=== PATIENT | male | born 1955 | race African-American/Black ===

== ENCOUNTER 2018-11-12 12:09 | Observation (INO) | payer SELFPAY ==
[2018-11-12 12:36] LABS: ABS Eosinophils 0.7 10^3/ul (0-0.6); ABS Lymphocytes 3.4 10^3/ul (1.0-4.8); ABS Neutrophils 5.5 10^3/ul (1.5-7.7); Eosinophil % 6.2 %; Hematocrit 39 % (42-52); Hemoglobin 13.1 g/dL (14.0-18.0); Lymphocyte % 31.9 %; Mean Corpuscular HGB Conc 34 g/dL (31-36); Mean Corpuscular Hemoglobin 31 pg (27-31); Mean Corpuscular Volume 93 fL (80-94); Mean Platelet Volume 7.1 fL (7.4-10.4); Platelet Count 268 10^3/uL (150-450); Red Blood Count 4.17 10^6 /uL (4.18-5.48); Red Cell Distribution Width 15 % (10-15); White Blood Count 10.5 10^3/uL (3.5-10.8)
[2018-11-12 12:41] LABS: INR 0.89 (0.82-1.09)
[2018-11-12] MEDS ORDERED: Nitroglycerin TAB 0.4 MG* 0.4 MG TAB SL ONE (12:42)
[2018-11-12] MEDS ORDERED: Aspirin 81 mg CHEW TAB* 81 MG TAB.CHEW PO ONE (12:42)
--- NOTE | 2018-11-12 12:48 | ED ---
HPI Chest Pain - HPI Summary HPI Summary: 63 year old M presenting to [facility] accompanied by daughter with a chief complaint of intermittent chest pain since 3 days ago. Symptoms aggravated by walking. Symptoms alleviated by nothing. Patient reports pain comes and goes every 2-3 hrs and lasts 15 minutes each time. Patient reports trouble breathing and swelling in both legs. Patient denies nausea, diaphoresis, and coughing. Hx of heart attacks (2) and 6- 7 months ago stent was placed at [facility]. 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 Hx asthma. Patient denies recent travel and hx blood clots, diabetes, high cholesterol, or high BP though he states that he was on medications and was taken off. Patient denies smoking, alcohol, drug use, or allergies to medicine. Patient denies nitroglycerin use currently. - History of Current Complaint Chief Complaint: EDChestPainROMI Time Seen by Provider: 11/12/18 12:36 Hx Obtained From: Patient Onset/Duration: Started Days Ago - 3, Still Present Timing: Intermittent - every 2-3 hrs, 15 minutes each Pain Intensity: 3 Pain Scale Used: 0-10 Numeric Aggravating Factor(s): Movement - walking Alleviating Factor(s): Nothing Associated Signs and Symptoms: Positive: Calf Pain/Swelling - swelling in both legs, Other: - reports difficulty breathing. Negative: Diaphoresis, Nausea, Cough - Allergy/Home Medications Allergies/Adverse Reactions: Allergies Allergy/AdvReac Type Severity Reaction Status Date / Time No Known Allergies Allergy Verified 06/18/14 09:46 Home Medications: Home Medications NK [No Home Medications Reported] 11/12/18 [History Confirmed 11/12/18] PMH/Surg Hx/FS Hx/Imm Hx Endocrine/Hematology History: Denies: Hx Diabetes Respiratory History: Reports: Hx Asthma - Surgical History Surgery Procedure, Year, and Place: stent, hernia operation Infectious Disease History: No Infectious Disease History: Denies: Traveled Outside the [place] in Last 30 Days - Family History Known Family History: Positive: Cardiac Disease, Other - cancer Negative: Diabetes - Social History Alcohol Use: None Hx Substance Use: No Substance Use Type: Reports: None Hx Tobacco Use: Yes Smoking Status (MU): Former Smoker Review of Systems Negative: Skin Diaphoresis Positive: Chest Pain Positive: Other - trouble breathing. Negative: Cough Negative: Nausea Positive: Other - swelling in both legs All Other Systems Reviewed And Are Negative: Yes Physical Exam - Summary Physical Exam Summary: Constitutional: Well-developed, Well-nourished, Alert. (-) Distressed Skin: Warm, Dry HENT: Normocephalic; Atraumatic Eyes: Conjunctiva normal Neck: Musculoskeletal ROM normal neck. (-) JVD, (-) Stridor, (-) Tracheal deviation Cardio: Rhythm regular, rate normal, Heart sounds normal; Intact distal pulses; The pedal pulses are 2+ and symmetric. Radial pulses are 2+ and symmetric. (-) Murmur Pulmonary/Chest wall: Effort normal. (-) Respiratory distress, (-) Wheezes, (-) Rales Abd: Soft, (-) tenderness, (-) Distension, (-) Guarding, (-) Rebound Musculoskeletal: (-) Edema Lymph: (-) Cervical adenopathy Neuro: Alert, Oriented x3 Psych: Mood and affect Normal Triage Information Reviewed: Yes Vital Signs On Initial Exam: Initial Vitals Temp Pulse Resp BP Pulse Ox 98.1 F 74 18 203/80 99 11/12/18 12:11 11/12/18 12:11 11/12/18 12:11 11/12/18 12:11 11/12/18 12:11 Vital Signs Reviewed: Yes Diagnostics - Vital Signs Vital Signs Temp Pulse Resp BP Pulse Ox 11/12/18 12:11 98.1 F 74 18 203/80 99 - Laboratory Lab Results: Lab Results 11/12/18 Range/Units 12:24 WBC 10.5 (3.5-10.8) 10^3/uL RBC 4.17 L (4.18-5.48) 10^6 /uL Hgb 13.1 L (14.0-18.0) g/dL Hct 39 L (42-52) % MCV 93 (80-94) fL MCH 31 (27-31) pg MCHC 34 (31-36) g/dL RDW 15 (10-15) % Plt Count 268 (150-450) 10^3/uL MPV 7.1 L (7.4-10.4) fL Neut % (Auto) 52.0 % Lymph % (Auto) 31.9 % Laporte % (Auto) 9.6 % Eos % (Auto) 6.2 % Baso % (Auto) 0.3 % Absolute Neuts (auto) 5.5 (1.5-7.7) 10^3/ul Absolute Lymphs (auto) 3.4 (1.0-4.8) 10^3/ul Absolute Monos (auto) 1.0 H (0-0.8) 10^3/ul Absolute Eos (auto) 0.7 H (0-0.6) 10^3/ul Absolute Basos (auto) 0.0 (0-0.2) 10^3/ul Absolute Nucleated RBC 0.0 10^3/ul Nucleated RBC % 0.0 Result Diagrams: 11/12/18 12:24 11/12/18 12:24 Lab Statement: Any lab studies that have been ordered have been reviewed, and results considered in the medical decision making process. - Radiology Chest X-Ray Radiology Interpretation Completed By: Radiologist Summary of Radiographic Findings: Per radiologist,. #. Stigmata of obstructive lung disease. No acute pulmonary or cardiac process evident. ED physician has reviewed this imaging report. - EKG 1210 Cardiac Rate: NL - 74 BPM Summary of EKG Findings: borderline ST elevation v1 through v3, otherwise normal sinus rhythm at 74 BPM Re-Evaluation - Re-Evaluation First Eval Re-Evaluation Time: 13:07 Comment: Pain went away after nitroglycerin, slightly short of breath now likely asthma in nature, will give him breathing treatment Second Eval Re-Evaluation Time: 13:18 Comment: Physician discusses patient care with patient. Chest Pain Course/Dx - Course Course Of Treatment: Patient is here with exertional left-sided chest pain that radiates to his left arm. Patient had chest pain upon arrival that was relieved with nitroglycerin. Patient was given aspirin here. Patient had a negative EKG and troponin for evidence of acute ischemia. Patient had negative chest x-ray. Given patient's history of full MIs in the past, in the setting of a story that is concerning for cardiac etiology, patient is admitted to the hospital for further management and evaluation. - Diagnoses Provider Diagnoses: Acute chest pain, Wheezing Discharge ED - Sign-Out/Discharge Documenting (check all that apply): Patient Departure - admit All imaging exams completed and their final reports reviewed: Yes Patient Received Moderate/Deep Sedation with Procedure: No - Discharge Plan Condition: Stable Disposition: ADMITTED TO [facility] - Billing Disposition and Condition Condition: STABLE Disposition: [facility] - Attestation Statements Document Initiated by Gaudencio: Yes Documenting Scribe: Lilly Paz Provider For Whom Gaudencio is Documenting (Include Credential): Dr. Luis Vogel Scribe Attestation: ILilly , scribed for Dr. Luis Vogel on 11/12/18 at 1952. Scribe Documentation Reviewed: Yes Provider Attestation: The documentation as recorded by the Lilly francois accurately reflects the service I personally performed and the decisions made by me, Dr. Luis Vogel Status of Scribfelice Document: Viewed
[2018-11-12 12:53] LABS: Albumin 3.8 g/dL (3.2-5.2); Albumin/Globulin Ratio 1.7 (1-3); BUN/Creatinine Ratio 20.9 (8-20); Calcium 8.8 mg/dL (8.6-10.3); EGFR African American 68.3 (>60); EGFR Non-African American 56.4 (>60); Globulin 2.3 g/dL (2-4); Potassium 4.4 mmol/L (3.5-5.0); Total Bilirubin 0.3 mg/dL (0.2-1.0); Total Protein 6.1 g/dL (6.4-8.9)
[2018-11-12 12:56] LABS: Troponin I 0.01 ng/mL (<0.04)
[2018-11-12] MEDS ORDERED: Albuterol (2.5 MG) 0.5 % CONC 2.5 MG/0.5 ML NEB.SOLN (ICU and ED only) INH ONE (13:06)
[2018-11-12] MEDS ORDERED: Albuterol 2.5 MG/3 ML NEB.SOL* (0.083%) INH ONE (13:19)
[2018-11-12] MEDS ORDERED: Acetaminophen TAB* 325 MG PO PRN (13:46)
[2018-11-12] MEDS ORDERED: Albuterol 2.5 MG/3 ML NEB.SOL* (0.083%) INH PRN (13:46)
[2018-11-12] MEDS ORDERED: Lisinopril TAB* 5 MG PO ONE (13:53)
[2018-11-12 14:06] LABS: HDL Cholesterol 119.9 mg/dL
[2018-11-12] MEDS: Metoprolol Tartrate TAB* 25 MG PO SCH ×2 (14:20→21:18)
--- NOTE | 2018-11-12 15:43 | HP ---
HISTORY AND PHYSICAL: DATE OF ADMISSION: 11/12/18 PRIMARY CARE PROVIDER: None. CHIEF COMPLAINT: Chest pain. HISTORY OF PRESENT ILLNESS: Mr. Alcantar is a 63-year-old male who has a history of coronary artery disease and hypertension, currently on no medications, who presents to the emergency room with complaints of chest pain. He states in early 2018 he was diagnosed with coronary artery disease and underwent stent placement in [place]. He states that he was taken off his Plavix and his blood pressure medication. He ultimately moved to [place] in September 2018 to live with his daughter. He states over the last 3 days he has developed chest pain when playing with his grand kids. He states after lying down the pain would subside. He had shortness of breath associated with the chest discomfort. It did not radiate. He had no diaphoresis or nausea. Ultimately, the patient's daughter was able to convince the patient to present to the emergency room for evaluation. The patient states that the pain that is present currently has been ongoing since last evening. PAST MEDICAL HISTORY: 1. Coronary artery disease, status post stent in early 2018. 2. Hypertension. 3. Asthma. PAST SURGICAL HISTORY: Bilateral inguinal hernia repairs. MEDICATIONS: None. ALLERGIES: None. FAMILY HISTORY: Mom at the age of 79 of coronary artery disease. Dad at the age of 92 of old age. SOCIAL HISTORY: The patient is a former smoker. He quit 4 months ago. Most recently, he was smoking 3 to 4 cigarettes per day, but at his peak he was smoking 1 pack per day. He has smoked for a total of 40 years. He is a former drinker, quitting greater than 30 years ago. He previously used marijuana and cocaine up until 8 months ago. He lives with his daughter. His daughter, Alysha, would be his healthcare proxy. REVIEW OF SYSTEMS: A complete 11-system review of systems was obtained. Pertinent positives and negatives are as per HPI and otherwise negative. PHYSICAL EXAMINATION GENERAL: The patient is a well-developed, middle-aged male seen sitting up in the bed, in no acute distress. VITAL SIGNS: Blood pressure 188/83, pulse 66, respirations 20, temp 98.1, O2 sat 97% on room air. HEENT: Pupils are equal and round. Extraocular muscles are intact. There is evidence of arcus senilis. Oropharynx is clear. Oral mucosa is moist. There is no submandibular, cervical, or supraclavicular adenopathy. PULMONARY: Lungs are clear to auscultation bilaterally. CARDIAC: Normal S1 and S2. Regular rate and rhythm. I do not appreciate any murmurs. There is no lower extremity edema. ABDOMEN: Bowel sounds are present. Abdomen is soft, nontender, nondistended. MUSCULOSKELETAL: There is no cyanosis or clubbing of the digits. There is full active range of motion of all 4 extremities. NEURO: Cranial nerves II through XII are grossly intact. Sensation is intact to light touch throughout. Strength is 5/5 and symmetrical both in the upper and lower extremities bilaterally. SKIN: Warm and dry. There are no rashes. PSYCH: The patient is alert. He is oriented x3. Affect appears appropriate. DIAGNOSTIC STUDIES/LAB DATA: WBC 10.5, hemoglobin 13.1, hematocrit 39, platelets 268. INR is 0.89. Sodium 138, potassium 4.4, chloride 104, CO2 of 29 , BUN 27, creatinine 1.29, glucose 89, calcium 8.8. Bilirubin 0.3, AST 17, ALT 27, alk phos 66. Troponin 0.01. Albumin 3.8. EKG reveals normal sinus rhythm without any acute ST-T wave abnormalities. Chest x-ray: Stigmata of obstructive lung disease. No acute pulmonary or cardiac process is evident. ASSESSMENT AND PLAN: Mr. Alcantar is a 63-year-old male with a history of coronary artery disease, hypertension, past tobacco abuse, and asthma who presents to the emergency room with complaints of chest pain. 1. Chest pain. At this point, I doubt the patient is having an acute coronary syndrome given the duration of his pain and negative troponins and EKGs. The patient, however, is at risk for having progressive coronary artery disease. He states he underwent stenting procedure in early 2019; however, he does not know if he had a drug-eluting stent or a bare metal stent placed at this time. He states that he is not taking any medications including aspirin or Plavix. The patient will be started on aspirin 81 mg p.o. daily. He will have serial troponins and EKGs to ensure that this is not an acute coronary syndrome. I do believe the patient should be observed through the weekend and obtain stress test on Wednesday and try to obtain records from [place]. The patient does admit to what sounds to be claudication symptoms and this should be worked up as an outpatient given his history of coronary artery disease. 2. Hypertension. The patient's blood pressure is uncontrolled. He states that he was taken off his medications as an outpatient previously. He states that he has been off them for about 4 months. At this point, he clearly is needing antihypertensive therapy. I will initiate metoprolol 12.5 mg p.o. twice daily and lisinopril 5 mg daily. The patient does have a mildly elevated creatinine of 1.29. His renal function will need to be monitored in the setting of the addition of lisinopril for blood pressure control. 3. Asthma. The patient became slightly wheezy in the emergency room per ER provider report. The patient received an albuterol nebulizer treatment with good response. He states his breathing feels much improved at this point. 4. DVT prophylaxis. According to the Adult Thrombosis Prophylaxis Risk Factor Assessment Guide, the patient has a total risk factor score of 2 making him moderate risk. Lovenox 40 mg subcutaneous daily will be utilized as DVT prophylaxis. 5. Code status is full. TIME SPENT: Fifty five minutes was spent admitting this patient. [id number]/CPS #: [id number] IRMA
--- NOTE | 2018-11-12 18:44 | PN ---
Hospitalist Progress Note Date of Service: 11/12/18 HOSPITALIST ADDENDUM Called by RN because patient was c/o chest pain and dyspnea. Patient describes having a heart attack earlier this year, had a stent placed at [facility], discharge on Aspirin, Plavix, Crestor, and Metoprolol. States he went back to f/u and told he did not need medications anymore, so he stopped everything. Also has diagnosis of COPD and ran out of Albuterol and Symbicort a couple weeks ago. CVS: normal S1 and S2, RRR Chest: BS+ bilaterally with bilateral wheezing. Repeat EKG shows NSR at with no new ischemic changes, unchanged from prior earlier today. A/P: COPD exacerbation / chest pain / non compliance. - Continue to trend troponins. - Chest pain is resolved now, but suspect increased cardiac demand in the setting of COPD exacerbation. - Resume bronchodilators, inhaled steroids, and give short burst of steroids. - Unable to obtain [place]'s records though [facility] at this time.
[2018-11-12] MEDS ORDERED: methylPREDNISolone SOD 40 MG* 1 ML VIAL IV ONE (19:30)
[2018-11-12] MEDS: Mometasone/Formoter 200/5 MDI INH SCH (19:55)
[2018-11-12] MEDS: Albuterol/Ipratropium NEB.SOL* Albuterol 2.5 MG/Ipratropium 0.5 MG 3 ML INH SCH ×3 (19:56→23:15)
[2018-11-12] MEDS: Enoxaparin(*) 40 MG/0.4 ML SYR SUBCUT SCH (21:18)
[2018-11-13] MEDS: Albuterol/Ipratropium NEB.SOL* Albuterol 2.5 MG/Ipratropium 0.5 MG 3 ML INH SCH ×2 (02:59→07:40)
[2018-11-13] MEDS: Mometasone/Formoter 200/5 MDI INH SCH ×2 (07:40→19:43)
[2018-11-13] MEDS ORDERED: Albuterol/Ipratropium NEB.SOL* Albuterol 2.5 MG/Ipratropium 0.5 MG 3 ML INH PRN (07:45)
[2018-11-13] MEDS: Aspirin 81 mg CHEW TAB* 81 MG TAB.CHEW PO SCH (07:58)
[2018-11-13] MEDS: Lisinopril TAB* 5 MG PO SCH (07:58)
[2018-11-13] MEDS: predniSONE TAB* 20 MG PO SCH (07:58)
[2018-11-13] MEDS: Metoprolol Tartrate TAB* 25 MG PO SCH ×2 (08:13→20:46)
--- NOTE | 2018-11-13 10:25 | PN ---
Subjective Date of Service: 11/13/18 Interval History: Pt is feeling ok this AM. Last evening he developed wheezing and SOB similar to in the ER. Relieved after neb and IV steroids. No c/o SOB at this time. No chest pain. Objective Active Medications: Acetaminophen (Tylenol Tab*) 650 mg PO Q4H PRN PRN Reason: PAIN - MILD Albuterol (Ventolin 2.5 Mg/3 Ml Neb.Sherrill*) 2.5 mg INH Q4H PRN PRN Reason: SOB/WHEEZING Albuterol/Ipratropium (Duoneb (Albuterol 2.5 Mg/Ipratropium 0.5 Mg)) 1 neb INH RT.[id number] AWAKE PRN PRN Reason: SOB/WHEEZING Aspirin (Aspirin 81 Mg Chew Tab*) 81 mg PO DAILY [facility] Last Admin: 11/13/18 07:58 Dose: 81 mg Enoxaparin Sodium (Lovenox(*)) 40 mg SUBCUT Q24H [facility] Last Admin: 11/12/18 21:18 Dose: 40 mg Lisinopril (Prinivil Tab*) 5 mg PO DAILY [facility] Last Admin: 11/13/18 07:58 Dose: 5 mg Metoprolol Tartrate (Lopressor Tab*) 12.5 mg PO Q12HR [facility] Last Admin: 11/13/18 08:13 Dose: 12.5 mg Mometasone Furoate/Formoterol Fumar (Dulera 200/5 Mdi*) 2 puff INH BID [facility] Last Admin: 11/13/18 07:40 Dose: 2 puff Prednisone (Deltasone Tab*) 40 mg PO DAILY [facility] Stop: 11/17/18 09:01 Last Admin: 11/13/18 07:58 Dose: 40 mg Vital Signs - 8 hr 11/13/18 11/13/18 11/13/18 03:32 07:43 07:45 Temperature 97.4 F Pulse Rate 54 61 59 Respiratory 18 18 18 Rate Blood Pressure 151/66 (mmHg) O2 Sat by Pulse 98 95 100 Oximetry Oxygen Devices in Use Now: None Appearance: Middle aged male sitting up in bed, eating breakfast, NAD Eyes: No Scleral Icterus Ears/Nose/Mouth/Throat: Mucous Membranes Moist Respiratory: Symmetrical Chest Expansion and Respiratory Effort, Clear to Auscultation Cardiovascular: NL Sounds; No Murmurs; No JVD, RRR, No Edema Abdominal: NL Sounds; No Tenderness; No Distention Extremities: No Clubbing, Cyanosis Skin: No Nodules or Sclerosis Neurological: Alert and Oriented x 3 Result Diagrams: 11/12/18 12:24 11/12/18 12:24 Additional Lab and Data: Lab Results 11/12/18 Range/Units 12:24 WBC 10.5 (3.5-10.8) 10^3/uL RBC 4.17 L (4.18-5.48) 10^6 /uL Hgb 13.1 L (14.0-18.0) g/dL Hct 39 L (42-52) % MCV 93 (80-94) fL MCH 31 (27-31) pg MCHC 34 (31-36) g/dL RDW 15 (10-15) % Plt Count 268 (150-450) 10^3/uL MPV 7.1 L (7.4-10.4) fL Neut % (Auto) 52.0 % Lymph % (Auto) 31.9 % Citrus % (Auto) 9.6 % Eos % (Auto) 6.2 % Baso % (Auto) 0.3 % Absolute Neuts (auto) 5.5 (1.5-7.7) 10^3/ul Absolute Lymphs (auto) 3.4 (1.0-4.8) 10^3/ul Absolute Monos (auto) 1.0 H (0-0.8) 10^3/ul Absolute Eos (auto) 0.7 H (0-0.6) 10^3/ul Absolute Basos (auto) 0.0 (0-0.2) 10^3/ul Absolute Nucleated RBC 0.0 10^3/ul Nucleated RBC % 0.0 Assess/Plan/Problems-Billing Mr Alcantar is a 63 yo M who has a h/o HTN and CAD on no medications who presented to the ER with c/o chest pain. - Patient Problems (1) Chest pain Current Visit: Yes Status: Acute Code(s): R07.9 - CHEST PAIN, UNSPECIFIED SNOMED Code(s): 11709789 Comment: Pt has been restarted on metoprolol, lisinopril and ASA. Plan for stress test tomorrow. He does not know if he has a bare metal stent or CHARBEL. (2) Asthma Current Visit: Yes Status: Acute Code(s): J45.909 - UNSPECIFIED ASTHMA, UNCOMPLICATED SNOMED Code(s): 516598889 Comment: ?mild asthma possible COPD exacerbation last evening. He was reportedly wheezy and tight. Started on solumedrol and standing nebs. Much improved this AM. He told me yesterday he ran out of his inhaler at home. (3) HTN (hypertension) Current Visit: Yes Status: Acute Code(s): I10 - ESSENTIAL (PRIMARY) HYPERTENSION SNOMED Code(s): 67235713 Comment: BP much better after starting on metoprolol and lisinopril. Continue to monitor and adjust as needed. (4) DVT prophylaxis Current Visit: Yes Status: Acute Code(s): Z29.9 - ENCOUNTER FOR PROPHYLACTIC MEASURES, UNSPECIFIED SNOMED Code(s): 358380132 Comment: lovenox (5) Full code status Current Visit: Yes Status: Acute Code(s): Z78.9 - OTHER SPECIFIED HEALTH STATUS SNOMED Code(s): 834781341
[2018-11-13] MEDS: Enoxaparin(*) 40 MG/0.4 ML SYR SUBCUT SCH (20:46)
[2018-11-14] MEDS: Mometasone/Formoter 200/5 MDI INH SCH (07:34)
[2018-11-14 08:39] VITALS: BP 122/72
[2018-11-14] MEDS: Lisinopril TAB* 5 MG PO SCH (08:46)
[2018-11-14] MEDS: predniSONE TAB* 20 MG PO SCH (08:46)
[2018-11-14] MEDS: Aspirin 81 mg CHEW TAB* 81 MG TAB.CHEW PO SCH (08:46)
[2018-11-14] MEDS: Metoprolol Tartrate TAB* 25 MG PO SCH (11:06)
--- NOTE | 2018-11-14 13:26 | DS ---
AMENDED REPORT NOW INCLUDES DESIGNATED COSIGNER - ESIGNED BEFORE ADJUSTMENTS DISCHARGE SUMMARY: DATE OF ADMISSION: 11/12/18 DATE OF DISCHARGE: 11/14/18 ATTENDING PHYSICIAN: Dr. García.* (DICTATED BY CLAYTON MARROQUIN NP) PRIMARY CARE PHYSICIAN: No PCP. PRIMARY DIAGNOSES: Chest pain and hypertension. SECONDARY DIAGNOSIS: Asthma. PROCEDURES: None. STUDIES: None. PERTINENT LAB DATA: None for this admission. HOSPITAL COURSE: This is a 63-year-old male with past medical history significant for CAD with stenting in early 2018, hypertension, asthma that presented to the emergency department on 11/12/18 with chest pain and shortness of breath. VA was ruled out with serial negative troponins and an EKG that showed left ventricular hypertrophy. During the hospital course, the patient was determined to not be on aspirin or Plavix and was started on 81 mg of aspirin. It was determined that the patient's blood pressure medications had been stopped 4 months prior. Denied stopping medications on his own, was started on lisinopril and metoprolol while here. Denies any further chest pain or shortness of breath. He was supposed to have underwent a stress test today, though the patient became agitated and stated he was hungry and had his daughter bring him food, which he ate despite being told that he was going to be transported shortly for procedure. He did not want to wait another day for the procedure and opted to leave AMA. Reviewed the risks of , cardiac risk and VA. I do not agree with his decision as his FERMIN score was 3, but I believe the patient to be of capacity to make this decision. REVIEW OF SYSTEMS: Performed an 11-point system review. There were no pertinent positives. Negatives included no chest pain, shortness of breath, no palpitations. IMPRESSION: This is a 63-year-old patient with past medical history significant for CAD with stenting in early 2018, hypertension, and asthma that presented to the ED on 11/12/18 with chest pain and shortness of breath. VA was ruled out with serial negative trops and an EKG showed left ventricular hypertrophy. The patient is to undergo stress test during this admission. PHYSICAL EXAMINATION: General: The patient is a well-developed, middle-aged male, seeing sitting up in the bed, in no acute distress. Vital Signs: T 98.3 tympanically, 57 pulse, 18 resp, 97% oxygen on room air, blood pressure 122/72. HEENT: Pupils are equal and round. Extraocular muscles intact. Evidence of arcus senilis. Oropharynx clear. Oral mucosa moist. Pulmonary: Lungs are clear to auscultation bilaterally. Cardiac: S1, S2. Heart rate regular. I do not appreciate any murmurs, rubs, or gallops. No lower extremity edema. Abdomen: Abdomen is soft, nontender. Positive bowel sounds x4. Nondistended. Musculoskeletal: No clubbing or cyanosis of the digits. Full range of motion in all extremities. Neuro: No focal deficits appreciated. Strength is 5/5 in bilateral upper and lower extremities. Skin is warm and dry. No rashes or open areas. Psych: The patient is alert and oriented x4, agitated. MEDICATIONS UPON DISCHARGE: 1. Aspirin 81 mg p.o. daily. 2. Lisinopril 5 mg p.o. daily. 3. Metoprolol tartrate 12.5 mg p.o. daily. 4. Albuterol inhaler 2 puffs q.4 hours p.r.n. New prescriptions sent to [facility] include ASA, metoprolol and lisinopril. CONDITION UPON DISCHARGE: Guarded. DISPOSITION: AMA. TIME SPENT: Forty minutes. CLAYTON MARROQUIN NP [id number]/CPS #: [id number] MTDD
== END 2018-11-14 11:30 | disposition left against medical advice (07) ==
LOC: ED 12:09 → MEDTELE 13:46
PROVIDERS: ADMIT Hospitalist; ATTEND Internal Medicine
DX: R07.9 Chest pain, unspecified (principal); I10 Essential (primary) hypertension; J45.909 Unspecified asthma, uncomplicated; I25.10 Atherosclerotic heart disease of native coronary artery without angina pectoris; Z79.899 Other long term (current) drug therapy; Z95.5 Presence of coronary angioplasty implant and graft; Z87.891 Personal history of nicotine dependence; R60.0 Localized edema; R94.31 Abnormal electrocardiogram [ECG] [EKG]
CPT/HCPCS: 36415; 71046; 80053; 80061; 83036; 84484; 85025; 85610; 93005; 94640; 96372; 96374; 99284; A9270-GY; G0378; J1650; J2920; J7512

== ENCOUNTER 2018-11-16 04:48 | Emergency (ER) | payer SELFPAY ==
--- NOTE | 2018-11-16 05:26 | ED ---
Shortness of Breath - HPI Summary HPI Summary: 63 year old AA male with a history of asthma, hypertension, high cholesterol and cardiac stents has SOB for the last hour. SOB woke him from his sleep. He is having chest pain that is localized and does not radiate. Cough with green sputum. No back, shoulder or arm pain. No abdominal pain. Patient was seen in the ED on 11/12 for a similar episode of chest pain and SOB and was admitted and subsequently discharged. Patient was put on medications for asthma, high blood pressure and high cholesterol and scheduled for a stress test which he did not receive. Patient has a history of asthma but has not taken an inhaler or medications for it. Patient states he did not get medications because he has no insurance. Nothing makes the chest pain or SOB better. Dyspnea at rest and increased chest pain while breathing. No fever. - History of Current Complaint Chief Complaint: EDShortnessOfBreath Time Seen by Provider: 11/16/18 05:01 Hx Obtained From: Patient Onset/Duration: Sudden Onset Timing: Constant Current Severity: Severe Dyspnea At: Rest Aggravating Factors: Movement, Deep Breaths Alleviating Factors: Nothing Associated Signs & Symptoms: Cough (Productive) - green sputum, Wheezing, Chest Pain w/Cough Related History: Similar Episode - was seen in ED and admitted for similar episode and chest pain on 11/12/18 - Risk Factors Cardiac: CAD, Smoking, Elevated lipids, Hypertension, Family History Pseudomonas: Negative Tuberculosis: Smoking - Allergy/Home Medications Allergies/Adverse Reactions: Allergies Allergy/AdvReac Type Severity Reaction Status Date / Time No Known Allergies Allergy Verified 06/18/14 09:46 PMH/Surg Hx/FS Hx/Imm Hx Endocrine/Hematology History: Denies: Hx Diabetes Cardiovascular History: Reports: Hx Coronary Artery Disease, Hx Hypercholesterolemia, Hx Hypertension Respiratory History: Reports: Hx Asthma, Hx Chronic Obstructive Pulmonary Disease (COPD) Sensory History: Denies: Hx Contacts or Glasses, Hx Hearing Aid Opthamlomology History: Denies: Hx Contacts or Glasses - Surgical History Surgery Procedure, Year, and Place: stent, hernia operation Infectious Disease History: No Infectious Disease History: Denies: Traveled Outside the [place] in Last 30 Days - Family History Known Family History: Positive: Cardiac Disease, Other - cancer Negative: Diabetes - Social History Alcohol Use: None Hx Substance Use: No Substance Use Type: Reports: None Hx Tobacco Use: Yes Smoking Status (MU): Former Smoker Review of Systems Constitutional: Negative Negative: Fever, Chills, Fatigue Eyes: Negative ENT: Negative Positive: Palpitations, Chest Pain Positive: Shortness Of Breath - SOB woke him up out of his sleep, Cough - green sputum Gastrointestinal: Negative Negative: Abdominal Pain Genitourinary: Negative Positive: no symptoms reported Musculoskeletal: Negative Skin: Negative Neurological: Negative Psychological: Normal All Other Systems Reviewed And Are Negative: Yes Physical Exam Triage Information Reviewed: Yes Vital Signs On Initial Exam: Initial Vitals Temp Pulse Resp BP Pulse Ox 98 F 72 24 204/121 98 11/16/18 04:49 11/16/18 04:49 11/16/18 04:49 11/16/18 04:49 11/16/18 04:49 Vital Signs Reviewed: Yes Appearance: Positive: Ill-Appearing Skin: Positive: Warm, Skin Color Reflects Adequate Perfusion, Dry Head/Face: Positive: Normal Head/Face Inspection Eyes: Positive: Normal, EOMI, MARCELLA, Conjunctiva Clear ENT: Positive: Normal ENT inspection, Hearing grossly normal Neck: Positive: Supple, Nontender, No Lymphadenopathy Respiratory/Lung Sounds: Positive: Decreased Breath Sounds - decreased breath sounds bilaterally, Wheezes - tight wheezing throughout; poor air exchange Cardiovascular: Positive: Normal, RRR, Pulses are Symmetrical in both Upper and Lower Extremities Abdomen Description: Positive: Nontender, Soft Bowel Sounds: Positive: Present Musculoskeletal: Positive: Normal Neurological: Positive: Alert, Oriented to Person Place, Time, CN Intact II-III Psychiatric: Positive: Normal Diagnostics - Vital Signs Vital Signs Temp Pulse Resp BP Pulse Ox 11/16/18 04:49 98 F 72 24 204/121 98 - Laboratory Result Diagrams: 11/16/18 05:40 11/16/18 05:40 Lab Statement: Any lab studies that have been ordered have been reviewed, and results considered in the medical decision making process. Course/Dx - Course Assessment/Plan: Labs and CXR ordered. WBC 8.8, troponin .01, BNP 19. CXR compared to previous admission shows no acute changes; no signs of PE, pneumothorax or pleural effusion. Patient given albuterol treatment with improvment of symptoms. Gave 500mg levoquin. Patient discharged with prednisone 40mg/ day x 5 days and 500mg levoquin daily for 10 days. Patient instructed to continue use of inhaler every 4 hours and for shortness of breath as needed. Follow up with [facility]. Return to ED with any worsening symptoms. - Diagnoses Differential Diagnosis/HQI/PQRI: Positive: Asthma, Bronchitis, CHF, COPD Exacerbation, Pulmonary Embolism Provider Diagnoses: HTN (hypertension), Asthma, Chest pain, COPD (chronic obstructive pulmonary disease) Discharge ED - Sign-Out/Discharge Documenting (check all that apply): Patient Departure Patient Received Moderate/Deep Sedation with Procedure: No - Discharge Plan Condition: Fair Disposition: HOME Prescriptions: Levofloxacin TAB* [Levaquin TAB*] 500 mg PO DAILY #10 tab predniSONE [Prednisone 20 MG TAB] 40 mg PO DAILY #10 tablet Patient Education Materials: COPD (Chronic Obstructive Pulmonary Disease) (ED) Referrals: No Primary Care Phys,NOPCP [Primary Care Provider] - Additional Instructions: You are being treated for a COPD exacerbation Take your inhaler every 4 hours and as needed for shortness of breath Take your prescribed antibiotic and prednisone as instructed until the medication is gone Avoid triggers that cause you to be short of breath Follow up with the Care [facility] as soon as possible Return to the ED with any worsening symptoms, chest pain, shortness of breath - Billing Disposition and Condition Condition: FAIR Disposition: Home - Attestation Statements Document Initiated by Gaudencio: Yes Documenting Scribe: lowell ochoa Provider For Whom Gaudencio is Documenting (Include Credential): dr yumiko Francois Attestation: Ilowell, scribed for dr calderon on 11/17/18 at 2018. Scribe Documentation Reviewed: Yes Provider Attestation: The documentation as recorded by the lowell francois accurately reflects the service I personally performed and the decisions made by dr yumiko sexton Status of Scribe Document: Ready
[2018-11-16 05:59] LABS: ABS Basophils 0.1 10^3/ul (0-0.2); ABS Eosinophils 0.5 10^3/ul (0-0.6); ABS Lymphocytes 3.3 10^3/ul (1.0-4.8); Eosinophil % 5.5 %; Hematocrit 42 % (42-52); Lymphocyte % 37.2 %; Mean Corpuscular HGB Conc 33 g/dL (31-36); Mean Corpuscular Hemoglobin 31 pg (27-31); Mean Corpuscular Volume 94 fL (80-94); Mean Platelet Volume 7.1 fL (7.4-10.4); Nucleated Red Blood Cells % 0.1; Platelet Count 284 10^3/uL (150-450); Red Blood Count 4.47 10^6 /uL (4.18-5.48); Red Cell Distribution Width 16 % (10-15); White Blood Count 8.8 10^3/uL (3.5-10.8)
[2018-11-16] MEDS: Albuterol 2.5 MG/3 ML NEB.SOL* (0.083%) INH ONE (05:59)
[2018-11-16 06:05] LABS: INR 0.88 (0.82-1.09)
[2018-11-16] MEDS: NS 0.9% 1000 ML** 1,000 ML IV ONE (06:09)
[2018-11-16] MEDS: methylPREDNISolone SOD 40 MG* 1 ML VIAL IV ONE (06:09)
[2018-11-16 06:22] LABS: Albumin 4.1 g/dL (3.2-5.2); Albumin/Globulin Ratio 1.8 (1-3); BUN/Creatinine Ratio 28.8 (8-20); EGFR African American 87.6 (>60); EGFR Non-African American 72.4 (>60); Globulin 2.3 g/dL (2-4); Potassium 4.6 mmol/L (3.5-5.0); Total Bilirubin 0.4 mg/dL (0.2-1.0); Total Protein 6.4 g/dL (6.4-8.9)
[2018-11-16 06:24] LABS: Troponin I 0.01 ng/mL (<0.04)
[2018-11-16] MEDS: Levofloxacin TAB* 500 MG PO ONE (06:52)
[2018-11-16 07:11] VITALS: BP 0/0
== END 2018-11-16 07:10 | disposition home or self-care (01) ==
LOC: ED 04:48
DX: J44.9 Chronic obstructive pulmonary disease, unspecified (principal); I10 Essential (primary) hypertension; I25.10 Atherosclerotic heart disease of native coronary artery without angina pectoris; E78.00 Pure hypercholesterolemia, unspecified; Z87.891 Personal history of nicotine dependence; Z79.82 Long term (current) use of aspirin; Z79.899 Other long term (current) drug therapy
CPT/HCPCS: 36415; 71046; 80053; 83605; 83880; 84484; 85025; 85610; 87040; 93005; 96361; 96374; 99282; J2920

== ENCOUNTER 2018-11-19 12:39 | Emergency (ER) | payer SELFPAY ==
--- NOTE | 2018-11-19 12:51 | ED ---
Complex/Multi-Sys Presentation - HPI Summary HPI Summary: 63 year old M brought in by EMS to [facility] complains of sudden onset shortness of breath followed by sharp and stabbing chest pain while sitting down 45 minutes ago today. Symptoms aggravated by nothing. Symptoms alleviated by aspirin 162 mg , 1 nitroglycerin, and nebulizer given by EMS. Patient states that his chest pain resolved completely after the medications given by EMS. The patient rates the pain 0/10 in severity. Patient states he has hx MT x2 with stents. Patient states he takes aspirin 81 mg daily. Patient states he has hx COPD. Patient states he is a former smoker. - History Of Current Complaint Hx Obtained From: Patient Onset/Duration: Sudden Onset, Lasting Minutes - 45, Still Present - shortness of breath, Resolved - chest pain Timing: Constant, Minutes - 45 Character: Sharp Aggravating Factor(s): Nothing Alleviating Factor(s): aspirin 162 mg, 1 nitroglycerin, and nebulizer - Allergies/Home Medications Allergies/Adverse Reactions: Allergies Allergy/AdvReac Type Severity Reaction Status Date / Time No Known Allergies Allergy Verified 11/19/18 13:43 Home Medications: Home Medications Albuterol inh POWDER (NF) [Proair Respiclick] 1 puff PO Q6H 11/19/18 [History Confirmed 11/19/18] PMH/Surg Hx/FS Hx/Imm Hx Endocrine/Hematology History: Denies: Hx Diabetes Cardiovascular History: Reports: Hx Coronary Artery Disease, Hx Hypercholesterolemia, Hx Hypertension, Hx Myocardial Infarction - x2 Respiratory History: Reports: Hx Asthma, Hx Chronic Obstructive Pulmonary Disease (COPD) Sensory History: Denies: Hx Contacts or Glasses, Hx Hearing Aid Opthamlomology History: Denies: Hx Contacts or Glasses - Surgical History Surgery Procedure, Year, and Place: stent, hernia operation - Family History Known Family History: Positive: Cardiac Disease, Other - cancer Negative: Diabetes - Social History Alcohol Use: None Hx Substance Use: No Substance Use Type: Reports: None Hx Tobacco Use: Yes Smoking Status (MU): Former Smoker Review of Systems Positive: Chest Pain - resolved after aspirin and NTG Positive: Shortness Of Breath All Other Systems Reviewed And Are Negative: Yes Physical Exam - Summary Physical Exam Summary: Appearance: The patient is well-nourished in no acute distress and in no acute pain. Skin: Patient is a little diaphoretic HEENT: The head is normocephalic and atraumatic. The pupils are equal and reactive. The conjunctivae are clear and without drainage. Nares are patent and without drainage. Mouth reveals moist mucous membranes, and the throat is without erythema and exudate. The external ears are intact. The ear canals are patent and without drainage. The tympanic membranes are intact. Neck: The neck is supple with full range of motion and non-tender. There are no carotid bruits. There is no neck vein distension. Respiratory: Chest is non-tender. Lungs are clear to auscultation and breath sounds are symmetrical and equal. Cardiovascular: Heart is regular rate and rhythm. There is no murmur or rub auscultated. There is no peripheral edema and pulses are symmetrical and equal. Abdomen: The abdomen is soft and non-tender. There are normal bowel sounds heard in all four quadrants and there is no organomegaly palpated. Musculoskeletal: There is no back tenderness noted. Extremities are non-tender with full range of motion. There is good capillary refill. There is no peripheral edema or calf tenderness elicited. Neurological: Patient is alert and oriented to person, place and time. The patient has symmetrical motor strength in all four extremities. Cranial nerves are grossly intact. Deep tendon reflexes are symmetrical and equal in all four extremities. Psychiatric: The patient has an appropriate affect and does not exhibit any anxiety or depression. Triage Information Reviewed: Yes Vital Signs Reviewed: Yes Diagnostics - Laboratory Result Diagrams: 11/19/18 12:52 11/19/18 12:52 Lab Statement: Any lab studies that have been ordered have been reviewed, and results considered in the medical decision making process. - Radiology CXR Radiology Interpretation Completed By: Radiologist Summary of Radiographic Findings: LOW LUNG VOLUMES, SMALL BIBASILAR INFILTRATES SUGGESTIVE OF ATELECTASIS. ED physician has reviewed this report. - EKG 1246 Cardiac Rate: NL - 71 BPM EKG Rhythm: Sinus Rhythm Summary of EKG Findings: Normal sinus rhythm 71 BPM Re-Evaluation - Re-Evaluation First Eval Re-Evaluation Time: 17:31 Comment: second troponin is 0.01. patient feels better. patient is agreeable to discharge Complex Multi-Symp Course/Dx Course Of Treatment: By the time Mr. Alcantar arrived by ambulance his chest pain was gone. He reportedly disappeared within seconds of him being given a nitroglycerin. He was also given aspirin in the ambulance. He was nontoxic in appearance with stable vitals. His EKG, chest x-ray and labs including a delayed troponin were all within normal limits. 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 - Diagnoses Provider Diagnoses: Chest pain Discharge ED - Sign-Out/Discharge Documenting (check all that apply): Patient Departure - Discharge Patient Received Moderate/Deep Sedation with Procedure: No - Discharge Plan Condition: Stable Disposition: HOME Patient Education Materials: Chest Pain (ED) Referrals: [facility] [Outside] - 2 Days Additional Instructions: Follow up with [facility] in the next 2-3 days. Return to the Emergency Department for new or worsening symptoms. - Billing Disposition and Condition Condition: STABLE Disposition: Home - Attestation Statements Document Initiated by Gaudencio: Yes Documenting Scribe: Scarlett Kelley Provider For Whom Darrenibe is Documenting (Include Credential): Peter Pete MD Scribe Attestation: IScarlett, scribed for Peter Pete MD on 11/19/18 at 1954. Scribe Documentation Reviewed: Yes Provider Attestation: The documentation as recorded by the Scarlett francois accurately reflects the service I personally performed and the decisions made by me, Peter Pete MD Status of Scribe Document: Viewed
[2018-11-19 13:00] LABS: Hematocrit 38 % (42-52); Hemoglobin 12.7 g/dL (14.0-18.0); Mean Corpuscular HGB Conc 33 g/dL (31-36); Mean Corpuscular Hemoglobin 31 pg (27-31); Mean Corpuscular Volume 95 fL (80-94); Mean Platelet Volume 7.1 fL (7.4-10.4); Platelet Count 266 10^3/uL (150-450); Red Blood Count 4.04 10^6 /uL (4.18-5.48); Red Cell Distribution Width 15 % (10-15); White Blood Count 10.4 10^3/uL (3.5-10.8)
[2018-11-19 13:05] LABS: INR 0.91 (0.82-1.09)
[2018-11-19 13:31] LABS: ABS Basophils 0.1 10^3/ul (0-0.2); ABS Eosinophils 0.3 10^3/ul (0-0.6); ABS Lymphocytes 2.4 10^3/ul (1.0-4.8); ABS Monocytes 0.8 10^3/ul (0-0.8); ABS Neutrophils 6.8 10^3/ul (1.5-7.7); Eosinophil % 3.3 %; Lymphocyte % 22.8 %; Nucleated Red Blood Cells % 0.1
[2018-11-19 13:36] LABS: Albumin 3.8 g/dL (3.2-5.2); Albumin/Globulin Ratio 1.8 (1-3); BUN/Creatinine Ratio 22.9 (8-20); Calcium 8.8 mg/dL (8.6-10.3); EGFR Non-African American 79.4 (>60); Globulin 2.1 g/dL (2-4); Total Bilirubin 0.3 mg/dL (0.2-1.0); Total Protein 5.9 g/dL (6.4-8.9)
[2018-11-19 13:38] LABS: Troponin I 0.01 ng/mL (<0.04)
[2018-11-19] MEDS ORDERED: Acetaminophen TAB* 325 MG PO ONE (14:27)
[2018-11-19 14:59] LABS: Potassium 5.1 mmol/L (3.5-5.0)
[2018-11-19 17:00] LABS: Urine Appearance Clear; Urine Bacteria Absent (Absent); Urine Bilirubin Negative (Negative); Urine Blood 1+ (Negative); Urine Color Yellow; Urine Glucose Negative (Negative); Urine Ketones Negative (Negative); Urine Nitrite Negative (Negative); Urine Protein Negative (Negative); Urine Red Blood Cell Absent (Absent); Urine Specific Gravity 1.014 (1.010-1.030); Urine Urobilinogen Negative (Negative); Urine White Blood Cell Absent (Absent)
[2018-11-19 17:53] VITALS: BP 161/66
== END 2018-11-19 17:45 | disposition home or self-care (01) ==
LOC: ED 12:39
DX: R07.9 Chest pain, unspecified (principal); J44.9 Chronic obstructive pulmonary disease, unspecified; R06.02 Shortness of breath; Z87.891 Personal history of nicotine dependence; I25.10 Atherosclerotic heart disease of native coronary artery without angina pectoris; E78.00 Pure hypercholesterolemia, unspecified; I25.2 Old myocardial infarction; I10 Essential (primary) hypertension; R94.31 Abnormal electrocardiogram [ECG] [EKG]
CPT/HCPCS: 36415; 71045; 80053; 81003; 81015; 83605; 84484; 85025; 85610; 93005; 99285; A9270-GY

== ENCOUNTER 2018-12-30 09:46 | Observation (INO) | payer SELFPAY ==
[2018-12-30] MEDS ORDERED: NS 0.9% 1000 ML** 1,000 ML IV ONE (09:53)
[2018-12-30] MEDS ORDERED: methylPREDNISolone 125 MG* 2 ML VIAL IV ONE (09:53)
[2018-12-30] MEDS ORDERED: Albuterol/Ipratropium NEB.SOL* Albuterol 2.5 MG/Ipratropium 0.5 MG 3 ML INH ONE ×2 (09:53→11:51)
[2018-12-30] MEDS ORDERED: Magnesium Sulfate 2 GM IV* 2 GM/50 ML BAG IVPB ONE (09:55)
--- OUTSIDE RECORDS SUMMARY | 2018-12-30 09:57 | XMS REPORT | Continuity of Care Document ---
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 Problems Description No Information Available Social History Type Date Description Comments Sex Unknown Allergies, Adverse Reactions, Alerts Description No Known Drug Allergies Medications Active Medications SIG Qnty Indications Ordering Date Provider Nebulizer System use 4 times/day as 1units J45.998 Nida Rai, 2018 ALL-In-One needed DO Misc Albuterol Sulfate 1 unit dose via 180ml J45.998 Nida Rai, 11/22/2018 nebulizer every 4 DO (2.5mg/3ML) 0.083% hours as needed Nebulizer Symbicort 2 puff twice a day 6gm J45.998 iNda Rai, 11/22/2018 DO 160-4.5mcg/Act Aerosol Aspirin Adult Low 1 by mouth every Unknown Dose day 81mg Tablets Lisinopril 1 by mouth every Unknown 5mg day Tablets Metoprolol Tartrate 1/2 tab PO qd Unknown 25mg Tablets Albuterol Sulfate one puff every 6 8.500gm Nida Rai, HFA hours DO 108(90Base) mcg/Act Aerosol Prednisone 2 tablets day one Unknown 20mg and two, 1 tablet Tablets day 3,4,5, then one half tablet day 6,7,8 and 9 Immunizations Description No Information Available Vital Signs Date Vital Result Comment 11/22/2018 11:13am Height 71 inches 5'11" Weight 200.50 lb Heart Rate 72 /min BP Systolic 130 mmHg BP Diastolic 78 mmHg Body Temperature 98.2 F O2 % BldC Oximetry 94 % BMI (Body Mass Index) 28.0 kg/m2 Results Description No Information Available Procedures Description No Information Available Medical Devices Description No Information Available Encounters Type Date Location Provider Dx Diagnosis Office Visit 11/22/2018 [facility] Internal Nida Senner, R07.9 Chest pain, 11:00a Medicine - Suite DO unspecified R I10 Essential (primary) hypertension J45.998 Other asthma Z12.11 Encounter for screening for malignant neoplasm of colon Z12.2 Encntr screen for malignant neoplasm of respiratory organs Office Visit 11/14/2018 [facility] Hilda Melchor, R07.9 Chest pain, 9:31a Assoc,pc [employer] unspecified Hospitalists I10 Essential (primary) hypertension J45.909 Unspecified asthma, uncomplicated Office Visit 11/12/2018 9:30a [facility] Brii R07.9 Chest pain, Assoc,pc Cassius, D.O. unspecified Hospitalists I10 Essential (primary) hypertension J45.909 Unspecified asthma, uncomplicated Assessments Date Code Description Provider 11/22/2018 R07.9 Chest pain, unspecified Nida Senner, DO 11/22/2018 I10 Essential (primary) hypertension Nida Senner, DO 11/22/2018 J45.998 Other asthma Nida Senner, DO 11/22/2018 Z12.11 Encounter for screening for malignant Nida Senner, DO neoplasm of colon 11/22/2018 Z12.2 Encounter for screening for malignant Nida Senner, DO neoplasm of respiratory organs 11/14/2018 R07.9 Chest pain, unspecified Hilda Melchor, [employer] 11/14/2018 I10 Essential (primary) hypertension Hilda Melchor, [employer] 11/14/2018 J45.909 Unspecified asthma, uncomplicated Hilda Melchor, [employer] 11/13/2018 R07.9 Chest pain, unspecified Brii Hammonds D.O. 11/13/2018 J45.909 Unspecified asthma, uncomplicated Briixavier Hammonds D.O. 11/13/2018 I10 Essential (primary) hypertension Brii Hammonds D.O. 11/12/2018 R07.9 Chest pain, unspecified Brii Hammonds D.O. 11/12/2018 I10 Essential (primary) hypertension Brii Hammonds D.O. 11/12/2018 J45.909 Unspecified asthma, uncomplicated Brii Hammonds D.O. Plan of Treatment Future Appointment(s):02/21/2019 4:00 pm - Nida Rai DO at [facility] Internal Medicine - [address]/22/2018 - LILY Jamison07.9 Chest pain, unspecifiedNew Orders:Stress Test, Exercise Echocardiogram, Ordered: Comments:you need a stress testFollow up:3 [id number] Essential (primary) hypertensionComments:your blood pressure is good today--keep taking the metoprolol and vqwxfezuijO05.998 Other asthmaNew Medication:Nebulizer System ALL -In-One - use 4 times/day as neededAlbuterol Sulfate (2.5 mg/3ML) 0.083% - 1 unit dose via nebulizer every 4 hours as neededSymbicort 160-4.5 mcg/Act - 2 puff twice a dayZ12.11 Encounter for screening for malignant neoplasm of colonReferral:Navarro Shane MD, LjuzkamtxwionyrrV56.2 Encounter for screening for malignant neoplasm of respiratory organsNew Xrays:CT Lung Screening-Low Dose , Ordered: 11/22/18 Functional Status Description No Information Available Mental Status Description No Information Available Referrals Refer to Dr Reason for Referral Status Appt Date Navarro Shane MD Created [address] [place] [id number] [phone]
[2018-12-30 10:12] LABS: ABS Basophils 0.1 10^3/ul (0-0.2); ABS Lymphocytes 2.3 10^3/ul (1.0-4.8); Eosinophil % 10.3 %; Hematocrit 41 % (42-52); Hemoglobin 13.7 g/dL (14.0-18.0); Lymphocyte % 24.6 %; Mean Corpuscular HGB Conc 33 g/dL (31-36); Mean Corpuscular Hemoglobin 31 pg (27-31); Mean Corpuscular Volume 94 fL (80-94); Platelet Count 287 10^3/uL (150-450); Red Blood Count 4.35 10^6 /uL (4.18-5.48); Red Cell Distribution Width 14 % (10-15); White Blood Count 9.4 10^3/uL (3.5-10.8)
[2018-12-30 10:18] LABS: INR 0.99 (0.82-1.09)
[2018-12-30 10:59] LABS: Albumin/Globulin Ratio 1.5 (1-3); BUN/Creatinine Ratio 14.4 (8-20); C Reactive Protein 3.4 mg/L (<8.01); Calcium 9.2 mg/dL (8.6-10.3); EGFR African American 62.7 (>60); EGFR Non-African American 51.8 (>60); Globulin 2.6 g/dL (2-4); Potassium 4.2 mmol/L (3.5-5.0); Total Bilirubin 0.4 mg/dL (0.2-1.0); Total Protein 6.6 g/dL (6.4-8.9)
--- NOTE | 2018-12-30 11:41 | ED ---
HPI Cardiac - HPI Summary HPI Summary: Patient is a 63-year-old with a history of COPD, hypertension, [place] in March 2018 and subsequently again in June 2018 and a 40+ pack year per day smoker, quit 9 months ago, presenting to the ED with shortness of breath which is been worsening of the past 3 days. He states it became very bad last evening, and despite having his albuterol treatments and his DuoNeb times, he continues to worsen. He endorses a cough without production. He endorses chest pain associated with cough, however denies chest pain otherwise. Denies any radiation of this chest pain including down the arm or up into the jaw. Symptoms are not worse with exertion. He has needed to be admitted for CP and SOB in the past. No modifying factors. Patient unable to speak full sentences on arrival. Family hx includes: HTN, [place] Social hx: recent quit smoker Surg hx: stent placements - History of Current Complaint Chief Complaint: EDRespiratoryDistress Stated Complaint: SHORT OF BREATH Time Seen by Provider: 12/30/18 09:49 Hx Obtained From: Patient Onset/Duration: Started Hours Ago Timing: Constant Initial Severity: Moderate Current Severity: Moderate Pain Intensity: 0 Pain Scale Used: 0-10 Numeric Chest Pain Radiates: No Aggravating Factor(s): Nothing Alleviating Factor(s): Nothing Associated Signs and Symptoms: Positive: Chest Pain, Shortness of Breath, Nonproductive Cough, URI. Negative: Diaphoresis, Nausea, Palpitations, Hemoptysis - Risk Factors Pulmonary Embolism Risk Factors: Negative Cardiac Risk Factors: Hypertension, Smoking - quit 9 mos ago, Family History, Prior [place] Atrial Fibrillation Risk Factors: Hypertension TAD Risk Factors: Hypertension AMI/ACS Risk Factors: Myocardial Infarction, Hypertension, Smoking Pseudomonas Risk Factors: Chronic Lung Disease Tuberculosis Risk Factors: Corticosteroid Use - Additional Pertinent History Primary Care Physician: [id number] - Allergy/Home Medications Allergies/Adverse Reactions: Allergies Allergy/AdvReac Type Severity Reaction Status Date / Time No Known Allergies Allergy Verified 11/19/18 13:43 Home Medications: Home Medications Albuterol 2.5MG/3ML (0.083%)* [Ventolin 2.5 MG/3 ML NEB.MARCO*] 2.5 mg INH Q4H PRN 12/30/18 [History Confirmed 12/30/18] Budesonide/Formote 160/4.5(NF) [Symbicort 160/4.5 (NF)] 1 puff INH BID 12/30/18 [History Confirmed 12/30/18] PMH/Surg Hx/FS Hx/Imm Hx Previously Healthy: Yes Endocrine/Hematology History: Denies: Hx Diabetes Cardiovascular History: Reports: Hx Coronary Artery Disease, Hx Hypercholesterolemia, Hx Hypertension, Hx Myocardial Infarction - x2 Respiratory History: Reports: Hx Asthma, Hx Chronic Obstructive Pulmonary Disease (COPD) Sensory History: Denies: Hx Contacts or Glasses, Hx Hearing Aid Opthamlomology History: Denies: Hx Contacts or Glasses - Surgical History Surgery Procedure, Year, and Place: stent, hernia operation Infectious Disease History: No Infectious Disease History: Denies: Traveled Outside the [place] in Last 30 Days - Family History Known Family History: Positive: Cardiac Disease, Other - cancer Negative: Diabetes - Social History Occupation: Unemployed Lives: With Family Alcohol Use: None Hx Substance Use: No Substance Use Type: Reports: None Hx Tobacco Use: Yes Smoking Status (MU): Former Smoker Review of Systems Negative: Fever, Chills, Fatigue, Skin Diaphoresis Positive: Chest Pain Positive: Shortness Of Breath, Cough Negative: Abdominal Pain, Vomiting, Diarrhea Genitourinary: Negative Positive: no symptoms reported, see HPI Negative: Arthralgia, Myalgia Neurological: Negative All Other Systems Reviewed And Are Negative: Yes Physical Exam Triage Information Reviewed: Yes Vital Signs On Initial Exam: Initial Vitals Temp Pulse Resp BP Pulse Ox 98.6 F 87 32 180/80 98 12/30/18 09:47 12/30/18 09:47 12/30/18 09:47 12/30/18 09:47 12/30/18 09:47 Vital Signs Reviewed: Yes Appearance: Positive: Ill-Appearing Skin: Positive: Warm, Skin Color Reflects Adequate Perfusion Head/Face: Positive: Normal Head/Face Inspection Eyes: Positive: EOMI, Conjunctiva Clear Neck: Positive: Supple, No Lymphadenopathy Respiratory/Lung Sounds: Positive: Breath Sounds Present, Wheezes, Unable to speak in full sentences, Fatigue Cardiovascular: Positive: RRR, Pulses are Symmetrical in both Upper and Lower Extremities Neurological: Positive: Normal, Sensory/Motor Intact, Alert, Oriented to Person Place, Time Psychiatric: Positive: Normal, Affect/Mood Appropriate AVPU Assessment: Alert Procedures - Sedation Patient Received Moderate/Deep Sedation with Procedure: No Diagnostics - Vital Signs Vital Signs Temp Pulse Resp BP Pulse Ox 12/30/18 11:07 70 14 144/77 97 12/30/18 11:00 74 11 97 12/30/18 10:55 81 20 175/78 96 12/30/18 10:09 69 20 99 12/30/18 10:08 79 165/88 99 12/30/18 10:07 73 98 12/30/18 09:47 98.6 F 87 32 180/80 98 - Laboratory Lab Results: Lab Results 12/30/18 12/30/18 12/30/18 Range/Units 10:05 10:05 10:05 WBC 9.4 (3.5-10.8) 10^3/uL RBC 4.35 (4.18-5.48) 10^6 /uL Hgb 13.7 L (14.0-18.0) g/dL Hct 41 L (42-52) % MCV 94 (80-94) fL MCH 31 (27-31) pg MCHC 33 (31-36) g/dL RDW 14 (10-15) % Plt Count 287 (150-450) 10^3/uL MPV 7.0 L (7.4-10.4) fL Neut % (Auto) 53.4 % Lymph % (Auto) 24.6 % Webb % (Auto) 10.6 % Eos % (Auto) 10.3 % Baso % (Auto) 1.1 % Absolute Neuts (auto) 5.0 (1.5-7.7) 10^3/ul Absolute Lymphs (auto) 2.3 (1.0-4.8) 10^3/ul Absolute Monos (auto) 1.0 H (0-0.8) 10^3/ul Absolute Eos (auto) 1.0 H (0-0.6) 10^3/ul Absolute Basos (auto) 0.1 (0-0.2) 10^3/ul Absolute Nucleated RBC 0.0 10^3/ul Nucleated RBC % 0.0 INR (Anticoag Therapy) 0.99 (0.82-1.09) Sodium 141 (135-145) mmol/L Potassium 4.2 (3.5-5.0) mmol/L Chloride 106 (101-111) mmol/L Carbon Dioxide 24 (22-32) mmol/L Anion Gap 11 (2-11) mmol/L BUN 20 (6-24) mg/dL Creatinine 1.39 H (0.67-1.17) mg/dL Est GFR ( Amer) 62.7 (>60) Est GFR (Non-Af Amer) 51.8 (>60) BUN/Creatinine Ratio 14.4 (8-20) Glucose 103 H (70-100) mg/dL Lactic Acid (0.5-2.0) mmol/L Calcium 9.2 (8.6-10.3) mg/dL Total Bilirubin 0.40 (0.2-1.0) mg/dL AST 19 (13-39) U/L ALT 20 (7-52) U/L Alkaline Phosphatase 70 (34-104) U/L Troponin I 0.04 H* (<0.04) ng/mL C-Reactive Protein 3.40 (<8.01) mg/L B-Natriuretic Peptide (<=100) pg/mL Total Protein 6.6 (6.4-8.9) g/dL Albumin 4.0 (3.2-5.2) g/dL Globulin 2.6 (2-4) g/dL Albumin/Globulin Ratio 1.5 (1-3) 12/30/18 12/30/18 Range/Units 10:05 10:05 WBC (3.5-10.8) 10^3/uL RBC (4.18-5.48) 10^6 /uL Hgb (14.0-18.0) g/dL Hct (42-52) % MCV (80-94) fL MCH (27-31) pg MCHC (31-36) g/dL RDW (10-15) % Plt Count (150-450) 10^3/uL MPV (7.4-10.4) fL Neut % (Auto) % Lymph % (Auto) % Webb % (Auto) % Eos % (Auto) % Baso % (Auto) % Absolute Neuts (auto) (1.5-7.7) 10^3/ul Absolute Lymphs (auto) (1.0-4.8) 10^3/ul Absolute Monos (auto) (0-0.8) 10^3/ul Absolute Eos (auto) (0-0.6) 10^3/ul Absolute Basos (auto) (0-0.2) 10^3/ul Absolute Nucleated RBC 10^3/ul Nucleated RBC % INR (Anticoag Therapy) (0.82-1.09) Sodium (135-145) mmol/L Potassium (3.5-5.0) mmol/L Chloride (101-111) mmol/L Carbon Dioxide (22-32) mmol/L Anion Gap (2-11) mmol/L BUN (6-24) mg/dL Creatinine (0.67-1.17) mg/dL Est GFR ( Amer) (>60) Est GFR (Non-Af Amer) (>60) BUN/Creatinine Ratio (8-20) Glucose (70-100) mg/dL Lactic Acid 1.1 (0.5-2.0) mmol/L Calcium (8.6-10.3) mg/dL Total Bilirubin (0.2-1.0) mg/dL AST (13-39) U/L ALT (7-52) U/L Alkaline Phosphatase (34-104) U/L Troponin I (<0.04) ng/mL C-Reactive Protein (<8.01) mg/L B-Natriuretic Peptide 35 (<=100) pg/mL Total Protein (6.4-8.9) g/dL Albumin (3.2-5.2) g/dL Globulin (2-4) g/dL Albumin/Globulin Ratio (1-3) Result Diagrams: 12/30/18 10:05 12/30/18 10:05 Lab Statement: Any lab studies that have been ordered have been reviewed, and results considered in the medical decision making process. Disposition - Course Course Of Treatment: Patient is evaluated for shortness of breath. On arrival into the ED, he has audible wheezing, is tachypnic and appears to be in respiratory distress. Duo neb given on arrival. Placed on 3L O2. Mag 2mg IV, methylprednisolone 125mg and fluids given. CXR shows COPD and hyperinflation with no evidence of PNA. Trop 0.00. Flu negative. MRSA swab sent and pending. Over the course of 2 hours, he was titrated down to 1L and sat at 94% . He was given another duo neb as he continues to feel SOB. Denies CP at this time. Physical exam reveals crackles in the bilateral lung bases with wheezing throughout. Discussed with Dr. Lezama and Dr. Carey. Pt will be admitted for COPD exacerbation. HEART SCORE = 6. MODERATE RISK. - Differential Dx - Cardiopulmonary Differential Diagnoses - Cardiopulmonary: Acute Dyspnea, Bronchitis, Exacerbation Of COPD - Diagnoses Provider Diagnoses: Asthma, HTN (hypertension), Chest pain, Shortness of breath - Physician Notifications Discussed Care Of Patient With: Kenny Carey Instructed by Provider To: Admit As Inpatient - Critical Care Time Critical Care Time: 30-74 min Discharge ED - Sign-Out/Discharge Documenting (check all that apply): Patient Departure - Discharge Plan Condition: Fair Disposition: ADMITTED TO [facility] Referrals: Nida Rai DO [Primary Care Provider] - - Billing Disposition and Condition Condition: FAIR Disposition: Admitted to [facility]
[2018-12-30] MEDS ORDERED: Ondansetron INJ* 2 MG/ML VIAL IV PRN (12:32)
[2018-12-30 12:35] LABS: Influenza A Molecular NEGATIVE (Negative); Influenza B Molecular NEGATIVE (Negative)
[2018-12-30] MEDS ORDERED: Albuterol HFA INHALER* 8 gm MDI INH PRN (12:41)
[2018-12-30] MEDS: Albuterol 2.5 MG/3 ML NEB.SOL* (0.083%) INH SCH ×6 (13:06→23:12)
--- NOTE | 2018-12-30 15:20 | HP ---
MEDICINE HISTORY AND PHYSICAL: DATE OF ADMISSION: 12/30/18 PROVIDER: Shelly Joyce NP. ATTENDING PHYSICIAN: Dr. Kenny Carey * (dictated by Shelly Joyce NP) . PRIMARY CARE PROVIDER: Nida Rai DO. CHIEF COMPLAINT: Shortness of breath. HISTORY OF PRESENT ILLNESS: Mr. Alcantar is a 63-year-old male patient presenting to the ER today at recommendation of his daughter for evaluation of shortness of breath. He states the symptoms started approximately 3 days ago and that he has been utilizing his inhaler up to 7 to 8 times a day at least. He has coughing. He has sinus congestion. He reports chest tightness across his sternum, but denies any radiating pain to his neck, jaw, back, also denying any diaphoresis, body aches, vomiting or sick contacts. He does not have difficulty lying flat. He recently moved here from [place] earlier in the fall, and was admitted to [facility] from 11/12/18 to 11/14/18 for chest pain. At that time, he had a FERMIN score of 3 and was admitted for a stress test which he refused. He was established with a primary care provider upon discharge and did see Nida Rai DO, on 11/22/18 per the admitted notes. At that time, he presented to the office with complaint of shortness of breath. She had noted that he was recently treated in the ER with prednisone and Levaquin. Following that visit, he was started on Symbicort and ordered to follow up PFT' s once his respiratory infection cleared as well as stress echo and a CT chest. These tests have not yet been performed and he has not had his Symbicort as there was difficulty obtaining it from the pharmacy, likely due to insurance issues. Here in the ER, he was evaluated. His chest x-ray report impression reads stigmata of chronic lung disease with hyperinflation but no active cardiopulmonary disease. His EKG did not show any ST or T-wave changes to suggest ischemia but did show left ventricular hypertrophy. His labs were drawn and he had concern for slightly elevated creatinine of 1.39. CRP was 3.4. He had negative flu swab. D-dimer less than 200, and troponin was initially 0.04 but upon repeat check was noted to be 0.00; however, given the patient's respiratory presentation, the extent of his wheezing and discomfort, hospital nursing was consulted for admission. PAST MEDICAL HISTORY: Includes: 1. Coronary artery disease, he reports 2 episodes of VA with a stent that was placed in 2019. 2. Hypercholesterolemia. 3. Hypertension. 4. Asthma with no formal diagnosis of COPD. HOME MEDICATIONS: 1. Aspirin 81 mg. 2. Lisinopril 5 mg. 3. Metoprolol tartrate 12.5 mg b.i.d. 4. ProAir 1 puff inhaled q.6 hours p.r.n. 5. Albuterol nebulizer 2.5 mg inhaled q.4 hours p.r.n. 6. Symbicort 160/4.5 mcg 1 puff inhaled b.i.d. ALLERGIES: No known drug allergies. FAMILY HISTORY: His mother of coronary artery disease. His father of old age. SOCIAL HISTORY: He reports he is a former smoker. He has been abstaining from cigarettes for approximately 9 months. He is a former one pack per day smoker for approximately 40 years. He denies any alcohol use stating that he stopped this greater than 30 years ago. Denies any illicit drug use. He lives with his daughter. He is not currently working. His daughter, Karin Bowman, is his surrogate decision maker in the event of emergency. REVIEW OF SYSTEMS: A 12-point review of systems was completed, all pertinent positives and negatives as per the HPI. PHYSICAL EXAMINATION VITAL SIGNS: Temperature 98.6, heart rate 85, respiratory rate 20, blood pressure 163/88, and O2 saturation is 95% on room air. HEENT: Head is atraumatic, normocephalic. Face is symmetrical. Pupils are equal, round, and reactive to light and accommodation. Extraocular movements are intact. There is evidence of arcus senilis. Tympanic membranes are pearly morse and intact. Oral mucosa is moist. There is no oropharyngeal erythema or exudate. NECK: Supple. No JVD noted. Full range of motion is present. There is no submandibular, cervical or supraclavicular adenopathy. CHEST: Tender to palpation across the sternum. Lungs with expiratory wheezing noted in the upper and lower lobes, there are bibasilar crackles noted on expiration. CARDIAC: Normal S1, S2 heart sounds. Regular rate and rhythm. No murmurs appreciated. No peripheral edema noted. ABDOMEN: Bowel sounds are present. Abdomen is soft, nontender, nondistended. There is no guarding or rebound tenderness. MUSCULOSKELETAL: There is no clubbing or cyanosis of the digits. There is full active range of motion of all 4 extremities. SKIN: Warm and dry, appears grossly intact. NEURO: Cranial nerves II through XII are grossly intact. Sensation is intact to light touch throughout. [employer] and strength are 5/5 and symmetrical in both upper and lower extremities bilaterally. He is alert and oriented x3. LABORATORY DATA AND DIAGNOSTIC STUDIES: CBC: WBC 9.4, hemoglobin 13.7, hematocrit 41, platelet count 287. INR 0.99, D-dimer less than 200. CMP: Sodium 121, potassium 4.2, chloride 106, carbon dioxide 24, BUN 20, creatinine 1.39, glucose 103, lactic acid 1.1, calcium 9.2. Total bilirubin 0.4, AST 19, ALT 20, alk phos 70. Troponin 0.00. CRP 3.40. BNP 35. Albumin 4.0. Rapid influenza is negative for flu A and flu B. EKG, chest x-ray as per above. ASSESSMENT AND PLAN: This is a 63-year-old male with a history of coronary artery disease, hypertension, previous tobacco use, hypercholesterolemia, asthma , who presents to the ER today with concern for shortness of breath, likely secondary to chronic lung disease exacerbation. He will be admitted under observation. Plan as follows: 1. Suspected chronic obstructive pulmonary disease exacerbation. Mr. Alcantar has not had formal PFT's that I can see on records but given his x-ray finding and presentation, he presents as a patient with COPD with likely exacerbation. He is afebrile. There is no leukocytosis. CXR was reviewed by myself and Dr. Carey; there is an area in the RML that is not present on XR from last month that is suspicious for developing infiltrate. Plan to start azithromycin and ceftriaxone for community acquired pneumonia. We will support him with steroids, nebulizer treatments and monitor him closely with the use of p.r.n. oxygen as appropriate. He is ordered a respiratory protocol. He is ordered scheduled nebulizer treatments at this time and he will be started on prednisone 60 mg tomorrow as he has already received methylprednisolone 125 mg IV here in the ER. We will restart him on his Symbicort and ensure that he has his medication or a comfortable ICS/LABA inhaler upon discharge. 2. Elevated troponin, this has been corrected from 0.04 to 0.00. We will follow this but he is currently without chest pain. Chest pain is reproducible across the chest and appears to be secondary to costochondritis from the patient 's coughing. D-dimer is negative. Continue supportive care. 3. Coronary artery disease. Continue home metoprolol, aspirin and we will monitor him on telemetry. 4. Hypertension. Blood pressure is mildly hypertensive at this time. We will continue to follow. He is on lisinopril, metoprolol tartrate which we will continue. We will order p.r.n. hydralazine and we will check to make sure that he took his appropriate doses this morning before coming into the ER. 5. FEN. He is ordered a heart healthy diet. 6. DVT prophylaxis. He is ordered a subcu heparin. 7. Code status. He is a full code. TIME SPENT: Approximately 60 minutes was spent on this admission with more than half that time spent [id number] with the patient, obtaining history and physical, performing physical examination, and reviewing the plan of care. Plan of care was also reviewed with my attending Dr. Carey who is in agreement. SHELLY JOYCE NP [id number]/CPS #: [id number] MTDD
[2018-12-30] MEDS ORDERED: guaiFENesin 100 mg/5 ml LIQ unit dose cup PO PRN (16:20)
[2018-12-30] MEDS: Acetaminophen TAB* 325 MG PO PRN ×2 (17:24→21:44)
[2018-12-30] MEDS: Heparin VIAL(*) 5000 UNITS/ML VIAL (FIVE THOUSAND) SUBCUT SCH ×2 (17:24→21:44)
[2018-12-30] MEDS ORDERED: Azithromycin 500 mg/250 ml NS 500 MG/250 ML BAG IVPB ONE (17:53)
[2018-12-30] MEDS ORDERED: hydrALAZINE IV* 20 MG/ML VIAL IV SLOW PU PRN (18:01)
[2018-12-30] MEDS: cefTRIAXone(*) 1 GM in NS 0.9% 50 ML* 50 ML IVPB SCH (19:15)
[2018-12-30] MEDS: Mometasone/Formoter 200/5 MDI INH SCH (19:27)
[2018-12-30] MEDS: Metoprolol Tartrate TAB* 25 MG PO SCH (20:03)
[2018-12-30] MEDS: guaiFENesin ER TAB 600 MG PO SCH (20:03)
[2018-12-30] MEDS: Benzonatate CAP* 100 MG PO PRN (21:44)
[2018-12-31] MEDS ORDERED: hydrALAZINE IV* 20 MG/ML VIAL IV SLOW PU PRN (00:02)
[2018-12-31] MEDS ORDERED: Labetalol IV* 5 MG/ML 20 ML VIAL IV PUSH PRN (01:23)
[2018-12-31] MEDS: Albuterol 2.5 MG/3 ML NEB.SOL* (0.083%) INH SCH ×6 (02:48→23:24)
[2018-12-31] MEDS: Heparin VIAL(*) 5000 UNITS/ML VIAL (FIVE THOUSAND) SUBCUT SCH ×3 (05:29→21:46)
[2018-12-31 05:59] LABS: ABS Basophils 0.1 10^3/ul (0-0.2); ABS Lymphocytes 1.9 10^3/ul (1.0-4.8); ABS Monocytes 1.1 10^3/ul (0-0.8); ABS Neutrophils 11.2 10^3/ul (1.5-7.7); Eosinophil % 0.1 %; Hematocrit 41 % (42-52); Hemoglobin 13.8 g/dL (14.0-18.0); Lymphocyte % 13.2 %; Mean Corpuscular HGB Conc 33 g/dL (31-36); Mean Corpuscular Hemoglobin 31 pg (27-31); Mean Corpuscular Volume 93 fL (80-94); Mean Platelet Volume 7.3 fL (7.4-10.4); Platelet Count 306 10^3/uL (150-450); Red Blood Count 4.43 10^6 /uL (4.18-5.48); Red Cell Distribution Width 15 % (10-15); White Blood Count 14.3 10^3/uL (3.5-10.8)
[2018-12-31 06:23] LABS: BUN/Creatinine Ratio 16.5 (8-20); Calcium 9.2 mg/dL (8.6-10.3); EGFR Non-African American 64.4 (>60); Potassium 4.4 mmol/L (3.5-5.0)
[2018-12-31] MEDS: Mometasone/Formoter 200/5 MDI INH SCH ×2 (07:22→19:52)
[2018-12-31] MEDS ORDERED: Lisinopril TAB* 5 MG PO SCH (09:00)
[2018-12-31] MEDS: Metoprolol Tartrate TAB* 25 MG PO SCH ×2 (09:12→20:16)
[2018-12-31] MEDS: guaiFENesin ER TAB 600 MG PO SCH ×2 (09:12→20:24)
[2018-12-31] MEDS: predniSONE TAB* 20 MG PO SCH (09:13)
[2018-12-31] MEDS: Aspirin 81 mg CHEW TAB* 81 MG TAB.CHEW PO SCH (09:13)
--- NOTE | 2018-12-31 14:43 | PN ---
Subjective Date of Service: 12/31/18 Interval History: Mr. Alcantar is feeling better this morning. He had a difficult night - he had received labetalol for elevated BP and while walking back from the bathroom became very SOB (bronchospasm?). Breathing is much improved this morning. Still on oxygen. Denies CP, N/V. No concerns from nursing. Family History: Unchanged from Admission Social History: Unchanged from Admission Past Medical History: Unchanged from Admission Objective Active Medications: Acetaminophen (Tylenol Tab*) 650 mg PO Q4H PRN MILD PAIN or TEMP > 100.4 Albuterol (Ventolin 2.5 Mg/3 Ml Neb.Sherrill*) 2.5 mg INH [id number] AWAKE [facility] Albuterol (Ventolin Hfa Inhaler*) 1 puff INH Q6H PRN SOB/WHEEZING Aspirin (Aspirin 81 Mg Chew Tab*) 81 mg PO DAILY [facility] Benzonatate (Tessalon Cap*) 100 mg PO TID PRN COUGH Guaifenesin (Mucinex*) 1,200 mg PO BID MARTIN Guaifenesin (Robitussin*) 5 ml PO Q4H PRN COUGH Heparin Sodium (Porcine) (Heparin Vial(*)) 5,000 units SUBCUT Q8HR [facility] Hydralazine HCl (Apresoline Iv*) 5 mg IV SLOW PU Q6H PRN BLOOD PRESSURE Azithromycin 250 mg/ Sodium (Chloride) 250 mls @ 250 mls/hr IVPB Q24H MARTIN Ceftriaxone Sodium 1 gm/ (Sodium Chloride) 50 mls @ 100 mls/hr IVPB Q24H [facility] Lisinopril (Prinivil Tab*) 5 mg PO DAILY [facility] Metoprolol Tartrate (Lopressor Tab*) 12.5 mg PO Q12HR [facility] Mometasone Furoate/Formoterol Fumar (Dulera 200/5 Mdi*) 1 puff INH BID MARTIN; Protocol Ondansetron HCl (Zofran Inj*) 4 mg IV Q6H PRN NAUSEA/VOMITING Prednisone (Deltasone Tab*) 60 mg PO DAILY [facility] Vital Signs - 8 hr 12/31/18 12/31/18 12/31/18 07:15 07:26 11:15 Temperature 97.1 F 97.7 F Pulse Rate 87 104 79 Respiratory 18 17 20 Rate Blood Pressure 135/61 155/68 (mmHg) O2 Sat by Pulse 97 98 95 Oximetry 12/31/18 11:18 Temperature Pulse Rate 99 Respiratory 17 Rate Blood Pressure (mmHg) O2 Sat by Pulse 98 Oximetry Oxygen Devices in Use Now: Nasal Cannula - 3L Appearance: Middle-aged male lying in bed in NAD Ears/Nose/Mouth/Throat: Mucous Membranes Moist Neck: NL Appearance and Movements; NL JVP, Trachea Midline Respiratory: Symmetrical Chest Expansion and Respiratory Effort, - - Expiratory wheezing throughout Cardiovascular: NL Sounds; No Murmurs; No JVD, RRR Abdominal: NL Sounds; No Tenderness; No Distention Extremities: No Edema Neurological: Alert and Oriented x 3 Lines/Tubes/Other Access: Clean, Dry and Intact Peripheral IV Nutrition: Taking PO's Result Diagrams: 12/31/18 05:33 12/31/18 05:33 Assess/Plan/Problems-Billing Assessment: Mr. Alcantar is a 63 yo M with PMH of CAD s/p stenting, HTN, HLD, asthma; who presented to the ED with c/o SOB and was admitted for COPD exacerbation. - Patient Problems (1) COPD exacerbation Code(s): J44.1 - CHRONIC OBSTRUCTIVE PULMONARY DISEASE W (ACUTE) EXACERBATION Comment: - History of asthma, but no formal diagnosis of COPD; diagnosis of COPD is supported by significant smoking history and emphysematous changes on imaging - SOB generally improved today, but had likely bronchospasm overnight after receiving labetalol - CT chest today LLL infiltrate (likely atelectasis), R apical densities ( likely scarring), and mild emphysematous change - Continue ceftriaxone, azithromycin, nebs, Dulera, prednisone (2) Acute respiratory failure with hypoxia Code(s): J96.01 - ACUTE RESPIRATORY FAILURE WITH HYPOXIA Comment: - Requiring 8L on admission, now down to 3L - Wean oxygen - Continue prednisone (3) SAROJ (acute kidney injury) Code(s): N17.9 - ACUTE KIDNEY FAILURE, UNSPECIFIED Comment: - Present on admission, now resolved - Suspect hypovolemia (4) HTN (hypertension) Code(s): I10 - ESSENTIAL (PRIMARY) HYPERTENSION Comment: - Remains slightly hypertensive - Continue metoprolol; increase lisinopril to 10mg (5) CAD (coronary artery disease) Code(s): I25.10 - ATHSCL HEART DISEASE OF [place] CORONARY ARTERY W/O ANG PCTRS Comment: - Continue aspirin, metoprolol (6) DVT prophylaxis Code(s): Z29.9 - ENCOUNTER FOR PROPHYLACTIC MEASURES, UNSPECIFIED Comment: - Heparin SQ (7) Full code status Code(s): Z78.9 - OTHER SPECIFIED HEALTH STATUS Comment: Status and Disposition: Observation. Anticipate d/c home when medically stable, hopefully tomorrow. Attending: Patt Bailey
[2018-12-31] MEDS ORDERED: Lisinopril TAB* 5 MG PO ONE (14:52)
[2018-12-31] MEDS: cefTRIAXone(*) 1 GM in NS 0.9% 50 ML* 50 ML IVPB SCH (17:34)
[2018-12-31] MEDS ORDERED: Azithromycin IV(*) 250 MG in NS 0.9% 250 ML* 250 ML IVPB SCH (18:00)
[2018-12-31] MEDS: Benzonatate CAP* 100 MG PO PRN (20:16)
[2019-01-01] MEDS: Albuterol 2.5 MG/3 ML NEB.SOL* (0.083%) INH SCH ×3 (04:10→12:21)
[2019-01-01] MEDS: Heparin VIAL(*) 5000 UNITS/ML VIAL (FIVE THOUSAND) SUBCUT SCH ×2 (05:17→13:25)
[2019-01-01] MEDS: Mometasone/Formoter 200/5 MDI INH SCH (07:20)
[2019-01-01] MEDS: Aspirin 81 mg CHEW TAB* 81 MG TAB.CHEW PO SCH (08:53)
[2019-01-01] MEDS: guaiFENesin ER TAB 600 MG PO SCH (08:54)
[2019-01-01] MEDS: predniSONE TAB* 20 MG PO SCH (08:54)
[2019-01-01] MEDS: Metoprolol Tartrate TAB* 25 MG PO SCH (08:55)
[2019-01-01] MEDS ORDERED: Lisinopril TAB* 5 MG PO SCH (09:00)
[2019-01-01] MEDS ORDERED: Pneumococcal *Vac Polyvalent 0.5 ML VIAL IM ONE (09:00)
[2019-01-01] MEDS ORDERED: Azithromycin IV* 250 MG in NS 0.9% 250 ML* 250 ML IVPB ONE (12:30)
[2019-01-01 15:23] VITALS: BP 144/86
--- NOTE | 2019-01-01 19:45 | DS ---
CC: Dr. Nida Rai * DISCHARGE SUMMARY: DATE OF ADMISSION: 12/30/18 DATE OF DISCHARGE: 01/01/19 PRIMARY CARE PROVIDER: Dr. Nida Rai. ATTENDING PHYSICIAN: Dr. Patt Bailey.* (DICTATED BY NEVILLE ESTRADA NP) PRIMARY DIAGNOSES: 1. Chronic obstructive pulmonary disease exacerbation. 2. Acute hypoxic respiratory failure. 3. Acute kidney injury. SECONDARY DIAGNOSES: 1. Hypertension. 2. Coronary artery disease. STUDIES WHILE IN THE HOSPITAL: 1. Chest x-ray on 12/30/18 reads as hyperinflation consistent with COPD. No active cardiopulmonary disease. 2. EKG on 12/30/18 shows normal sinus rhythm with a rate of 73. No ST changes , QTc 439. 3. Chest CT on 12/31/18 reads as small left lower lobe infiltrate suggestive of atelectasis, less likely pneumonia. Right atypical pleural parenchymal densities likely representing scarring. Recommend a followup noncontrast CT of the chest in 6 months' time to demonstrate stability. Mild emphysematous change. Mild ectasia of the ascending thoracic aorta. HISTORY OF PRESENT ILLNESS AND HOSPITAL COURSE: Mr. Alcantar is a 63-year-old male with past medical history of coronary artery disease with recent stent placement, hyperlipidemia, hypertension, and asthma who presented to the emergency room on 12/30/18 with complaints of shortness of breath. Please see the history and physical by Ada Adams NP, for complete summary of the events leading up to this hospitalization. In short, the patient reported symptoms for 3 days requiring his rescue inhaler at least 8 times a day. The patient had recently been started on Symbicort and was ordered outpatient pulmonary function testing, which she had not yet completed. He also admitted that he had not been taking his Symbicort in the emergency room. The patient had imaging as noted above. He had labs revealing mild acute kidney injury. On exam, he was noted to have significant wheezing. He was admitted by the hospitalist service. The patient was started on azithromycin and ceftriaxone due to the concern for community acquired pneumonia, though there was no evidence of pneumonia on chest x- ray. He was given a dose of Solu-Medrol in the emergency room and continued on prednisone after admission. He was requiring 3 L of oxygen. On the night of 12/31/18, the patient was noted to have elevated blood pressures in the 190s/110s and so he was given a dose of labetalol. Based on his report, it sounds as though the patient may have suffered from bronchospasm after receiving the labetalol, and at that point he was requiring up to 8 L of oxygen. On the following day, I did obtain a chest CT because of concern for pneumonia. There is evidence of an infiltrate, which the radiologist felt was more likely atelectasis, though due to his respiratory status the decision was made to maintain him on antibiotics for coverage of community-acquired pneumonia. Acute kidney injury resolved. I should note that the patient does have a history of asthma, though no official history of COPD. The diagnosis of COPD is supported by a long smoking history and changes on imaging. He was still requiring oxygen yesterday, so he was kept another night in the hospital. This morning the patient reports feeling better. He is still short of breath with exertion, but is able to get up and ambulate independently to the bathroom. The nurse did walk with him and the patient was able to maintain saturations in the high 90s on room air while ambulating. I did speak with the patient and it sounds as though he was not taking most of his prescribed medications at home, except for his albuterol inhaler. He does admit that he was not taking his antihypertensives or the Symbicort and he states it is because he did not have prescriptions for these medications, though he is willing to take them if provided with prescription. On exam, he is alert and oriented x4. He has no focal neurological deficits. Heart has a regular rate and rhythm with no murmurs, rubs, or gallops. Lungs have expiratory wheezing throughout, though certainly improved from yesterday. There are no rhonchi or rubs. There is no edema. Physical exam is otherwise benign Mr. Alcantar is stable for discharge today. Vital signs are as follows: Temp 97.9, heart rate 89, respiratory rate 20, oxygen saturation 96% on room air, blood pressure 144/86. DISCHARGE MEDICATIONS: New Medications: 1. Azithromycin 250 mg p.o. daily x3 days. 2. Cefdinir 300 mg p.o. b.i.d. x3 days. 3. Prednisone p.o. taper daily (40 mg for 2 days, then 30 mg for 2 days, then 20 mg for 2 days, then 10 mg for 2 days). Changed Medications: 1. Lisinopril 10 mg p.o. daily (previously was 5 mg daily). Continued Medications: 1. Albuterol MDI one puff q.6 hours p.r.n. for shortness of breath and wheezing. 2. Aspirin 81 mg p.o. daily. 3. Albuterol nebulizer 2.5 mg inhalation q.4 hours p.r.n. for shortness of breath and wheezing. 4. Symbicort 160/4.5 one puff b.i.d. 5. Metoprolol titrate 12.5 mg p.o. b.i.d. DISCHARGE PLAN: Mr. Alcantar will be discharged home. Activity: As tolerated. Diet: Heart healthy. Medications: Noted above. The patient has been prescribed 3 days of azithromycin and cefdinir to complete a total of 5 days of antibiotics, which will cover a possible community acquired pneumonia and COPD exacerbation. I have prescribed a short prednisone taper, which I have instructed him on. Lisinopril dosing has been increased due to hypertension while here in the hospital. The patient has shown good response to the increased dose. I did additionally send in refills for the patient's Symbicort and metoprolol as he said he did not have these medications. He can continue his other usual medications as noted above. I have stressed the importance of medication compliance with the patient and I stressed that noncompliance with medication will likely result in repeat illnesses and hospital readmissions. FOLLOWUP: The patient will need to follow up with his primary care provider in the next 4 to 7 days. As noted above, he will additionally need a followup CT of the chest in 6 months to demonstrate stability of the right apical densities. He has been advised to return to the emergency room or nearest hospital for any worsening of symptoms, shortness of breath, lightheadedness, dizziness, chest discomfort, high fevers, chills, night sweats, loss of consciousness, or any other worrisome signs or symptoms. DISCHARGE CONDITION: Stable. DISCHARGE DISPOSITION: Home. This is a summarized report of a complex medical history and hospital stay. For further details, please see the entire medical record. TIME SPENT: Approximately 45 minutes were spent on this discharge. NEVILLE NATALIE, WIREWORKER [id number]/[facility] #: [id number] IRMA
== END 2019-01-01 15:45 | disposition home or self-care (01) ==
LOC: ED 09:46 → MEDTELE 12:32
PROVIDERS: ADMIT Internal Medicine; ATTEND Internal Medicine
DX: J44.1 Chronic obstructive pulmonary disease with (acute) exacerbation (principal); J96.01 Acute respiratory failure with hypoxia; N17.9 Acute kidney failure, unspecified; I10 Essential (primary) hypertension; I25.10 Atherosclerotic heart disease of native coronary artery without angina pectoris; Z79.82 Long term (current) use of aspirin; Z79.899 Other long term (current) drug therapy; R94.31 Abnormal electrocardiogram [ECG] [EKG]; J45.909 Unspecified asthma, uncomplicated; Z87.891 Personal history of nicotine dependence; R79.89 Other specified abnormal findings of blood chemistry
CPT/HCPCS: 36415; 36600; 71046; 71250; 80048; 80053; 82803; 83605; 83880; 84484; 85025; 85379; 85610; 86140; 87070; 87205; 87641; 90732; 93005; 94640; 96365; 96366; 96367; 96375; 99284; A9270-GY; G0378; J0360; J0456; J0696; J1644; J2930; J3475; J7512

== ENCOUNTER 2019-06-08 08:52 | Inpatient (IN) | payer OTHER ==
--- OUTSIDE RECORDS SUMMARY | 2019-06-08 09:12 | XMS REPORT | Continuity of Care Document ---
:1955 External Reference #:[id number] Author Name Pia Mendoza Care Team Providers Name Role Phone Nida Rai DO - Hospitalist Care Team Information Design Engineering Technician [phone] Problems Description No Information Available Social History Type Date Description Comments Sex Unknown ETOH Use Denies alcohol use Tobacco Use Start: Unknown End: Patient is a former smoker pt quit in May 2018 Unknown Smoking Status Reviewed: 02/27/19 Patient is a former smoker pt quit in May 2018 Allergies, Adverse Reactions, Alerts Description No Known Drug Allergies Medications Active Medications SIG Qnty Indications Ordering Date Provider Furosemide 1 by mouth every 30tabs R60.0 Sharif Alicea MD 02/27/2019 20mg day for the next 5 Tablets days then call us with your weight Atorvastatin Calcium 1 by mouth every 30tabs E78.5 Sharif Alicea MD 2018 day 40mg Tablets Spiriva Respimat 2 inhalations once 8gm J44.1 Sharif Alicea MD 02/27/2019 a day 1.25mcg/Act Aerosol Nebulizer System use 4 times/day as 1units J45.998 Nida Rai, 2018 [employer] needed DO Misc Albuterol Sulfate 1 unit dose via 180ml J45.998 Nida Rai, 11/22/2018 nebulizer every 4 DO (2.5mg/3ML) 0.083% hours as needed Nebulizer Symbicort 2 puff twice a day 10.200gm J45.998 Sharif Alicea MD 11/22/2018 160-4.5mcg/Act Aerosol Aspirin Adult Low 1 by mouth every Unknown Dose day 81mg Tablets DR Lisinopril 2 by mouth every Unknown 5mg day Tablets Metoprolol Tartrate 1/2 tab by mouth 30tabs Sharif Alicea MD every day 25mg Tablets Albuterol Sulfate one puff every 6 8.500gm Sharif Alicea MD HFA hours 108(90Base) mcg/Act Aerosol Immunizations Description No Information Available Vital Signs Date Vital Result Comment 02/27/2019 3:24pm Height 71 inches 5'11" Weight 238.00 lb Heart Rate 83 /min BP Systolic 162 mmHg 143/83 BP Diastolic 85 mmHg 143/83 Body Temperature 98.0 F O2 % BldC Oximetry 93 % BMI (Body Mass Index) 33.2 kg/m2 11/22/2018 11:13am Height 71 inches 5'11" Weight 200.50 lb Heart Rate 72 /min BP Systolic 130 mmHg BP Diastolic 78 mmHg Body Temperature 98.2 F O2 % BldC Oximetry 94 % BMI (Body Mass Index) 28.0 kg/m2 Results Test Acquired Date Facility Test Result H/L Range Note Laboratory test 02/27/2019 [facility] B-Type 10 pg/mL <=[address] [place] [address] Peptide BNP [phone] Comp Metabolic 02/27/2019 [facility] Sodium 138 mmol/L Normal 135-[address] [place] [address] [phone] Potassium 4.5 mmol/L Normal 3.5-5.0 Chloride 104 mmol/L Normal 101-111 Co2 Carbon Dioxide 27 mmol/L Normal 22-32 Anion Gap 7 mmol/L Normal 2-11 Glucose 87 mg/dL Normal 70-100 Blood Urea Nitrogen 18 mg/dL Normal 6-24 Creatinine 1.24 mg/dL High 0.67-1.17 BUN/Creatinine Ratio 14.5 Normal 8-20 Calcium 9.6 mg/dL Normal 8.6-10.3 Total Protein 6.5 g/dL Normal 6.4-8.9 Albumin 4.1 g/dL Normal 3.2-5.2 Globulin 2.4 g/dL Normal 2-4 Albumin/Globulin Ratio 1.7 Normal 1-3 Total Bilirubin 0.30 mg/dL Normal 0.2-1.0 Alkaline Phosphatase 76 U/L Normal 34-104 Alt 19 U/L Normal 7-52 Ast 18 U/L Normal 13-39 Egfr Non- 59.1 >60 Egfr 71.5 >60 1 CBC Auto 02/27/2019 [facility] White Blood 7.1 10^3/uL Normal 3.5-10.[address] [place] [address] [phone] Red Blood Count 4.55 10^6/uL Normal 4.18-5.48 Hemoglobin 14.1 g/dL Normal 14.0-18.0 Hematocrit 42 % Normal 42-52 Mean Corpuscular Volume 92 fL Normal 80-94 Mean Corpuscular Hemoglobin 31 pg Normal 27-31 Mean Corpuscular HGB Conc 34 g/dL Normal 31-36 Red Cell Distribution Width 14 % Normal 10-15 Platelet Count 267 10^3/uL Normal 150-450 Mean Platelet Volume 6.9 fL Low 7.4-10.4 Abs Neutrophils 3.1 10^3/uL Normal 1.5-7.7 Abs Lymphocytes 2.5 10^3/uL Normal 1.0-4.8 Abs Monocytes 0.8 10^3/uL Normal 0-0.8 Abs Eosinophils 0.6 10^3/uL Normal 0-0.6 Abs Basophils 0.1 10^3/uL Normal 0-0.2 Abs Nucleated RBC 0.0 10^3/uL Granulocyte % 43.3 % Lymphocyte % 35.4 % Monocyte % 11.4 % Eosinophil % 9.0 % Basophil % 0.9 % Nucleated Red Blood Cells % 0.0 CBC Auto 12/30/2018 [facility] White Blood 9.4 10^3/uL Normal 3.5-10.[address] [place] [address] [phone] Red Blood Count 4.35 10^6/uL Normal 4.18-5.48 Hemoglobin 13.7 g/dL Low 14.0-18.0 Hematocrit 41 % Low 42-52 Mean Corpuscular Volume 94 fL Normal 80-94 Mean Corpuscular Hemoglobin 31 pg Normal 27-31 Mean Corpuscular HGB Conc 33 g/dL Normal 31-36 Red Cell Distribution Width 14 % Normal 10-15 Platelet Count 287 10^3/uL Normal 150-450 Mean Platelet Volume 7.0 fL Low 7.4-10.4 Abs Neutrophils 5.0 10^3/uL Normal 1.5-7.7 Abs Lymphocytes 2.3 10^3/uL Normal 1.0-4.8 Abs Monocytes 1.0 10^3/uL High 0-0.8 Abs Eosinophils 1.0 10^3/uL High 0-0.6 Abs Basophils 0.1 10^3/uL Normal 0-0.2 Abs Nucleated RBC 0.0 10^3/uL Granulocyte % 53.4 % Lymphocyte % 24.6 % Monocyte % 10.6 % Eosinophil % 10.3 % Basophil % 1.1 % Nucleated Red Blood Cells % 0.0 Inr/Protime 12/30/2018 [facility] Inr 0.99 Normal 0.82-1.[address] [place] [address] [phone] Laboratory test 12/30/2018 [facility] B-Type 35 <=[address] Natriuretic pg/[place] [address] Peptide BNP [phone] Lactic Acid 1.1 mmol/L Normal 0.5-2.0 3 Troponin-I (TnI) 0.00 ng/mL <0.04 4 Comp Metabolic 12/30/2018 [facility] Sodium 141 mmol/L Normal 135-[address] [place] [address] [phone] Potassium 4.2 mmol/L Normal 3.5-5.0 Chloride 106 mmol/L Normal 101-111 Co2 Carbon Dioxide 24 mmol/L Normal 22-32 Anion Gap 11 mmol/L Normal 2-11 Glucose 103 mg/dL High 70-100 Blood Urea Nitrogen 20 mg/dL Normal 6-24 Creatinine 1.39 mg/dL High 0.67-1.17 BUN/Creatinine Ratio 14.4 Normal 8-20 Calcium 9.2 mg/dL Normal 8.6-10.3 Total Protein 6.6 g/dL Normal 6.4-8.9 Albumin 4.0 g/dL Normal 3.2-5.2 Globulin 2.6 g/dL Normal 2-4 Albumin/Globulin Ratio 1.5 Normal 1-3 Total Bilirubin 0.40 mg/dL Normal 0.2-1.0 Alkaline Phosphatase 70 U/L Normal 34-104 Alt 20 U/L Normal 7-52 Ast 19 U/L Normal 13-39 Egfr Non- 51.8 >60 Egfr 62.7 >60 5 Laboratory test 12/30/2018 [facility] C Reactive 3.40 mg/L Normal <8.[address] [place] [address] [phone] Influenza A & B 12/30/2018 [facility] Flu AB (SEE [address] Disclaimer NOTE) [place] [address] [phone] Influenza A Molecular NEGATIVE Negative 7 Influenza B Molecular NEGATIVE Negative Laboratory 12/30/2018 [facility] D Dimer < 200 Normal Less 8 test finding [address] Quantitative ng/mL [address] [place] [address] [phone] Basic 11/30/2018 [facility] Sodium 139 Normal 135-[address] mmol/[place] [address] [phone] Potassium 4.7 mmol/L Normal 3.5-5.0 Chloride 105 mmol/L Normal 101-111 Co2 Carbon Dioxide 27 mmol/L Normal 22-32 Anion Gap 7 mmol/L Normal 2-11 Glucose 86 mg/dL Normal 70-100 Blood Urea Nitrogen 23 mg/dL Normal 6-24 Creatinine 1.06 mg/dL Normal 0.67-1.17 BUN/Creatinine Ratio 21.7 High 8-20 Calcium 9.4 mg/dL Normal 8.6-10.3 Egfr Non- 70.8 >60 Egfr 85.7 >60 9 Laboratory test 11/30/2018 [facility] Magnesium 2.1 mg/dL Normal 1.9-2.[address] [place] [address] [phone] Phosphorus 3.7 mg/dL Normal 2.5-5.0 1 Because ethnic data is not always readily available, this report includes an eGFR for both -Americans and non- Americans. The National Kidney Disease Education Program (NKDEP) does not endorse the use of the MDRD equation for patients that are not between the ages of 18 and 70, are , have extremes of body size, muscle mass, or nutritional status, or are non- or non-. According to the National Kidney Foundation, irrespective of diagnosis, the stage of the disease is based on the level of kidney function: Stage Description GFR(mL/min/1.73 m(2)) 1 Kidney damage with normal or decreased GFR 90 2 Kidney damage with mild decrease in GFR 60-89 3 Moderate decrease in GFR 30-59 4 Severe decrease in GFR 15-29 5 Kidney failure <15 (or dialysis) 2 Standard intensity warfarin therapeutic range: 2.0-3.0 High intensity warfarin therapeutic range: 2.5-3.5 3 [facility] Severe Sepsis and Septic Shock Management Bundle Measure requires all lactic acids initially measuring >2.0 mmol/L be repeated. 4 Result TnIDx:0.04 Called to [id number] at: 10:35:24 by:[email or web address] Read back by: [id number] CORRECTED REPORT --- Corrected on 12/30/18 1234 --- Troponin I previously reported as: 0.04 *C ng/mL Result TnIDx:0.04 Called to [id number] at: 10:35:24 by:[email or web address] Read back by: [id number] Troponin-I testing on Plasma Separator Tubes (PST) has a known false positive rate of 0.20-0.40%. All positive troponins reflex immediately to secondary confirmatory testing. Using the Gene[employer] DxI 800 Access Immunoassay systems, the 99th percentile upper reference limit was demonstrated to be < 0.03 ng/mL. 5 Because ethnic data is not always readily available, this report includes an eGFR for both -Americans and non- Americans. The National Kidney Disease Education Program (NKDEP) does not endorse the use of the MDRD equation for patients that are not between the ages of 18 and 70, are , have extremes of body size, muscle mass, or nutritional status, or are non- or non-. According to the National Kidney Foundation, irrespective of diagnosis, the stage of the disease is based on the level of kidney function: Stage Description GFR(mL/min/1.73 m(2)) 1 Kidney damage with normal or decreased GFR 90 2 Kidney damage with mild decrease in GFR 60-89 3 Moderate decrease in GFR 30-59 4 Severe decrease in GFR 15-29 5 Kidney failure <15 (or dialysis) 6 Suboptimal collection technique may reduce sensitivity of test. Refer to the [facility] Test Catalog for collection information: [email or web address].testcatalog.org As with all diagnostic procedures, the laboratory results obtained should be used in conjunction with other clinical information available to the physician, including confirmation by another method, as applicable. 7 Pantomimist: [id number] Please note: The following may produce a false positive D Dimer test: - Rheumatoid factor greater than 60 IU/ml - Plasma hemoglobin greater than 0.05 gm/dl - Bilirubin greater than 50 mg/dl - Lipids greater than 1000 mg/dl - FDP greater than 20 ug/ml 9 Because ethnic data is not always readily available, this report includes an eGFR for both -Americans and non- Americans. The National Kidney Disease Education Program (NKDEP) does not endorse the use of the MDRD equation for patients that are not between the ages of 18 and 70, are , have extremes of body size, muscle mass, or nutritional status, or are non- or non-. According to the National Kidney Foundation, irrespective of diagnosis, the stage of the disease is based on the level of kidney function: Stage Description GFR(mL/min/1.73 m(2)) 1 Kidney damage with normal or decreased GFR 90 2 Kidney damage with mild decrease in GFR 60-89 3 Moderate decrease in GFR 30-59 4 Severe decrease in GFR 15-29 5 Kidney failure <15 (or dialysis) Procedures Date Code Description Status 11/12/2018 [address]1995 EKG, Interpretation Only Completed Medical Devices Description No Information Available Encounters Type Date Location Provider Dx Diagnosis Office Visit 01/01/2019 [facility] Dora Lm, J44.1 Chronic obstructive 9:01a Assoc,pc OPERATOR pulmonary disease w Hospitalists (acute) exacerbation J96.01 Acute respiratory failure with hypoxia N17.9 Acute kidney failure, unspecified I10 Essential (primary) hypertension I25.10 Athscl heart disease of [place] coronary artery w/o ang pctrs Office Visit 12/30/2018 [facility] Ada J44.9 Chronic 9:00a Assoc,reddy Adams NP obstructive Hospitalists pulmonary disease, unspecified R79.89 Other specified abnormal findings of blood chemistry I25.10 Athscl heart disease of [place] coronary artery w/o ang pctrs I10 Essential (primary) hypertension Office Visit 11/22/2018 11:00a [facility] Internal Nida R07.9 Chest pain, Medicine - [address], DO unspecified R I10 Essential (primary) hypertension J45.998 Other asthma Z12.11 Encounter for screening for malignant neoplasm of colon Z12.2 Encntr screen for malignant neoplasm of respiratory organs Office Visit 11/14/2018 [facility] Hilda PryorRanStuart, R07.9 Chest pain, 9:31a Assoc,pc OPERATOR unspecified Hospitalists I10 Essential (primary) hypertension J45.909 Unspecified asthma, uncomplicated Office Visit 11/12/2018 9:30a [facility] Brii R07.9 Chest pain, Assoc,pc Gabrielle Hammonds unspecified Hospitalists I10 Essential (primary) hypertension J45.909 Unspecified asthma, uncomplicated Assessments Date Code Description Provider 02/27/2019 J44.1 Chronic obstructive pulmonary disease Sharif Alicea MD with (acute) exacerbation 02/27/2019 R06.02 Shortness of breath Sharif Alicea MD 02/27/2019 R60.0 Localized edema Sharif Alicea MD 02/27/2019 I25.10 Atherosclerotic heart disease of Sharif Alicea MD [place] coronary artery without angina pectoris 02/27/2019 E78.5 Hyperlipidemia, unspecified Sharif Alicea MD 02/27/2019 Z12.11 Encounter for screening for malignant Sharif Alicea MD neoplasm of colon 01/01/2019 J44.1 Chronic obstructive pulmonary disease Dora Lm, OPERATOR with (acute) exacerbation 01/01/2019 J96.01 Acute respiratory failure with hypoxia Dora Lm, OPERATOR 01/01/2019 N17.9 Acute kidney failure, unspecified Dora Lm, OPERATOR 01/01/2019 I10 Essential (primary) hypertension Dora Lm, OPERATOR 01/01/2019 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 Lm, OPERATOR [place] coronary artery without angina pectoris 12/31/2018 J44.1 Chronic obstructive pulmonary disease Dora Lm, OPERATOR with (acute) exacerbation 12/31/2018 J96.01 Acute respiratory failure with hypoxia Dora Lm, OPERATOR 12/31/2018 N17.9 Acute kidney failure, unspecified Dora Lm, OPERATOR 12/31/2018 I10 Essential (primary) hypertension Dora Ml, OPERATOR 12/31/2018 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 Amato, OPERATOR [place] coronary artery without angina pectoris 12/30/2018 J44.9 Chronic obstructive pulmonary disease, Ada Adams NP unspecified 12/30/2018 R79.89 Other specified abnormal findings of Ada Adams NP blood chemistry 12/30/2018 I25.10 Atherosclerotic heart disease of Ada Adams NP [place] coronary artery without angina pectoris 12/30/2018 I10 Essential (primary) hypertension Ada Adams, OPERATOR 11/22/2018 R07.9 Chest pain, unspecified Nida Senner, DO 11/22/2018 I10 Essential (primary) hypertension Nida Senner, DO 11/22/2018 J45.998 Other asthma Nida Senner, DO 11/22/2018 Z12.11 Encounter for screening for malignant Nida Senner, DO neoplasm of colon 11/22/2018 Z12.2 Encounter for screening for malignant Nida Senner, DO neoplasm of respiratory organs 11/14/2018 R07.9 Chest pain, unspecified Hilda Melchor, OPERATOR 11/14/2018 I10 Essential (primary) hypertension Hilda Melchor, OPERATOR 11/14/2018 J45.909 Unspecified asthma, uncomplicated Hilda Melchor, OPERATOR 11/13/2018 R07.9 Chest pain, unspecified Brii Cassius, D.O. 11/13/2018 J45.909 Unspecified asthma, uncomplicated Brii Cassius, D.O. 11/13/2018 I10 Essential (primary) hypertension Brii Cassius, D.O. 11/12/2018 R94.31 Abnormal electrocardiogram [ECG] [EKG] Jose Ledesma M.D., [facility] 11/12/2018 R07.9 Chest pain, unspecified Brii Cassius, D.O. 11/12/2018 I10 Essential (primary) hypertension Brii Cassius, D.O. 11/12/2018 J45.909 Unspecified asthma, uncomplicated Brii Cassius, D.O. Plan of Treatment 02/27/2019 - ADELAIDA Flores44.1 Chronic obstructive pulmonary disease with ( acute) exacerbationNew Medication:Spiriva Respimat 1.25 mcg/Act - 2 inhalations once a dayNew Orders:PFTW/Spirometry Vol Pre/Post Bronchdilat Dlco Complete, Scheduled: 04/24/19R06.02 Shortness of breathNew Orders:Echocardiogram, Scheduled: 04/24/19tress Test, Pharmacologic Nuclear (Lexiscan), Scheduled: Follow up:2 weeks.R60.0 Localized edemaNew Medication:Furosemide 20 mg - 1 by mouth every day for the next 5 days then call us with your tujhhxO62.10 Atherosclerotic heart disease of [place] coronary artery without angina gnfsrdatZ53.5 Hyperlipidemia, unspecifiedNew Medication:Atorvastatin Calcium 40 mg - 1 by mouth every dayComments:Increase lipitor to 40mg a day.Z12.11 Encounter for screening for malignant neoplasm of colonReferral:Malia Franks MD, Cardiovsclr Disease Functional Status Description No Information Available Mental Status Description No Information Available Referrals Refer to Dr Reason for Referral Status Appt Date Malia Franks MD Hx of stents May 2018. SOB, edematous Sent [address] [place] [address] [phone] Navarro Shane MD Sent 12/13/2018 [address] [place] [id number] [phone]
--- OUTSIDE RECORDS SUMMARY | 2019-06-08 09:12 | XMS REPORT | Continuity of Care Document ---
:1955 External Reference #:[id number] Author Name Jose Ledesma M.D., [facility], [facility] (transmitted by agent of provider Pia Mendoza) Address [address] 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 Problems Description No Information Available Social History [...] every Unknown Dose day 81mg Tablets DR Mcwilliams 2 by mouth every Unknown 5mg day [...] Result H/L Range Note Laboratory test 02/27/2019 [facility] B-Type 10 pg/mL <=[address] [address] Peptide BNP [phone] Comp Metabolic 02/27/2019 [facility] Sodium 138 mmol/L Normal 135-[address] [place] [address] [phone] Potassium 4.5 mmol/L Normal 3.5-5.0 Chloride 104 [...] Egfr 71.5 >60 1 CBC Auto 02/27/2019 [facility] White Blood 7.1 10^3/uL Normal 3.5-10.[address] [place] [address] [phone] Red Blood Count 4.55 10^6/uL Normal 4.18-5.48 [...] Blood Cells % 0.0 CBC Auto 12/30/2018 [facility] White Blood 9.4 10^3/uL Normal 3.5-10.[address] [place] [address] [phone] Red Blood Count 4.35 10^6/uL Normal 4.18-5.48 [...] Red Blood Cells % 0.0 Inr/Protime 12/30/2018 [facility] Inr 0.99 Normal 0.82-1.[address] [place] [address] [phone] Laboratory test 12/30/2018 [facility] B-Type 35 <=[address] Natriuretic pg/[place] [address] Peptide BNP [phone] Lactic Acid 1.1 mmol/L Normal 0.5-2.0 3 Troponin-I (TnI) 0.00 ng/mL <0.04 4 Comp Metabolic 12/30/2018 [facility] Sodium 141 mmol/L Normal 135-[address] [place] [address] [phone] Potassium 4.2 mmol/L Normal 3.5-5.0 Chloride 106 [...] Egfr 62.7 >60 5 Laboratory test 12/30/2018 [facility] C Reactive 3.40 mg/L Normal <8.[address] [place] [address] [phone] Influenza A & B 12/30/2018 [facility] Flu AB (SEE [address] Disclaimer NOTE) [place] [address] [phone] Influenza A Molecular NEGATIVE Negative 7 Influenza B Molecular NEGATIVE Negative Laboratory 12/30/2018 [facility] D Dimer < 200 Normal Less 8 test finding [address] Quantitative ng/mL Than [address] [place] [address] [phone] Basic 11/30/2018 [facility] Sodium 139 Normal 135-[address] mmol/[place] [address] [phone] Potassium 4.7 mmol/L Normal 3.5-5.0 Chloride 105 mmol/L Normal 101-111 Co2 Carbon Dioxide 27 mmol/L Normal 22-32 Anion Gap 7 mmol/L Normal 2-11 Glucose 86 mg/dL Normal 70-100 Blood Urea Nitrogen 23 mg/dL Normal 6-24 Creatinine 1.06 mg/dL Normal 0.67-1.17 BUN/Creatinine Ratio 21.7 High 8-20 Calcium 9.4 mg/dL Normal 8.6-10.3 Egfr Non- 70.8 >60 Egfr 85.7 >60 9 Laboratory test 11/30/2018 [facility] Magnesium 2.1 mg/dL Normal 1.9-2.[address] [place] [address] [phone] Phosphorus 3.7 mg/dL Normal 2.5-5.0 1 Because [...] High intensity warfarin therapeutic range: 2.5-3.5 3 TNS Severe Sepsis and Septic Shock Management Bundle Measure requires all lactic acids initially measuring >2.0 mmol/L be repeated. 4 Result TnIDx:0.04 Called to [id number] at: 10:35:24 by:[id number] Read back by: [id number] CORRECTED REPORT --- Corrected on 12/30/18 1234 --- Troponin I previously reported as: 0.04 *C ng/mL Result TnIDx:0.04 Called to [id number] at: 10:35:24 by:[id number] Read back by: [id number] Troponin-I testing on Plasma Separator Tubes (PST) has a known false positive rate of 0.20-0.40%. All positive troponins reflex immediately to secondary confirmatory testing. Using the [employer] oknaI 800 Access Immunoassay systems, the 99th percentile [...] reduce sensitivity of test. Refer to the [facility] Test Catalog for collection information: https://iLikelab.[email or web address] As with all diagnostic procedures, the laboratory results obtained should be used in conjunction with other clinical information available to the physician, including confirmation by another method, as applicable. 7 Short Story Writer: [id number] Please note: The following may produce [...] dialysis) Procedures Date Code Description Status 11/12/2018 60550 EKG, Interpretation Only Completed Medical Devices Description No Information Available Encounters Type Date Location Provider Dx Diagnosis Office Visit 01/01/2019 [facility] Dora Lm, J44.1 Chronic obstructive 9:01a Assoc,pc LONG LINES OPERATOR pulmonary disease w Hospitalists (acute) exacerbation J96.01 Acute respiratory failure with hypoxia N17.9 Acute kidney failure, unspecified I10 Essential (primary) hypertension I25.10 Athscl heart disease of [place] coronary artery w/o ang pctrs Office Visit 12/30/2018 [facility] Ada J44.9 Chronic 9:00a Assoc,pc YO Adams obstructive Hospitalists pulmonary disease, unspecified R79.89 Other specified abnormal findings of blood chemistry I25.10 Athscl heart disease of [place] coronary artery w/o ang pctrs I10 Essential (primary) hypertension Office Visit 11/22/2018 11:00a [employer] Operator Internal Nida R07.9 Chest pain, Medicine - [address], DO unspecified R I10 Essential (primary) hypertension J45.998 Other asthma Z12.11 Encounter for screening for malignant neoplasm of colon Z12.2 Encntr screen for malignant neoplasm of respiratory organs Office Visit 11/14/2018 [facility] Hilda Melchor, R07.9 Chest pain, 9:31a Assoc,pc LONG LINES OPERATOR unspecified Hospitalists I10 Essential (primary) hypertension J45.909 Unspecified asthma, uncomplicated Office Visit 11/12/2018 9:30a [facility] Brii R07.9 Chest pain, Assoc,pc Kuldip Hammonds. 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 02/27/2019 E78.5 Hyperlipidemia, unspecified Sharif Alicea MD 02/27/2019 Z12.11 Encounter for screening for malignant Sharif Alicea MD neoplasm of colon 01/01/2019 J44.1 Chronic obstructive pulmonary disease Dora Lm, LONG LINES OPERATOR with (acute) exacerbation 01/01/2019 J96.01 Acute respiratory failure with hypoxia Dora Lm, LONG LINES OPERATOR 01/01/2019 N17.9 Acute kidney failure, unspecified Dora Lm, LONG LINES OPERATOR 01/01/2019 I10 Essential (primary) hypertension Dora Lm, LONG LINES OPERATOR 01/01/2019 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 Lm, LONG LINES OPERATOR [place] coronary artery without angina pectoris 12/31/2018 J44.1 Chronic obstructive pulmonary disease Dora Lm, LONG LINES OPERATOR with (acute) exacerbation 12/31/2018 J96.01 Acute respiratory failure with hypoxia Dora Lm, LONG LINES OPERATOR 12/31/2018 N17.9 Acute kidney failure, unspecified Dora Lm, LONG LINES OPERATOR 12/31/2018 I10 Essential (primary) hypertension Dora Lm, LONG LINES OPERATOR 12/31/2018 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 Amato LONG LINES OPERATOR [place] coronary artery without angina pectoris 12/30/2018 J44.9 Chronic obstructive pulmonary disease, Ada Adams NP unspecified 12/30/2018 R79.89 Other specified abnormal findings of Ada Adams NP blood chemistry 12/30/2018 I25.10 Atherosclerotic heart disease of [place] Adams NP [place] coronary artery without angina pectoris 12/30/2018 I10 Essential (primary) hypertension Ada Adams, LONG LINES OPERATOR 11/22/2018 R07.9 Chest pain, unspecified Nida Senner, DO 11/22/2018 I10 Essential (primary) hypertension Nida Senner, DO 11/22/2018 J45.998 Other asthma Nida Senner, DO 11/22/2018 Z12.11 Encounter for screening for malignant Nida Senner, DO neoplasm of colon 11/22/2018 Z12.2 Encounter for screening for malignant Nida Senner, DO neoplasm of respiratory organs 11/14/2018 R07.9 Chest pain, unspecified Hilda Melchor, LONG LINES OPERATOR 11/14/2018 I10 Essential (primary) hypertension Hilda Melchor, LONG LINES OPERATOR 11/14/2018 J45.909 Unspecified asthma, uncomplicated Hilda Melchor, LONG LINES OPERATOR 11/13/2018 R07.9 Chest pain, unspecified Brii Cassius, D.O. 11/13/2018 J45.909 Unspecified asthma, uncomplicated Brii Cassius, D.O. 11/13/2018 I10 Essential (primary) hypertension Brii Cassius, D.O. 11/12/2018 R94.31 Abnormal electrocardiogram [ECG] [EKG] Jose Ledesma M.D., [facility], [facility] 11/12/2018 R07.9 Chest pain, unspecified Brii Cassius, D.O. 11/12/2018 I10 Essential (primary) hypertension Brii Cassius, D.O. 11/12/2018 J45.909 Unspecified asthma, uncomplicated Brii Cassius, D.O. Plan of Treatment 02/27/2019 - Sharif Alicea MDJ44.1 Chronic obstructive pulmonary disease with ( acute) exacerbationNew Medication:Spiriva Respimat 1.25 mcg/Act - 2 inhalations once a dayNew Orders:PFTW/Spirometry Vol Pre/Post Bronchdilat Dlco Complete, Scheduled: 04/24/19R06.02 Shortness of breathNew Orders:Echocardiogram, Scheduled: 04/24/19tress Test, Pharmacologic Nuclear (Lexiscan), Scheduled: Follow up:2 weeks.R60.0 Localized edemaNew Medication:Furosemide 20 mg - 1 by mouth every day for the next 5 days then call us with your fpezdoM35.10 Atherosclerotic heart disease of [place] coronary artery without angina acmukintH53.5 Hyperlipidemia, unspecifiedNew Medication:Atorvastatin Calcium 40 mg - 1 by mouth every dayComments:Increase lipitor to 40mg a day.Z12.11 Encounter for screening for malignant neoplasm of colonReferral:Malia Franks MD, Cardiovsclr Disease Functional Status Description No Information Available Mental Status Description No Information Available Referrals Refer to Reason for Referral Status Appt Date Malia Franks MD Hx of stents May 2018. SOB, edematous Sent [address] [place] [address] [phone] Navarro Shane MD Sent 12/13/2018 [address] [place] [address] [phone]
--- OUTSIDE RECORDS SUMMARY | 2019-06-08 09:12 | XMS REPORT | Continuity of Care Document ---
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 Problems Description No Information Available Social History [...] Result H/L Range Note Laboratory test 02/27/2019 [facility] B-Type 10 pg/mL <=[address] [place] [address] Peptide BNP [phone] Comp Metabolic 02/27/2019 [facility] Sodium 138 mmol/L Normal 135-[address] [place] [address] [phone] Potassium 4.5 mmol/L Normal 3.5-5.0 Chloride 104 [...] Egfr 71.5 >60 1 CBC Auto 02/27/2019 [facility] White Blood 7.1 10^3/uL Normal 3.5-10.[address] [place] [address] [phone] Red Blood Count 4.55 10^6/uL Normal 4.18-5.48 [...] Blood Cells % 0.0 CBC Auto 12/30/2018 [facility] White Blood 9.4 10^3/uL Normal 3.5-10.[address] [place] [address] [phone] Red Blood Count 4.35 10^6/uL Normal 4.18-5.48 [...] Red Blood Cells % 0.0 Inr/Protime 12/30/2018 [facility] Inr 0.99 Normal 0.82-1.[address] [place] [address] [phone] Laboratory test 12/30/2018 [facility] B-Type 35 <=[address] Natriuretic pg/[place] [address] Peptide BNP [phone] Lactic Acid 1.1 mmol/L Normal 0.5-2.0 3 Troponin-I (TnI) 0.00 ng/mL <0.04 4 Comp Metabolic 12/30/2018 [facility] Sodium 141 mmol/L Normal 135-[address] [place] [address] [phone] Potassium 4.2 mmol/L Normal 3.5-5.0 Chloride 106 [...] Egfr 62.7 >60 5 Laboratory test 12/30/2018 [facility] C Reactive 3.40 mg/L Normal <8.[address] [place] [address] [phone] Influenza A & B 12/30/2018 [facility] Flu AB (SEE [address] Disclaimer NOTE) [place] [address] [phone] Influenza A Molecular NEGATIVE Negative 7 Influenza B Molecular NEGATIVE Negative Laboratory 12/30/2018 [facility] D Dimer < 200 Normal Less 8 test finding [address] Quantitative ng/mL [address] [place] [address] [phone] Basic 11/30/2018 [facility] Sodium 139 Normal 135-[address] mmol/[place] [address] [phone] Potassium 4.7 mmol/L Normal 3.5-5.0 Chloride 105 mmol/L Normal 101-111 Co2 Carbon Dioxide 27 mmol/L Normal 22-32 Anion Gap 7 mmol/L Normal 2-11 Glucose 86 mg/dL Normal 70-100 Blood Urea Nitrogen 23 mg/dL Normal 6-24 Creatinine 1.06 mg/dL Normal 0.67-1.17 BUN/Creatinine Ratio 21.7 High 8-20 Calcium 9.4 mg/dL Normal 8.6-10.3 Egfr Non- 70.8 >60 Egfr 85.7 >60 9 Laboratory test 11/30/2018 [facility] Magnesium 2.1 mg/dL Normal 1.9-2.[address] [place] [address] [phone] Phosphorus 3.7 mg/dL Normal 2.5-5.0 1 Because [...] High intensity warfarin therapeutic range: 2.5-3.[address] [facility] Severe Sepsis and Septic Shock Management Bundle Measure requires all lactic acids initially measuring >2.0 mmol/L be repeated. 4 Result TnIDx:0.04 Called to [id number] at: 10:35:24 by:[id number] Read back by: [id number] CORRECTED REPORT --- Corrected on 12/30/18 1234 --- Troponin I previously reported as: 0.04 *C ng/mL Result TnIDx:0.04 Called to [id number] at: 10:35:24 by:[id number] Read back by: [id number] Troponin-I testing on Plasma Separator Tubes (PST) has a known false positive rate of 0.20-0.40%. All positive troponins reflex immediately to secondary confirmatory testing. Using the RingRang DxI 800 Access Immunoassay systems, the 99th [...] reduce sensitivity of test. Refer to the [facility] Test Catalog for collection information: [email or web address].[email or web address] As with all diagnostic procedures, the laboratory results obtained should be used in conjunction with other clinical information available to the physician, including confirmation by another method, as applicable. 7 Impregnating Tank Operator: [id number] Please note: The following may produce [...] dialysis) Procedures Date Code Description Status 11/12/2018 63534 EKG, Interpretation Only Completed Medical Devices Description No Information Available Encounters Type Date Location Provider Dx Diagnosis Office Visit 01/01/2019 [facility] Dora Lm, J44.1 Chronic obstructive 9:01a Assoc,pc CRIMINAL PSYCHOLOGIST pulmonary disease w Hospitalists (acute) exacerbation J96.01 Acute respiratory failure with hypoxia N17.9 Acute kidney failure, unspecified I10 Essential (primary) hypertension I25.10 Athscl heart disease of [place] coronary artery w/o ang pctrs Office Visit 12/30/2018 [facility] [place] J44.9 Chronic 9:00a Assoc,reddy Adams NP obstructive Hospitalists pulmonary disease, unspecified R79.89 Other specified abnormal findings of blood chemistry I25.10 Athscl heart disease of [place] coronary artery w/o ang pctrs I10 Essential (primary) hypertension Office Visit 11/22/2018 11:00a [facility] Internal Nida R07.9 Chest pain, Medicine - [address], DO unspecified R I10 Essential (primary) hypertension J45.998 Other asthma Z12.11 Encounter for screening for malignant neoplasm of colon Z12.2 Encntr screen for malignant neoplasm of respiratory organs Office Visit 11/14/2018 [facility] Hilda PryorRanStuart, R07.9 Chest pain, 9:31a Assoc,pc CRIMINAL PSYCHOLOGIST unspecified Hospitalists I10 Essential (primary) hypertension J45.909 Unspecified asthma, uncomplicated Office Visit 11/12/2018 9:30a [facility] Brii R07.9 Chest pain, Assoc,pc Gabrielle Hammonds unspecified Hospitalists I10 Essential (primary) hypertension J45.909 Unspecified asthma, uncomplicated Assessments Date Code Description Provider 02/27/2019 J44.1 Chronic obstructive pulmonary disease Sharif Alicea MD with (acute) exacerbation 02/27/2019 R06.02 Shortness of breath Sharif Alicea MD 02/27/2019 R60.0 Localized edema Sharif Alicea MD 02/27/2019 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 02/27/2019 E78.5 Hyperlipidemia, unspecified Sharif Alicea MD 02/27/2019 Z12.11 Encounter for screening for malignant Sharif Alicea MD neoplasm of colon 01/01/2019 J44.1 Chronic obstructive pulmonary disease Dora Lm, CRIMINAL PSYCHOLOGIST with (acute) exacerbation 01/01/2019 J96.01 Acute respiratory failure with hypoxia Dora Lm, CRIMINAL PSYCHOLOGIST 01/01/2019 N17.9 Acute kidney failure, unspecified Dora Lm, CRIMINAL PSYCHOLOGIST 01/01/2019 I10 Essential (primary) hypertension Dora Lm, CRIMINAL PSYCHOLOGIST 01/01/2019 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 Lm, CRIMINAL PSYCHOLOGIST [place] coronary artery without angina pectoris 12/31/2018 J44.1 Chronic obstructive pulmonary disease Dora Lm, CRIMINAL PSYCHOLOGIST with (acute) exacerbation 12/31/2018 J96.01 Acute respiratory failure with hypoxia Dora Lm, CRIMINAL PSYCHOLOGIST 12/31/2018 N17.9 Acute kidney failure, unspecified Dora Lm, CRIMINAL PSYCHOLOGIST 12/31/2018 I10 Essential (primary) hypertension Dora Lm, CRIMINAL PSYCHOLOGIST 12/31/2018 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 Amato, CRIMINAL PSYCHOLOGIST [place] coronary artery without angina pectoris 12/30/2018 J44.9 Chronic obstructive pulmonary disease, Ada Adams NP unspecified 12/30/2018 R79.89 Other specified abnormal findings of Ada Adams NP blood chemistry 12/30/2018 I25.10 Atherosclerotic heart disease of [place] Adams NP [place] coronary artery without angina pectoris 12/30/2018 I10 Essential (primary) hypertension Ada Adams, CRIMINAL PSYCHOLOGIST 11/22/2018 R07.9 Chest pain, unspecified Nida Senner, DO 11/22/2018 I10 Essential (primary) hypertension Nida Senner, DO 11/22/2018 J45.998 Other asthma Nida Senner, DO 11/22/2018 Z12.11 Encounter for screening for malignant Nida Senner, DO neoplasm of colon 11/22/2018 Z12.2 Encounter for screening for malignant Nida Senner, DO neoplasm of respiratory organs 11/14/2018 R07.9 Chest pain, unspecified Hilda Melchor, CRIMINAL PSYCHOLOGIST 11/14/2018 I10 Essential (primary) hypertension Hilda Melchor, CRIMINAL PSYCHOLOGIST 11/14/2018 J45.909 Unspecified asthma, uncomplicated Hilda Melchor, CRIMINAL PSYCHOLOGIST 11/13/2018 R07.9 Chest pain, unspecified Brii Cassius, D.O. 11/13/2018 J45.909 Unspecified asthma, uncomplicated Brii Cassius, D.O. 11/13/2018 I10 Essential (primary) hypertension Brii Cassius, D.O. 11/12/2018 R94.31 Abnormal electrocardiogram [ECG] [EKG] Jose Ledesma M.D., [facility] 11/12/2018 R07.9 Chest pain, unspecified Brii [...] 5 days then call us with your hxxbjwF88.10 Atherosclerotic heart disease of [place] coronary artery without angina vbnecegfE14.5 Hyperlipidemia, unspecifiedNew Medication:Atorvastatin Calcium 40 mg - [...] SOB, edematous Sent [address] [place] [address] [phone] Navarro Shane MD Sent 12/13/2018 [address] [place] [id number] [phone]
--- OUTSIDE RECORDS SUMMARY | 2019-06-08 09:12 | XMS REPORT | Continuity of Care Document ---
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 Alicea MD Onset: 2018 artery without angina pectoris Chronic obstructive pulmonary disease with (acute) Sharif Alicea MD Onset: 02/27 exacerbation Essential hypertension Sharif Alicea MD Onset: 02/27/2019 Screening for malignant neoplasm of colon Sharif Alicea MD Onset: 02/27/2019 Hyperlipidemia Sharif Alicea MD Onset: 02/27/2019 Edema Sharif Alicea MD Onset: 02/27/2019 Dyspnea Sharif Alicea MD Onset: 02/27/2019 Social History Type Date Description Comments Sex Unknown ETOH Use Denies alcohol use Tobacco Use Start: Unknown End: Patient is a former smoker pt quit in May 2018 Unknown Smoking Status Reviewed: 02/27/19 Patient is a former smoker pt quit in May 2018 Allergies, Adverse Reactions, Alerts Description No Known Drug Allergies Medications Active Medications SIG Qnty Indications Ordering Date Provider Metoprolol Tartrate 1 by mouth twice a Sharif Alicea MD 05/09/2019 day 25mg Tablets Metoprolol Tartrate 1/2 tab by mouth 30tabs I10 Sharif Alicea MD 05/09/2019 twice a day 25mg Tablets Furosemide 1 by mouth every 30tabs R60.0 [...] tab by mouth 30tabs Sharif Alicea MD twice a day 25mg Tablets Albuterol Sulfate one puff every 6 8.500gm Nida aRi, HFA hours DO 108(90Base) mcg/Act Aerosol Immunizations Description No Information [...] Result H/L Range Note Laboratory test 02/27/2019 [facility] B-Type 10 pg/mL <=[address] [place] [address] Peptide BNP [phone] Comp Metabolic 02/27/2019 [facility] Sodium 138 mmol/L Normal 135-[address] [place] [address] [phone] Potassium 4.5 mmol/L Normal 3.5-5.0 Chloride 104 [...] Egfr 71.5 >60 1 CBC Auto 02/27/2019 [facility] White Blood 7.1 10^3/uL Normal 3.5-10.[address] [place] [address] [phone] Red Blood Count 4.55 10^6/uL Normal 4.18-5.48 [...] Blood Cells % 0.0 CBC Auto 12/30/2018 [facility] White Blood 9.4 10^3/uL Normal 3.5-10.[address] [place] [address] [phone] Red Blood Count 4.35 10^6/uL Normal 4.18-5.48 [...] Red Blood Cells % 0.0 Inr/Protime 12/30/2018 [facility] Inr 0.99 Normal 0.82-1.[address] [place] [address] [phone] Laboratory test 12/30/2018 [facility] B-Type 35 <=[address] Natriuretic pg/[place] [address] Peptide BNP [phone] Lactic Acid 1.1 mmol/L Normal 0.5-2.0 3 Troponin-I (TnI) 0.00 ng/mL <0.04 4 Comp Metabolic 12/30/2018 [facility] Sodium 141 mmol/L Normal 135-[address] [place] [address] [phone] Potassium 4.2 mmol/L Normal 3.5-5.0 Chloride 106 [...] Egfr 62.7 >60 5 Laboratory test 12/30/2018 [facility] C Reactive 3.40 mg/L Normal <8.[address] [place] [address] [phone] Influenza A & B 12/30/2018 [facility] Flu AB (SEE [address] Disclaimer NOTE) [place] [address] [phone] Influenza A Molecular NEGATIVE Negative 7 Influenza B Molecular NEGATIVE Negative Laboratory 12/30/2018 [facility] D Dimer < 200 Normal Less 8 test finding [address] Quantitative ng/mL [address] [place] [address] [phone] Basic 11/30/2018 [facility] Sodium 139 Normal 135-[address] mmol/[place] [address] [phone] Potassium 4.7 mmol/L Normal 3.5-5.0 Chloride 105 mmol/L Normal 101-111 Co2 Carbon Dioxide 27 mmol/L Normal 22-32 Anion Gap 7 mmol/L Normal 2-11 Glucose 86 mg/dL Normal 70-100 Blood Urea Nitrogen 23 mg/dL Normal 6-24 Creatinine 1.06 mg/dL Normal 0.67-1.17 BUN/Creatinine Ratio 21.7 High 8-20 Calcium 9.4 mg/dL Normal 8.6-10.3 Egfr Non- 70.8 >60 Egfr 85.7 >60 9 Laboratory test 11/30/2018 [facility] Magnesium 2.1 mg/dL Normal 1.9-2.[address] [place] [address] [phone] Phosphorus 3.7 mg/dL Normal 2.5-5.0 1 Because [...] High intensity warfarin therapeutic range: 2.5-3.5 3 [facility] Severe Sepsis and Septic Shock Management Bundle Measure requires all lactic acids initially measuring >2.0 mmol/L be repeated. 4 Result TnIDx:0.04 Called to [id number] at: 10:35:24 by:[id number] Read back by: [id number] CORRECTED REPORT --- Corrected on 12/30/18 1234 --- Troponin I previously reported as: 0.04 *C ng/mL Result TnIDx:0.04 Called to [id number] at: 10:35:24 by:[id number] Read back by: [id number] Troponin-I testing on Plasma Separator Tubes (PST) has a known false positive rate of 0.20-0.40%. All positive troponins reflex immediately to secondary confirmatory testing. Using the [employer] 800 Access Immunoassay systems, the 99th percentile [...] reduce sensitivity of test. Refer to the [employer] Lab Test Catalog for collection information: [email or web address] As with all diagnostic procedures, the laboratory results obtained should be used in conjunction with other clinical information available to the physician, including confirmation by another method, as applicable. 7 Import/Export Freight Forwarder: [id number] Please note: The following may produce [...] dialysis) Procedures Date Code Description Status 11/12/2018 85572 EKG, Interpretation Only Completed Medical Devices Description No Information Available Encounters Type Date Location Provider Dx Diagnosis Office Visit 02/27/2019 [facility] Internal Sharif Alicea MD J44.1 Chronic obstructive 3:00p Medicine - Suite pulmonary disease w R (acute) exacerbation R06.02 Shortness of breath R60.0 Localized edema I25.10 Athscl heart disease of ambler coronary artery w/o ang pctrs E78.5 Hyperlipidemia, unspecified Z12.11 Encounter for screening for malignant neoplasm of colon I10 Essential (primary) hypertension Office Visit 01/01/2019 9:01a [facility] Dora Lm, J44.1 Chronic 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,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 obstructive Hospitalists pulmonary disease w (acute) exacerbation J96.01 Acute respiratory failure with hypoxia N17.9 Acute kidney failure, unspecified I10 Essential (primary) hypertension I25.10 Athscl heart disease of ambler coronary artery w/o ang pctrs Office Visit 12/30/2018 [facility] Ada J44.9 Chronic 9:00a Assoc,pc [place], MANUFACTURING SUPERVISOR obstructive Hospitalists pulmonary disease, unspecified R79.89 Other specified abnormal findings of blood chemistry I25.10 Athscl heart disease of ambler coronary artery w/o ang pctrs I10 Essential (primary) hypertension Office Visit 11/22/2018 11:00a [facility] Internal Nida R07.9 Chest pain, Medicine - Suite Sen[place], DO unspecified R I10 Essential (primary) hypertension J45.998 Other asthma Z12.11 Encounter for screening for malignant neoplasm of colon Z12.2 Encntr screen for malignant neoplasm of respiratory organs Office Visit 11/14/2018 [facility] Hilda Melchor, R07.9 Chest pain, 9:31a Assoc,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 unspecified Hospitalists I10 Essential (primary) hypertension J45.909 Unspecified asthma, uncomplicated Office Visit 11/12/2018 9:30a [facility] Brii R07.9 Chest pain, Assoc,pc Kuldip Hammonds. unspecified Hospitalists I10 Essential (primary) hypertension J45.909 Unspecified asthma, uncomplicated Assessments Date Code Description Provider 02/27/2019 J44.1 Chronic obstructive pulmonary disease Sharif Alicea MD with (acute) exacerbation 02/27/2019 R06.02 Shortness of breath Sharif Alicea MD 02/27/2019 R60.0 Localized edema Sharif Alicea MD 02/27/2019 I25.10 Atherosclerotic heart disease of Sharif Alicea MD ambler coronary artery without angina pectoris 02/27/2019 E78.5 Hyperlipidemia, unspecified Sharif Alicea MD 02/27/2019 Z12.11 Encounter for screening for malignant Sharif Alicea MD neoplasm of colon 02/27/2019 I10 Essential (primary) hypertension Sharif Alicea MD 01/01/2019 J44.1 Chronic obstructive pulmonary disease Dora Lm, MANUFACTURING SUPERVISOR with (acute) exacerbation 01/01/2019 J96.01 Acute respiratory failure with hypoxia Dora Lm, MANUFACTURING SUPERVISOR 01/01/2019 N17.9 Acute kidney failure, unspecified Dora Lm, MANUFACTURING SUPERVISOR 01/01/2019 I10 Essential (primary) hypertension Dora Lm, MANUFACTURING SUPERVISOR 01/01/2019 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 Amato, MANUFACTURING SUPERVISOR ambler coronary artery without angina pectoris 12/31/2018 J44.1 Chronic obstructive pulmonary disease Dora Lm, MANUFACTURING SUPERVISOR with (acute) exacerbation 12/31/2018 J96.01 Acute respiratory failure with hypoxia Dora Lm, MANUFACTURING SUPERVISOR 12/31/2018 N17.9 Acute kidney failure, unspecified Dora Lm, MANUFACTURING SUPERVISOR 12/31/2018 I10 Essential (primary) hypertension Dora Lm, MANUFACTURING SUPERVISOR 12/31/2018 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 Amato, MANUFACTURING SUPERVISOR ambler coronary artery without angina pectoris 12/30/2018 J44.9 Chronic obstructive pulmonary disease, Ada Adams, MANUFACTURING SUPERVISOR unspecified 12/30/2018 R79.89 Other specified abnormal findings of Ada Adams, MANUFACTURING SUPERVISOR blood chemistry 12/30/2018 I25.10 Atherosclerotic heart disease of Ada Adams, MANUFACTURING SUPERVISOR ambler coronary artery without angina pectoris 12/30/2018 I10 Essential (primary) hypertension Ada Adams, MANUFACTURING SUPERVISOR 11/22/2018 R07.9 Chest pain, unspecified Nida Rai, DO 11/22/2018 I10 Essential (primary) hypertension Nida Rai, DO 11/22/2018 J45.998 Other asthma Nida Rai, DO 11/22/2018 Z12.11 Encounter for screening for malignant Nida Rai DO neoplasm of colon 11/22/2018 Z12.2 Encounter for screening for malignant Nida Rai DO neoplasm of respiratory organs 11/14/2018 R07.9 Chest pain, unspecified Hilda Melchor, MANUFACTURING SUPERVISOR 11/14/2018 I10 Essential (primary) hypertension Hilda Melchor, MANUFACTURING SUPERVISOR 11/14/2018 J45.909 Unspecified asthma, uncomplicated Hilda Melchor, MANUFACTURING SUPERVISOR 11/13/2018 R07.9 Chest pain, unspecified Brii Cassius, D.O. 11/13/2018 J45.909 Unspecified asthma, uncomplicated Brii Cassius, D.O. 11/13/2018 I10 Essential (primary) hypertension Brii Cassius, D.O. 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 Continue lisinopril 10 mg daily, metoprolol tartrate 12.5 mg BID. Will be added a short course of diuretic as heis edematous. Functional Status Description No Information Available Mental Status Description No Information Available Referrals Refer to Dr Reason for Referral Status Appt Date Malia Franks MD Hx of stents May 2018. SOB, edematous Sent [address] [place] [address] [phone] Navarro Shane MD Sent 12/13/2018 [address] [place] [id number] [phone]
[2019-06-08] MEDS ORDERED: Albuterol HFA INHALER* 8 gm MDI INH ONE ×2 (09:24→10:18)
[2019-06-08] MEDS ORDERED: Aspirin 81 mg CHEW TAB* 81 MG TAB.CHEW PO ONE (09:24)
[2019-06-08] MEDS ORDERED: Dexamethasone TAB* 4 MG PO ONE (09:24)
[2019-06-08] MEDS ORDERED: Nitroglycerin TAB 0.4 MG* 0.4 MG TAB SL ONE (09:24)
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
[2019-06-08 09:50] LABS: ABS Basophils 0.1 10^3/ul (0-0.2); ABS Eosinophils 0.6 10^3/ul (0-0.6); ABS Lymphocytes 2.4 10^3/ul (1.0-4.8); ABS Monocytes 0.9 10^3/ul (0-0.8); ABS Neutrophils 3.2 10^3/ul (1.5-7.7); Eosinophil % 8.5 %; Hematocrit 42 % (42-52); Hemoglobin 14.2 g/dL (14.0-18.0); Lymphocyte % 32.8 %; Mean Corpuscular HGB Conc 34 g/dL (31-36); Mean Corpuscular Hemoglobin 31 pg (27-31); Mean Corpuscular Volume 91 fL (80-94); Mean Platelet Volume 7.6 fL (7.4-10.4); Nucleated Red Blood Cells % 0.1; Platelet Count 262 10^3/uL (150-450); Red Cell Distribution Width 15 % (10-15); White Blood Count 7.2 10^3/uL (3.5-10.8)
[2019-06-08 09:58] LABS: Albumin/Globulin Ratio 1.4 (1-3); BUN/Creatinine Ratio 18.6 (8-20); Calcium 9.3 mg/dL (8.6-10.3); EGFR African American 75.4 (>60); EGFR Non-African American 62.3 (>60); Globulin 2.9 g/dL (2-4); Potassium 4.5 mmol/L (3.5-5.0); Total Bilirubin 0.4 mg/dL (0.2-1.0); Total Protein 6.9 g/dL (6.4-8.9)
[2019-06-08 09:59] LABS: Troponin I 0.01 ng/mL (<0.03)
[2019-06-08] MEDS ORDERED: Senna TAB 8.6 mg* TAB PO PRN (13:28)
[2019-06-08] MEDS ORDERED: Al Hydrox/Mg Hydrox/Simet LIQ* 30 ML UDC PO PRN (13:28)
[2019-06-08] MEDS ORDERED: Acetaminophen TAB* 325 MG PO PRN (13:28)
[2019-06-08] MEDS ORDERED: Albuterol HFA INHALER* 8 gm MDI INH PRN (13:32)
--- NOTE | 2019-06-08 15:24 | HP ---
CC: Dr. Rai * HISTORY AND PHYSICAL: DATE OF ADMISSION: 06/08/19 PROVIDER: BENJAMÍN Fraga ATTENDING PHYSICIAN WHILE IN THE HOSPITAL: Dr. Brii Hammonds * (dictated by BENJAMÍN Fraga). PRIMARY CARE PROVIDER: Dr. Rai. CHIEF COMPLAINT: Shortness of breath and chest pain. HISTORY OF PRESENT ILLNESS: William Alcantar is a 64-year-old black male with past medical history significant for COPD, asthma, coronary artery disease, hypertension, hyperlipidemia, who presented to the emergency department today due to chest pain as well as shortness of breath. The patient tells me that he started having a cough yesterday, which is bringing up yellow sputum. At baseline, he does not have a cough. He has been coughing quite a bit and woke up suddenly with chest pain overnight, but it went away with intermittent on its own and he went back to sleep. When he woke up this morning, he was still feeling chest pain and is isolated mostly on the left side of the chest, so he decided to call EMS by his daughter's urging. When he began to ambulate, he was feeling short of breath as well. He denies feeling dyspneic at rest. He denies recent sick contacts. No fevers, chills, myalgias, rhinorrhea, nasal congestion, sore throat, abdominal pain, nausea, vomiting, diarrhea. The patient has had COPD exacerbation with seasons changing in the past. The patient denies radiation of chest pain. The patient did attempt using both his albuterol inhaler and albuterol nebulizer today and did not have any resolution of his symptoms of the chest pain or shortness of breath. PAST MEDICAL HISTORY: 1. Coronary artery disease, status post PCI. 2. HLD. 3. Hypertension. 4. Asthma. 5. COPD without chronic oxygen use. PAST SURGICAL HISTORY: None. HOME MEDICATIONS: 1. Albuterol inhaler 1 puff inhaled q.6 hours p.r.n. shortness of breath/ wheezing. 2. Lisinopril 10 mg p.o. daily. 3. Symbicort 160/4.5 two puffs inhaled b.i.d. 4. Aspirin 81 mg p.o. daily. 5. Albuterol nebulized solution 2.5 inhaled q.4 hours p.r.n. shortness of breath/wheezing. 6. Spiriva 2 puffs inhaled daily. 7. Lipitor 40 mg p.o. daily. 8. Metoprolol tartrate 12.5 mg p.o. b.i.d. ALLERGIES: No known drug allergies. FAMILY HISTORY: The patient's mother due to coronary artery disease and she had CABG. The patient's father due to cancer, which the patient believes was colon cancer. SOCIAL HISTORY: The patient lives with his daughter, Alysha Bowman, who is his surrogate medical decision maker should he need one. He tells me that no one in the house smokes. He is a former smoker. He smokes approximately a pack a day for 18 years and he quit approximately 3 years ago. He had a prior history of cocaine use, but has been abstaining for the last 7 years and he had a prior alcohol use disorder but he has been abstaining for the last 30 years. Denies other illicit drug use and current alcohol use. 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 REVIEW OF SYSTEMS: An 11-point review of systems was completed and all pertinent positives and negatives are as above in the HPI. The other systems are negative. PHYSICAL EXAMINATION GENERAL: Black male, who appears stated age, lying upright in hospital bed, appearing comfortable, in no acute distress, but is tachypneic and not using accessory muscles of respirations. VITAL SIGNS: Temperature 97.5, heart rate 94, respiratory rate 26, oxygen saturation 100% on 3 L, blood pressure 165/113 and later 129/88. HEENT: Eyes: PERRL. Sclerae anicteric. EOMI. ENT: Mucous membranes are moist. LUNGS: Significant wheezing with inspiration and expiration throughout posteriorly and anteriorly. CARDIO: Regular rate and rhythm without murmurs, rubs, or gallops. There was tenderness to palpation at approximately the fourth to fifth rib spaces in the mid clavicular region. ABDOMEN: Soft, nontender, nondistended. EXTREMITIES: No clubbing, cyanosis, or edema. NEURO: The patient is alert and oriented x3. Able to move all extremities. No tremors. SKIN: Warm, dry and intact. PERTINENT STUDIES/LAB DATA: White blood cell count 7.2, hemoglobin , hematocrit 42, platelet count 262. D-dimer less than 200. Sodium 138, potassium 4.5, chloride 105, carbon dioxide 26, anion gap 7, BUN 22, creatinine 1.18, glucose 95, lactic acid 1.4, calcium 9.3. LFTs are unremarkable. Troponin 0.01 x2 readings. BNP 14. EKG, normal sinus rhythm, normal axis. No ST elevations or depressions. Chest x-ray per radiologist's report, impression: Hyperinflation. No active cardiopulmonary disease. ASSESSMENT AND PLAN: William Alcantar is a 64-year-old male with past medical history significant for chronic obstructive pulmonary disease, asthma, coronary artery disease, hypertension and hyperlipidemia, who presented to the emergency department due to shortness of breath and chest pain. The patient will be admitted inpatient for: 1. Acute hypoxic respiratory failure. The patient seems to be experiencing chronic obstructive pulmonary disease exacerbation, which is evident due to his significant wheezing throughout and his history of chronic obstructive pulmonary disease. At baseline, he does not require any oxygen and he is currently requiring 3 L. It appears that his oxygen saturation was 90% on room air upon reviewing of the nursing notes. The patient received one dose of 8 mg p.o. Decadron in the emergency department. Due to its short acting nature, I will be starting 50 mg of prednisone daily starting today. Due to the patient' s presentation, it would be of benefit to test him for COVID-19 which is pending at this time. His presentation to me appears most consistent with a chronic obstructive pulmonary disease exacerbation, although the cause of the exacerbation is unclear to me. It seems like it is most likely consistent with the change in seasons. It was very raining for the past few days and today is the first dry day and it may be due to the environment and the pollen. He has no other upper respiratory infections symptoms and his chest x-ray shows no evidence of pneumonia. I will continue his home Symbicort and Spiriva. Due to him being a PUI for COVID-19, we are trying to avoid nebulizers for this patient unless needed. I will order scheduled albuterol every 4 hours and every 2 hours in between if needed and if this is not improving his symptoms, then we should start him on scheduled DuoNebs. I will order Mucinex as well as he is coughing and producing yellow sputum. Pulmonary embolism seems less likely as D-dimer is negative. 2. Chest pain. This chest pain appears most consistent with musculoskeletal pain due to the patient's cough. It is reproducible on exam. His EKG is without any ischemic changes and his troponins have been negative. I believe the steroids will likely help this. 3. Coronary artery disease. As previously mentioned, I have no concern for acute coronary syndrome at this time. I will continue his home metoprolol, Lipitor, aspirin, and lisinopril. 4. Hypertension. The patient was hypertensive when he initially reported to the emergency department, though this is improved and I believe this is likely due to the pain and stress of his presentation. We will continue to monitor this and I will be continuing his home lisinopril. 5. Asthma. This may represent a mixture of asthma and chronic obstructive pulmonary disease exacerbation. Further management of this as above and I will be continuing the patient's home Symbicort. 6. FEN: The patient may have a heart healthy diet. Electrolytes are not needing replacement and I see no need for IV fluids at this time. 7. DVT prophylaxis: The patient has a VTE risk score of 3 and I will order Lovenox. 8. Code status: The patient is a full code. TIME SPENT: Approximately 50 minutes was spent on this admission, approximately half of this was spent at bedside evaluating the patient and discussing the plan of care. This case has been reviewed by attending physician, Dr. Brii Hammonds, and she agrees with this plan of care. BENJAMÍN FRAGA [id number]/[facility] #: [id number] [facility] CENTERPrieto
[2019-06-08] MEDS: Albuterol HFA INHALER* 8 gm MDI INH SCH ×2 (16:00→17:44)
[2019-06-08] MEDS: Enoxaparin(*) 40 MG/0.4 ML SYR SUBCUT SCH (16:08)
[2019-06-08] MEDS ORDERED: Lisinopril TAB* 10 MG PO ONE (16:35)
[2019-06-08] MEDS: guaiFENesin ER TAB 600 MG PO SCH (20:26)
[2019-06-08] MEDS: Metoprolol Tartrate TAB* 25 MG PO SCH (20:27)
[2019-06-08] MEDS: Mometasone/Formoter 200/5 MDI INH SCH (20:37)
[2019-06-09] MEDS: Albuterol HFA INHALER* 8 gm MDI INH SCH ×7 (00:24→20:55)
[2019-06-09 07:07] LABS: BUN/Creatinine Ratio 19.8 (8-20); Calcium 9.4 mg/dL (8.6-10.3); EGFR African American 69.9 (>60); EGFR Non-African American 57.8 (>60); Potassium 4.6 mmol/L (3.5-5.0)
[2019-06-09] MEDS: Aspirin 81 mg CHEW TAB* 81 MG TAB.CHEW PO SCH (08:04)
[2019-06-09] MEDS: Lisinopril TAB* 10 MG PO SCH (08:05)
[2019-06-09] MEDS: guaiFENesin ER TAB 600 MG PO SCH ×2 (08:06→20:53)
[2019-06-09] MEDS: Atorvastatin* 40 MG TAB PO SCH (08:06)
[2019-06-09] MEDS: Metoprolol Tartrate TAB* 25 MG PO SCH ×2 (08:07→20:53)
[2019-06-09] MEDS: Mometasone/Formoter 200/5 MDI INH SCH ×2 (11:46→21:00)
[2019-06-09] MEDS: SPIRIVA Respimat* (tiotropium) 2.5 mcg/inh Inhaler INH SCH (15:47)
[2019-06-09] MEDS: Enoxaparin(*) 40 MG/0.4 ML SYR SUBCUT SCH (15:48)
--- NOTE | 2019-06-09 16:12 | PN ---
Subjective Date of Service: 06/09/19 Interval History: Pt reports that he is feeling much better today. Reports that his breathing has improved significantly since yesterday. Does request to have nebulizer treatments but it was explained to him because of the COVID 19 virus precautions he would be maintained on MDI's unless they are ineffective. Pt understands and is in agreement with plan of care. Pt also complains that he does not like the food and wants meat with breakfast and more than a turkey sandwich for lunch. Explained to patient that he is on a heart healthy diet. Pt is without further complaints. Family History: Unchanged from Admission Social History: Unchanged from Admission Past Medical History: Unchanged from Admission Objective Active Medications: Acetaminophen (Tylenol Tab*) 650 mg PO Q4H PRN PRN Reason: MILD PAIN or TEMP > 100.4 Al Hydrox/Mg Hydrox/Simethicone (Maalox Plus*) 30 ml PO Q6H PRN PRN Reason: INDIGESTION Albuterol (Ventolin Hfa Inhaler*) 2 puff INH Q2H PRN PRN Reason: SOB/WHEEZING Albuterol (Ventolin Hfa Inhaler*) 2 puff INH Q4H [facility] Last Admin: 06/09/19 15:16 Dose: 2 puff Aspirin (Aspirin 81 Mg Chew Tab*) 81 mg PO DAILY [facility] Last Admin: 06/09/19 08:04 Dose: 81 mg Atorvastatin Calcium (Lipitor*) 40 mg PO DAILY [facility] Last Admin: 06/09/19 08:06 Dose: 40 mg Enoxaparin Sodium (Lovenox(*)) 40 mg SUBCUT Q24H [facility] Last Admin: 06/09/19 15:48 Dose: 40 mg Guaifenesin (Mucinex*) 1,200 mg PO BID [facility] Last Admin: 06/09/19 08:06 Dose: 1,200 mg Lisinopril (Prinivil Tab*) 10 mg PO DAILY [facility] Last Admin: 06/09/19 08:05 Dose: 10 mg Metoprolol Tartrate (Lopressor Tab*) 12.5 mg PO BID [facility] Last Admin: 06/09/19 08:07 Dose: 12.5 mg Mometasone Furoate/Formoterol Fumar (Dulera 200/5 Mdi*) 2 puff INH BID [facility]; Protocol Last Admin: 04/03/20 11:46 Dose: Not Given Prednisone (Deltasone 20 Mg Tab) 60 mg PO DAILY [facility] Last Admin: 06/09/19 08:05 Dose: 60 mg Senna (Senokot 8.6 Mg Tab*) 1 tab PO BID PRN PRN Reason: CONSTIPATION Tiotropium [place] (Spiriva Respimat 2.5 Mcg) 2 puff INH DAILY [facility] Last Admin: 06/09/19 15:47 Dose: 2 puff Vital Signs - 8 hr 06/09/19 06/09/19 11:15 15:15 Temperature 97.8 F Pulse Rate 92 82 Respiratory 20 22 Rate Blood Pressure 135/75 144/66 (mmHg) O2 Sat by Pulse 96 96 Oximetry Oxygen Devices in Use Now: Nasal Cannula Appearance: Middle aged man laying in bed watching TV. Does not appear to be in any type of distress. Eyes: No Scleral Icterus, PERRLA Ears/Nose/Mouth/Throat: NL Teeth, Lips, Gums, Clear Oropharnyx, Mucous Membranes Moist Neck: NL Appearance and Movements; NL JVP, Trachea Midline, No Thyroid Enlargement, Masses Respiratory: Symmetrical Chest Expansion and Respiratory Effort, - - Faint wheezes auscultated throughout all lung [place] Cardiovascular: NL Sounds; No Murmurs; No JVD, RRR, No Edema Abdominal: NL Sounds; No Tenderness; No Distention, No Hepatosplenomegaly Lymphatic: No Cervical Adenopathy Extremities: No Edema, No Clubbing, Cyanosis Skin: No Rash or Ulcers, No Nodules or Sclerosis Neurological: Alert and Oriented x 3, NL Sensation, NL Gait, NL Muscle Strength and Tone Nutrition: Taking PO's Result Diagrams: 06/08/19 09:15 06/09/19 06:07 Assess/Plan/Problems-Billing Assessment: 64 yo gentleman with history significant for COPD, Asthma, CAD, HTN, and Hyperlipidemia that presents to the hospital for complaints chest pain, SOB, and productive cough. - Patient Problems (1) Acute respiratory failure with hypoxia Current Visit: Yes Comment: - COVID 19 Rule out - COPD vs Asthma exacerbation - pt requiring 2L NS presently - Pt has increased SOB on exertion. - Reports feeling better today although he does have faint wheezes throughout all lung [place] his respiratory function is improving. -Productive cough continues, however sputum is clear at this time. Continue Mucinex as needed. -Pt responding well to treatment with 60mg PO prednisone, symbicort, spiriva, and albuterol tx q2h and q4h (2) Asthma Current Visit: Yes Comment: -Possible combination of COPD and asthma exacerbation Pt complaints of productive cough, wheezing and severe shortness of breath. -Pt responding well to treatment with 60mg PO prednisone, symbicort, spiriva, and albuterol tx q2h and q4h (3) CAD (coronary artery disease) Current Visit: No Comment: - Low concern for an acute coronary event - Troponins 0.01 x 2 - Chest pain is reproduceable - Continue aspirin, metoprolol, Lisnopril, Lipitor (4) Chest pain Current Visit: Yes Comment: -Chest pain is reproduceable, troponins have been flat @ 0.01 (5) HTN (hypertension) Current Visit: Yes Comment: - Intermittantly hypertensive no changes to medications at this time. - Continue metoprolol and Lisinopril (6) DVT prophylaxis Current Visit: Yes Comment: - Lovenox SQ (7) Full code status Current Visit: No Comment: Status and Disposition: Guarded Inpatient
[2019-06-10] MEDS: Albuterol HFA INHALER* 8 gm MDI INH SCH ×3 (03:46→08:35)
[2019-06-10 06:33] LABS: ABS Basophils 0.1 10^3/ul (0-0.2); ABS Eosinophils 0.1 10^3/ul (0-0.6); ABS Lymphocytes 2.8 10^3/ul (1.0-4.8); ABS Neutrophils 6.3 10^3/ul (1.5-7.7); Hematocrit 39 % (42-52); Hemoglobin 13.1 g/dL (14.0-18.0); Lymphocyte % 27.1 %; Mean Corpuscular HGB Conc 34 g/dL (31-36); Mean Corpuscular Hemoglobin 31 pg (27-31); Mean Corpuscular Volume 90 fL (80-94); Mean Platelet Volume 7.3 fL (7.4-10.4); Platelet Count 255 10^3/uL (150-450); Red Blood Count 4.27 10^6 /uL (4.18-5.48); Red Cell Distribution Width 15 % (10-15); White Blood Count 10.3 10^3/uL (3.5-10.8)
[2019-06-10 06:50] LABS: BUN/Creatinine Ratio 21.6 (8-20); Calcium 8.6 mg/dL (8.6-10.3); EGFR African American 76.9 (>60); EGFR Non-African American 63.6 (>60); Potassium 3.8 mmol/L (3.5-5.0)
[2019-06-10] MEDS: Mometasone/Formoter 200/5 MDI INH SCH (08:35)
[2019-06-10] MEDS: SPIRIVA Respimat* (tiotropium) 2.5 mcg/inh Inhaler INH SCH (08:35)
[2019-06-10] MEDS: Atorvastatin* 40 MG TAB PO SCH (09:14)
[2019-06-10] MEDS: Aspirin 81 mg CHEW TAB* 81 MG TAB.CHEW PO SCH (09:15)
[2019-06-10] MEDS: Lisinopril TAB* 10 MG PO SCH (09:15)
[2019-06-10] MEDS: Metoprolol Tartrate TAB* 25 MG PO SCH (09:15)
[2019-06-10] MEDS: guaiFENesin ER TAB 600 MG PO SCH (09:15)
[2019-06-10 09:19] VITALS: BP 114/82
--- NOTE | 2019-06-10 14:04 | DS ---
CC: Dr. Nida Rai DISCHARGE SUMMARY: DATE OF ADMISSION: 06/08/19 DATE OF DISCHARGE: 06/10/19 PRIMARY CARE PROVIDER: Dr. Nida Rai. DISPOSITION AT DISCHARGE: Home. CONDITION AT DISCHARGE: Stable. DISCHARGE DIAGNOSES: 1. Dyspnea due to chronic obstructive pulmonary disease exacerbation. 2. The patient is a coronavirus disease rule out. SECONDARY DIAGNOSES: 1. Coronary artery disease, status post percutaneous coronary intervention in the past. 2. Dyslipidemia. 3. Hypertension. 4. Chronic obstructive pulmonary disease, on no oxygen at home. MEDICATIONS AT DISCHARGE: Include prednisone taper 20 mg tablets, the patient is to take 3 tablets o nce a day for 2 days, then 2 tablets once a day for 2 days, then 1 tablet once a day for 2 days, then half of tablet once a day for 2 days, then stop. The remaining medications are unchanged and include: 1. Albuterol inhaler on a p.r.n. basis. 2. Albuterol nebulizer on a p.r.n. basis. 3. Spiriva 1 inhalation daily. 4. Symbicort 160/4.5 two inhalations b.i.d. 5. Lisinopril 10 mg daily. 6. Aspirin 81 mg daily. 7. Metoprolol tartrate 12.5 mg b.i.d. 8. Lipitor 40 mg daily. LABORATORY DATA AND STUDIES PERFORMED DURING THE HOSPITAL STAY: Included: On 06/10/19, sodium of 13 6, potassium 3.8, chloride 105, carbon dioxide 24, BUN 25, creatinine 1.16. Liver function tests at admission were unremarkable. Brain natriuretic peptide was 14. Troponin was 0.01. CBC on 06/10/19, white blood cell count of 10.3, hemoglobin of 13.1, hematocrit of 39, and platelets of 255. D-dimer on admission was below 200. Portable chest x-ray, impression: "Hyperinflation. No active cardiopulmonary disease." The patient's COVID PCR is pending at the time of dictation. HOSPITALIZATION COURSE: William Alcantar is a 64-year-old male with history of COPD, who presented with dyspnea to the hospital on 06/08/19. He suffered from acute hypoxemic respiratory failure and requir ed oxygen supplementation. He was scheduled with steroids with good results. By the time of dischar ge, he was comfortable on room air. He had a COVID testing performed in the emergency department, wh ich is still pending at the time of dictation. At discharge, the patient is recommended to follow up with Dr. Nida Rai in approximately 4 to 7 days and call office for the appointment. COVID isolation protocol was given to the patient. He was educated at discharge how to proceed. PHYSICAL EXAMINATION: At the time of discharge, blood pressure of 114/82, heart rate of 73 and regul ar, respiratory rate 20, oxygen saturation 96% on room air, temperature of 96.7. General: The patie nt is a very pleasant 64-year-old male, who is in no acute distress. The patient is alert and orient ed x3. HEENT: Head: Atraumatic, normocephalic. Eyes: Pupils are equal, reactive to light and acco mmodation. Oropharynx is clear. Mucosa moist. Neck: Supple. No JVD. No bruits bilaterally. Car diovascular: Regular rate and rhythm. No murmur. Respiratory: Distal breath sounds bilaterally. N o wheezes. Abdomen: Soft, nontender. Bowel sounds present in all 4 quadrants. Extremities: There is no edema. Pulses are +2 bilaterally. No clubbing or cyanosis. On neuro evaluation, speech is c lear. Cranial nerves II through XII are grossly intact. Motor strength is 5/5 bilaterally. Please n ote that this is a short summary of the patient's hospitalization. Please refer to further medical r ecords for details. TIME SPENT: Approximately 45 minutes was spent on the patient's discharge. [id number]/[facility] #: [id number]
[2019-06-10] MEDS: Enoxaparin(*) 40 MG/0.4 ML SYR SUBCUT SCH (14:21)
== END 2019-06-10 14:30 | disposition home or self-care (01) | DRG 140 ==
LOC: ED 08:52 → MED 13:28
PROVIDERS: ADMIT Hospitalist; ATTEND Internal Medicine
DX: J44.1 Chronic obstructive pulmonary disease with (acute) exacerbation (principal); J96.01 Acute respiratory failure with hypoxia; I25.10 Atherosclerotic heart disease of native coronary artery without angina pectoris; E78.5 Hyperlipidemia, unspecified; I10 Essential (primary) hypertension; Z95.5 Presence of coronary angioplasty implant and graft; Z79.82 Long term (current) use of aspirin; Z79.51 Long term (current) use of inhaled steroids; Z79.899 Other long term (current) drug therapy; Z82.49 Family history of ischemic heart disease and other diseases of the circulatory system; Z80.0 Family history of malignant neoplasm of digestive organs; Z87.891 Personal history of nicotine dependence; R07.89 Other chest pain
CPT/HCPCS: 36415; 71045; 80048; 80053; 83605; 83880; 84484; 85025; 85379; 87635; 93005; 94640; 99284; A9270-GY; J1650; J3535; J7512; J8540

== ENCOUNTER 2021-12-16 04:23 | Inpatient (IN) ==
[2021-12-16] MEDS ORDERED: methylPREDNISolone SOD SUCC 125 mg 2 ML VIAL IV ONE (04:32)
[2021-12-16] MEDS ORDERED: Albuterol 2.5mg/3 ml (0.083%) NEB.SOLN INH ONE (04:32)
[2021-12-16 05:11] LABS: ABS Basophils 0.1 10^3/ul (0-0.2); ABS Eosinophils 0.6 10^3/ul (0-0.6); ABS Lymphocytes 2.3 10^3/ul (1.0-4.8); ABS Monocytes 0.7 10^3/ul (0-0.8); ABS Neutrophils 3.2 10^3/ul (1.5-7.7); Eosinophil % 8.1 %; Hematocrit 38 % (42-52); Hemoglobin 12.4 g/dL (14.0-18.0); Lymphocyte % 33.7 %; Mean Corpuscular HGB Conc 33 g/dL (31-36); Mean Corpuscular Hemoglobin 31 pg (27-31); Mean Corpuscular Volume 95 fL (80-94); Nucleated Red Blood Cells % 0.1; Platelet Count 231 10^3/uL (150-450); Red Blood Count 3.96 10^6 /uL (4.18-5.48); Red Cell Distribution Width 14 % (10-15); White Blood Count 6.9 10^3/uL (3.5-10.8)
[2021-12-16 05:36] LABS: Albumin 3.6 g/dL (3.2-5.2); Calcium 8.7 mg/dL (8.6-10.3); Potassium 4.2 mmol/L (3.5-5.0); Total Bilirubin 0.3 mg/dL (0.2-1.0)
[2021-12-16 05:42] LABS: Albumin/Globulin Ratio 1.8 (1-3); Total Protein 5.6 g/dL (6.4-8.9); eGFR CKD-EPI 62.7 (>60)
[2021-12-16 06:42] LABS: High Sensitivity Troponin 1 Hr 30 pg/mL (<20)
[2021-12-16 08:24] LABS: High Sensitivity Troponin 3 Hr 31 pg/mL (<20)
[2021-12-16] MEDS: Azithromycin 500 mg/250 ml NS 500 MG/250 ML BAG IVPB SCH (11:05)
[2021-12-16] MEDS: Enoxaparin 40 MG/0.4 ML SYR SUBCUT SCH (11:05)
[2021-12-16 11:18] LABS: HDL Cholesterol 116.5 mg/dL
[2021-12-16] MEDS: Albuterol/Ipratropium NEB.SOL (2.5/0.5 MG) 3 ML NEB.SOLN INH PRN ×2 (15:42→21:04)
[2021-12-16] MEDS: hydrALAZINE 20 mg/ml 1 ML Vial IV IV SLOW PU PRN (17:54)
[2021-12-16] MEDS ORDERED: Lactated Ringers 1000 ml BAG 1,000 ML IV SCH (18:00)
[2021-12-17] MEDS: Albuterol/Ipratropium NEB.SOL (2.5/0.5 MG) 3 ML NEB.SOLN INH PRN ×4 (02:16→19:53)
[2021-12-17 06:19] LABS: ABS Basophils 0.1 10^3/ul (0-0.2); ABS Eosinophils 0.1 10^3/ul (0-0.6); ABS Lymphocytes 2.4 10^3/ul (1.0-4.8); ABS Monocytes 1.3 10^3/ul (0-0.8); ABS Neutrophils 8.6 10^3/ul (1.5-7.7); Hematocrit 37 % (42-52); Hemoglobin 12.2 g/dL (14.0-18.0); Lymphocyte % 19.3 %; Mean Corpuscular HGB Conc 33 g/dL (31-36); Mean Corpuscular Hemoglobin 31 pg (27-31); Mean Corpuscular Volume 95 fL (80-94); Mean Platelet Volume 7.3 fL (7.4-10.4); Platelet Count 236 10^3/uL (150-450); Red Blood Count 3.93 10^6 /uL (4.18-5.48); Red Cell Distribution Width 15 % (10-15); White Blood Count 12.6 10^3/uL (3.5-10.8)
[2021-12-17 06:53] LABS: Calcium 8.9 mg/dL (8.6-10.3); Magnesium 1.9 mg/dL (1.9-2.7); Potassium 4.4 mmol/L (3.5-5.0)
[2021-12-17 06:59] LABS: eGFR CKD-EPI 67.1 (>60)
[2021-12-17] MEDS: Enoxaparin 40 MG/0.4 ML SYR SUBCUT SCH (10:39)
[2021-12-17] MEDS: Azithromycin 500 mg/250 ml NS 500 MG/250 ML BAG IVPB SCH (12:16)
[2021-12-18] MEDS: Albuterol/Ipratropium NEB.SOL (2.5/0.5 MG) 3 ML NEB.SOLN INH PRN ×5 (00:30→20:10)
[2021-12-18] MEDS: guaiFENesin 100 mg/5 ml LIQ unit dose cup PO PRN ×3 (00:41→20:09)
[2021-12-18 07:28] LABS: Hematocrit 37 % (42-52); Hemoglobin 11.8 g/dL (14.0-18.0); Mean Corpuscular HGB Conc 33 g/dL (31-36); Mean Corpuscular Hemoglobin 31 pg (27-31); Mean Corpuscular Volume 95 fL (80-94); Mean Platelet Volume 7.2 fL (7.4-10.4); Platelet Count 236 10^3/uL (150-450); Red Blood Count 3.82 10^6 /uL (4.18-5.48); Red Cell Distribution Width 15 % (10-15); White Blood Count 11.6 10^3/uL (3.5-10.8)
[2021-12-18 07:50] LABS: Calcium 8.7 mg/dL (8.6-10.3); Phosphorus 3.6 mg/dL (2.5-5.0); eGFR CKD-EPI 69.2 (>60)
[2021-12-18] MEDS: Enoxaparin 40 MG/0.4 ML SYR SUBCUT SCH (10:19)
[2021-12-18] MEDS: Azithromycin 500 mg/250 ml NS 500 MG/250 ML BAG IVPB SCH (12:33)
[2021-12-18] MEDS: methylPREDNISolone SOD SUCC 40 mg/ml 1 ml VIAL IV SCH ×2 (14:46→23:42)
[2021-12-19] MEDS: Albuterol/Ipratropium NEB.SOL (2.5/0.5 MG) 3 ML NEB.SOLN INH PRN ×4 (00:29→23:16)
[2021-12-19] MEDS: guaiFENesin 100 mg/5 ml LIQ unit dose cup PO PRN ×2 (02:37→21:00)
[2021-12-19 06:40] LABS: ABS Lymphocytes 1.6 10^3/ul (1.0-4.8); ABS Monocytes 0.6 10^3/ul (0-0.8); ABS Neutrophils 9.7 10^3/ul (1.5-7.7); Eosinophil % 0.1 %; Hematocrit 38 % (42-52); Hemoglobin 12.2 g/dL (14.0-18.0); Lymphocyte % 13.7 %; Mean Corpuscular HGB Conc 33 g/dL (31-36); Mean Corpuscular Hemoglobin 31 pg (27-31); Mean Corpuscular Volume 95 fL (80-94); Mean Platelet Volume 7.5 fL (7.4-10.4); Platelet Count 245 10^3/uL (150-450); Red Blood Count 3.97 10^6 /uL (4.18-5.48); Red Cell Distribution Width 15 % (10-15)
[2021-12-19 07:05] LABS: Magnesium 2.1 mg/dL (1.9-2.7); Phosphorus 4.2 mg/dL (2.5-5.0); Potassium 4.7 mmol/L (3.5-5.0); eGFR CKD-EPI 67.1 (>60)
[2021-12-19] MEDS: Enoxaparin 40 MG/0.4 ML SYR SUBCUT SCH ×2 (09:06→09:08)
[2021-12-19] MEDS: methylPREDNISolone SOD SUCC 40 mg/ml 1 ml VIAL IV SCH ×2 (12:11→23:21)
[2021-12-19] MEDS: cefTRIAXone 1 gm/50 mL D5W 1 GM/50 ML BAG IV SCH (17:14)
[2021-12-20] MEDS: Albuterol/Ipratropium NEB.SOL (2.5/0.5 MG) 3 ML NEB.SOLN INH PRN ×2 (06:04→12:49)
[2021-12-20] MEDS: guaiFENesin 100 mg/5 ml LIQ unit dose cup PO PRN ×2 (06:28→21:46)
[2021-12-20 07:06] LABS: Hematocrit 38 % (42-52); Hemoglobin 12.6 g/dL (14.0-18.0); Mean Corpuscular HGB Conc 33 g/dL (31-36); Mean Corpuscular Hemoglobin 32 pg (27-31); Mean Corpuscular Volume 95 fL (80-94); Mean Platelet Volume 7.2 fL (7.4-10.4); Platelet Count 250 10^3/uL (150-450); Red Blood Count 3.97 10^6 /uL (4.18-5.48); Red Cell Distribution Width 15 % (10-15); White Blood Count 12.7 10^3/uL (3.5-10.8)
[2021-12-20 07:42] LABS: Calcium 9.1 mg/dL (8.6-10.3); Phosphorus 4.2 mg/dL (2.5-5.0); Potassium 4.9 mmol/L (3.5-5.0); eGFR CKD-EPI 62.7 (>60)
[2021-12-20] MEDS: Enoxaparin 40 MG/0.4 ML SYR SUBCUT SCH (09:14)
[2021-12-20] MEDS: methylPREDNISolone SOD SUCC 40 mg/ml 1 ml VIAL IV SCH (11:46)
[2021-12-20] MEDS: Mometasone 220 MCG MDI INH SCH (12:16)
[2021-12-20] MEDS: cefTRIAXone 1 gm/50 mL D5W 1 GM/50 ML BAG IV SCH (16:47)
[2021-12-21] MEDS: methylPREDNISolone SOD SUCC 40 mg/ml 1 ml VIAL IV SCH ×3 (00:48→13:35)
[2021-12-21] MEDS: Albuterol/Ipratropium NEB.SOL (2.5/0.5 MG) 3 ML NEB.SOLN INH PRN ×2 (01:23→10:23)
[2021-12-21 05:55] LABS: Hematocrit 38 % (42-52); Hemoglobin 12.2 g/dL (14.0-18.0); Mean Corpuscular HGB Conc 33 g/dL (31-36); Mean Corpuscular Hemoglobin 31 pg (27-31); Mean Corpuscular Volume 95 fL (80-94); Mean Platelet Volume 7.6 fL (7.4-10.4); Platelet Count 233 10^3/uL (150-450); Red Blood Count 3.94 10^6 /uL (4.18-5.48); Red Cell Distribution Width 15 % (10-15); White Blood Count 12.6 10^3/uL (3.5-10.8)
[2021-12-21 06:17] LABS: ABS Lymphocytes 1.7 10^3/ul (1.0-4.8); ABS Neutrophils 9.8 10^3/ul (1.5-7.7); Eosinophil % 0.1 %; Lymphocyte % 13.8 %
[2021-12-21 06:22] LABS: Calcium 8.6 mg/dL (8.6-10.3); Potassium 4.7 mmol/L (3.5-5.0); eGFR CKD-EPI 69.2 (>60)
[2021-12-21] MEDS: Mometasone 220 MCG MDI INH SCH (08:52)
[2021-12-21] MEDS: Enoxaparin 40 MG/0.4 ML SYR SUBCUT SCH (09:33)
[2021-12-21] MEDS: guaiFENesin 100 mg/5 ml LIQ unit dose cup PO SCH ×2 (13:34→17:13)
[2021-12-21] MEDS: cefTRIAXone 1 gm/50 mL D5W 1 GM/50 ML BAG IV SCH (17:13)
[2021-12-22] MEDS: methylPREDNISolone SOD SUCC 40 mg/ml 1 ml VIAL IV SCH ×2 (01:03→11:03)
[2021-12-22] MEDS: Albuterol/Ipratropium NEB.SOL (2.5/0.5 MG) 3 ML NEB.SOLN INH PRN ×3 (03:38→23:24)
[2021-12-22] MEDS: guaiFENesin 100 mg/5 ml LIQ unit dose cup PO SCH ×5 (03:39→23:19)
[2021-12-22 07:01] LABS: Hematocrit 37 % (42-52); Hemoglobin 12.4 g/dL (14.0-18.0); Mean Corpuscular HGB Conc 33 g/dL (31-36); Mean Corpuscular Hemoglobin 31 pg (27-31); Mean Corpuscular Volume 95 fL (80-94); Mean Platelet Volume 7.4 fL (7.4-10.4); Platelet Count 233 10^3/uL (150-450); Red Blood Count 3.94 10^6 /uL (4.18-5.48); Red Cell Distribution Width 15 % (10-15); White Blood Count 13.7 10^3/uL (3.5-10.8)
[2021-12-22 07:23] LABS: ABS Lymphocytes 1.7 10^3/ul (1.0-4.8); ABS Monocytes 1.2 10^3/ul (0-0.8); ABS Neutrophils 10.8 10^3/ul (1.5-7.7); Eosinophil % 0.2 %; Lymphocyte % 12.4 %
[2021-12-22 07:24] LABS: Calcium 8.3 mg/dL (8.6-10.3); Magnesium 2.1 mg/dL (1.9-2.7); Potassium 4.8 mmol/L (3.5-5.0)
[2021-12-22] MEDS: hydrALAZINE 20 mg/ml 1 ML Vial IV IV SLOW PU PRN (08:19)
[2021-12-22] MEDS: Mometasone 220 MCG MDI INH SCH (08:23)
[2021-12-22] MEDS: Enoxaparin 40 MG/0.4 ML SYR SUBCUT SCH (11:09)
[2021-12-22] MEDS: cefTRIAXone 1 gm/50 mL D5W 1 GM/50 ML BAG IV SCH (17:18)
[2021-12-23] MEDS: methylPREDNISolone SOD SUCC 40 mg/ml 1 ml VIAL IV SCH (00:02)
[2021-12-23] MEDS: Albuterol/Ipratropium NEB.SOL (2.5/0.5 MG) 3 ML NEB.SOLN INH PRN (05:21)
[2021-12-23] MEDS: guaiFENesin 100 mg/5 ml LIQ unit dose cup PO SCH (05:32)
[2021-12-23 06:44] LABS: Hematocrit 38 % (42-52); Hemoglobin 12.4 g/dL (14.0-18.0); Mean Corpuscular HGB Conc 32 g/dL (31-36); Mean Corpuscular Hemoglobin 31 pg (27-31); Mean Corpuscular Volume 96 fL (80-94); Mean Platelet Volume 7.7 fL (7.4-10.4); Platelet Count 238 10^3/uL (150-450); Red Blood Count 4.01 10^6 /uL (4.18-5.48); Red Cell Distribution Width 15 % (10-15); White Blood Count 15.8 10^3/uL (3.5-10.8)
[2021-12-23 07:14] LABS: Calcium 8.4 mg/dL (8.6-10.3); Magnesium 2.2 mg/dL (1.9-2.7); Potassium 4.5 mmol/L (3.5-5.0); eGFR CKD-EPI 59.9 (>60)
[2021-12-23 07:22] LABS: ABS Lymphocytes 3.2 10^3/ul (1.0-4.8); ABS Monocytes 1.8 10^3/ul (0-0.8); ABS Neutrophils 10.7 10^3/ul (1.5-7.7); Eosinophil % 0.2 %; Lymphocyte % 20.5 %
[2021-12-23] MEDS: Mometasone 220 MCG MDI INH SCH (07:51)
[2021-12-23 08:06] VITALS: BP 158/74
[2021-12-23] MEDS: Enoxaparin 40 MG/0.4 ML SYR SUBCUT SCH (08:08)
[2021-12-23 08:09] LABS: RBC Morphology Normal (Normal)
== END 2021-12-23 10:20 | disposition left against medical advice (07) | DRG 133 ==
LOC: ED 04:23 → EDHOLD 04:23 → MEDTELE 12-17 11:22 → SUATTDRO 12-18 11:23
PROVIDERS: ADMIT Hospitalist; ATTEND Internal Medicine

== ENCOUNTER 2022-01-14 06:15 | Observation (INO) ==
[2022-01-14] MEDS ORDERED: Albuterol 2.5mg/3 ml (0.083%) NEB.SOLN INH ONE ×2 (06:20→08:34)
[2022-01-14] MEDS ORDERED: Albuterol 0.5% CONC CONTINUOUS NEB.SOL 5 mg/ml 20 ml BOT INH ONE (06:26)
[2022-01-14 06:47] LABS: Hematocrit 39 % (42-52); Hemoglobin 12.9 g/dL (14.0-18.0); INR 0.9 (0.89-1.11); Mean Corpuscular HGB Conc 33 g/dL (31-36); Mean Corpuscular Hemoglobin 31 pg (27-31); Mean Corpuscular Volume 95 fL (80-94); Mean Platelet Volume 7.1 fL (7.4-10.4); Platelet Count 354 10^3/uL (150-450); Red Blood Count 4.11 10^6 /uL (4.18-5.48); Red Cell Distribution Width 15 % (10-15)
[2022-01-14] MEDS ORDERED: nitroGLYCERIN DRIP 25,000 MCG/250 ML BTL IV SCH (07:00)
[2022-01-14 07:28] LABS: Albumin 4.2 g/dL (3.2-5.2); Albumin/Globulin Ratio 1.7 (1-3); Calcium 9.6 mg/dL (8.6-10.3); Globulin 2.5 g/dL (2-4); Potassium 4.7 mmol/L (3.5-5.0); Total Bilirubin 0.3 mg/dL (0.2-1.0); Total Protein 6.7 g/dL (6.4-8.9); eGFR CKD-EPI 63.3 (>60)
[2022-01-14 07:49] LABS: ABS Basophils 0.1 10^3/ul (0-0.2); ABS Eosinophils 0.2 10^3/ul (0-0.6); ABS Lymphocytes 2.6 10^3/ul (1.0-4.8); ABS Monocytes 0.8 10^3/ul (0-0.8); ABS Neutrophils 5.4 10^3/ul (1.5-7.7); Eosinophil % 2.3 %; Lymphocyte % 28.3 %; Nucleated Red Blood Cells % 0.2; RBC Morphology Normal (Normal)
[2022-01-14 08:25] LABS: High Sensitivity Troponin 1 Hr 108 pg/mL (<20)
[2022-01-14 11:09] LABS: C Reactive Protein 1.58 mg/L (<8.01)
[2022-01-14] MEDS: Enoxaparin 40 MG/0.4 ML SYR SUBCUT SCH (11:23)
[2022-01-14] MEDS: Albuterol/Ipratropium NEB.SOL (2.5/0.5 MG) 3 ML NEB.SOLN INH PRN ×2 (15:42→19:36)
[2022-01-14] MEDS: Mometasone/Formoter 200/5 MDI INH SCH (20:03)
[2022-01-15] MEDS: Albuterol/Ipratropium NEB.SOL (2.5/0.5 MG) 3 ML NEB.SOLN INH PRN ×4 (01:02→18:17)
[2022-01-15 07:03] LABS: ABS Lymphocytes 1.8 10^3/ul (1.0-4.8); ABS Monocytes 1.4 10^3/ul (0-0.8); ABS Neutrophils 12.4 10^3/ul (1.5-7.7); Eosinophil % 0.1 %; Hematocrit 36 % (42-52); Hemoglobin 11.5 g/dL (14.0-18.0); Lymphocyte % 11.7 %; Mean Corpuscular HGB Conc 32 g/dL (31-36); Mean Corpuscular Hemoglobin 31 pg (27-31); Mean Corpuscular Volume 96 fL (80-94); Mean Platelet Volume 7.2 fL (7.4-10.4); Nucleated Red Blood Cells % 0.1; Platelet Count 296 10^3/uL (150-450); Red Blood Count 3.74 10^6 /uL (4.18-5.48); Red Cell Distribution Width 15 % (10-15); White Blood Count 15.6 10^3/uL (3.5-10.8)
[2022-01-15] MEDS: SPIRIVA Respimat (tiotropium) 2.5 mcg/inh Inhaler INH SCH (08:10)
[2022-01-15] MEDS: Mometasone/Formoter 200/5 MDI INH SCH ×2 (08:12→23:21)
[2022-01-15 09:20] LABS: Albumin 3.5 g/dL (3.2-5.2); Albumin/Globulin Ratio 1.5 (1-3); Calcium 9.4 mg/dL (8.6-10.3); Globulin 2.3 g/dL (2-4); Magnesium 2.2 mg/dL (1.9-2.7); Total Bilirubin 0.3 mg/dL (0.2-1.0); Total Protein 5.8 g/dL (6.4-8.9); eGFR CKD-EPI 59.9 (>60)
[2022-01-15 09:26] LABS: Potassium 5.3 mmol/L (3.5-5.0)
[2022-01-15] MEDS: Enoxaparin 40 MG/0.4 ML SYR SUBCUT SCH (10:21)
[2022-01-15] MEDS ORDERED: Regadenoson 0.4 MG/5 ML SYRINGE ONE (10:23)
[2022-01-16] MEDS: Albuterol/Ipratropium NEB.SOL (2.5/0.5 MG) 3 ML NEB.SOLN INH PRN ×3 (03:32→15:02)
[2022-01-16] MEDS: Mometasone/Formoter 200/5 MDI INH SCH (08:09)
[2022-01-16] MEDS: SPIRIVA Respimat (tiotropium) 2.5 mcg/inh Inhaler INH SCH (08:09)
[2022-01-16] MEDS: Enoxaparin 40 MG/0.4 ML SYR SUBCUT SCH (11:16)
[2022-01-16 12:17] LABS: Calcium 9.2 mg/dL (8.6-10.3); Potassium 4.2 mmol/L (3.5-5.0); eGFR CKD-EPI 58.3 (>60)
[2022-01-16 17:58] VITALS: BP 132/60
== END 2022-01-16 17:20 | disposition home or self-care (01) ==
LOC: EDHOLD 06:15 → ED 06:15 → EDHOLD 12:50 → MEDTELE 13:48
PROVIDERS: ADMIT Internal Medicine; ATTEND Internal Medicine

== ENCOUNTER 2022-04-09 22:23 | Observation (INO) ==
[2022-04-09] MEDS ORDERED: Albuterol HFA INHALER 8 gm MDI INH ONE (22:28)
[2022-04-09] MEDS ORDERED: methylPREDNISolone SOD SUCC 125 mg 2 ML VIAL IV ONE (22:28)
[2022-04-09 23:12] LABS: ABS Basophils 0.1 10^3/ul (0-0.2); ABS Eosinophils 0.7 10^3/ul (0-0.6); ABS Monocytes 0.9 10^3/ul (0-0.8); ABS Neutrophils 4.1 10^3/ul (1.5-7.7); Eosinophil % 8.7 %; Hematocrit 30 % (42-52); Hemoglobin 9.5 g/dL (14.0-18.0); Lymphocyte % 26.1 %; Mean Corpuscular HGB Conc 32 g/dL (31-36); Mean Corpuscular Hemoglobin 29 pg (27-31); Mean Corpuscular Volume 91 fL (80-94); Mean Platelet Volume 7.3 fL (7.4-10.4); Platelet Count 225 10^3/uL (150-450); Red Blood Count 3.32 10^6 /uL (4.18-5.48); Red Cell Distribution Width 15 % (10-15); Venous Bicarbonate HCO3 25.4 mmol/L (24-28); White Blood Count 7.8 10^3/uL (3.5-10.8)
[2022-04-09 23:36] LABS: High Sens Troponin Baseline 11 pg/mL (<20)
[2022-04-09 23:45] LABS: CO2 Carbon Dioxide 21 mmol/L (22-32); Calcium 9.1 mg/dL (8.6-10.3); Chloride 106 mmol/L (101-111); Sodium 134 mmol/L (135-145)
[2022-04-09 23:51] LABS: ALT 14 U/L (7-52); Albumin/Globulin Ratio 1.8 (1-3); Alkaline Phosphatase 74 U/L (35-149); Anion Gap 7 mmol/L (2-11); Blood Urea Nitrogen 19 mg/dL (6-24); Creatinine, Serum 1.23 mg/dL (0.67-1.17); Globulin 2.2 g/dL (2-4); Glucose 94 mg/dL (70-100); Total Protein 6.2 g/dL (6.4-8.9); eGFR CKD-EPI 64.7 (>60)
[2022-04-10 00:41] LABS: High Sensitivity Troponin 1 Hr 12 pg/mL (<20); Potassium Redraw 4.3 mmol/L (3.5-5.0)
[2022-04-10] MEDS ORDERED: Remdesivir 100 mg Vial 200 MG in NS 0.9% 250 ml 210 ML IV ONE (02:45)
[2022-04-10] MEDS ORDERED: hydrALAZINE 20 mg/ml 1 ML Vial IV IV SLOW PU PRN (03:33)
[2022-04-10] MEDS ORDERED: hydrALAZINE 20 mg/ml 1 ML Vial IV ONE (03:43)
[2022-04-10] MEDS ORDERED: Enoxaparin 40 MG/0.4 ML SYR SUBCUT SCH (06:00)
[2022-04-10] MEDS ORDERED: Azithromycin 500 mg/250 ml NS 500 MG/250 ML BAG IVPB SCH (06:00)
[2022-04-10 07:19] LABS: ABS Lymphocytes 0.6 10^3/ul (1.0-4.8); ABS Monocytes 0.1 10^3/ul (0-0.8); ABS Neutrophils 6.4 10^3/ul (1.5-7.7); Eosinophil % 0.1 %; Hematocrit 39 % (42-52); Hemoglobin 12.6 g/dL (14.0-18.0); Mean Corpuscular HGB Conc 33 g/dL (31-36); Mean Corpuscular Hemoglobin 29 pg (27-31); Mean Corpuscular Volume 89 fL (80-94); Mean Platelet Volume 7.8 fL (7.4-10.4); Platelet Count 294 10^3/uL (150-450); Red Blood Count 4.33 10^6 /uL (4.18-5.48); Red Cell Distribution Width 15 % (10-15); White Blood Count 7.1 10^3/uL (3.5-10.8)
[2022-04-10] MEDS ORDERED: CMCS:FLUTICAS/UMECLI/VILANT 100-62.5-25 MDI (NF) INH SCH (09:30)
[2022-04-10] MEDS: Albuterol/Ipratropium NEB.SOL (2.5/0.5 MG) 3 ML NEB.SOLN INH PRN ×2 (09:42→13:37)
[2022-04-10] MEDS ORDERED: guaiFENesin 100 mg/5 ml LIQ unit dose cup PO PRN (10:01)
[2022-04-10 12:34] VITALS: BP 169/88
[2022-04-11] MEDS ORDERED: Remdesivir 100 mg Vial 100 MG in NS 0.9% 250 ml 230 ML IV SCH (09:00)
== END 2022-04-10 17:30 | disposition home or self-care (01) ==
LOC: ED 22:23 → SUATTDRO 04-10 01:46 → EDHOLD 04-10 01:46 → INTOOBSV 04-10 01:46 → MED 04-10 04:31
PROVIDERS: ADMIT Internal Medicine; ATTEND Internal Medicine

== ENCOUNTER 2023-02-02 18:40 | Observation (INO) ==
[2023-02-02] MEDS ORDERED: Albuterol/Ipratropium NEB.SOL (2.5/0.5 MG) 3 ML NEB.SOLN INH PRN (20:40)
[2023-02-02] MEDS ORDERED: CMCS: FLUTICAS/UMECLI/VILANT 100-62.5-25 MDI (NF) INH SCH (20:45)
[2023-02-02] MEDS ORDERED: Heparin DRIP 25,000 UNITS BAG 25,000 UNITS/250 ML BAG IV SCH (20:45)
[2023-02-02] MEDS ORDERED: Heparin 5000 UNITS/ML 1 mL VIAL IV SCH (21:00)
[2023-02-02 21:21] LABS: ABS Basophils 0.1 10^3/uL (0.0-0.1); ABS Eosinophils 0.5 10^3/uL (0.0-0.5); ABS Lymphocytes 1.1 10^3/uL (1.0-4.8); ABS Monocytes 0.8 10^3/uL (0.0-1.1); ABS Neutrophils 3.7 10^3/uL (1.5-7.6); ABS Nucleated RBC 0.01 10^3/ul; Eosinophil % 8.2 %; Hematocrit 37.1 % (38-53); Hemoglobin 12.1 g/dL (13.2-16.3); Lymphocyte % 18.5 %; Mean Corpuscular Hemoglobin 26.9 pg (27-33); Mean Corpuscular Hgb Conc 32.6 g/dL (31-36); Mean Corpuscular Volume 82.5 fL (80-97); Mean Platelet Volume 6.8 fL (7.5-11.2); Nucleated Red Blood Cells % 0.1 %/100WBC (0.0-0.8); Platelet Count 321 10^3/uL (150-450); Red Blood Count 4.49 10^6/uL (4.06-5.63); Red Cell Distribution Width 21.3 % (12-17); White Blood Count 6.2 10^3/uL (3.6-10.2)
[2023-02-02 22:27] LABS: Activated Partial Thrombo Time 28.4 seconds (26.0-38.0)
[2023-02-02 23:12] LABS: Creatinine, Serum 1.53 mg/dL (0.67-1.17); HDL Cholesterol 66.1 mg/dL; eGFR CKD-EPI 49.8 (>60)
[2023-02-02] MEDS: Enoxaparin 40 MG/0.4 ML SYR SUBCUT SCH (23:58)
[2023-02-03] MEDS ORDERED: Ondansetron 4 mg VIAL 2 MG/ML 2 ml VIAL IV PRN (01:10)
[2023-02-03] MEDS ORDERED: methylPREDNISolone SOD SUCC 40 mg/ml 1 ml VIAL IV SCH (03:00)
[2023-02-03] MEDS: Albuterol/Ipratropium NEB.SOL (2.5/0.5 MG) 3 ML NEB.SOLN INH SCH ×4 (04:21→20:21)
[2023-02-03 06:23] LABS: Hematocrit 39.5 % (38-53); Hemoglobin 12.9 g/dL (13.2-16.3); Mean Corpuscular Hemoglobin 27.2 pg (27-33); Mean Corpuscular Hgb Conc 32.6 g/dL (31-36); Mean Corpuscular Volume 83.2 fL (80-97); Mean Platelet Volume 7.1 fL (7.5-11.2); Platelet Count 323 10^3/uL (150-450); Red Blood Count 4.75 10^6/uL (4.06-5.63); Red Cell Distribution Width 20.9 % (12-17); White Blood Count 6.4 10^3/uL (3.6-10.2)
[2023-02-03 06:41] LABS: Calcium 9.9 mg/dL (8.6-10.3); Creatinine, Serum 1.33 mg/dL (0.67-1.17); Potassium 5.1 mmol/L (3.5-5.0)
[2023-02-03] MEDS: Prasugrel 10 mg TAB (NF) PO SCH (08:53)
[2023-02-03] MEDS: methylPREDNISolone SOD SUCC 40 mg/ml 1 ml VIAL IV SCH ×3 (08:54→23:40)
[2023-02-03 11:17] LABS: Ferritin 12.3 ng/mL (24-336)
[2023-02-03] MEDS ORDERED: Sulfur Hexaflouride MICROSPHR 25 MG VIAL ONE (15:58)
[2023-02-03] MEDS: Enoxaparin 40 MG/0.4 ML SYR SUBCUT SCH (21:00)
[2023-02-04] MEDS: Albuterol/Ipratropium NEB.SOL (2.5/0.5 MG) 3 ML NEB.SOLN INH SCH ×3 (00:21→13:22)
[2023-02-04] MEDS: Calcium Carb (TUMS) 500 mg CHEW TAB PO PRN ×3 (00:57→13:34)
[2023-02-04 06:22] LABS: ABS Basophils 0.1 10^3/uL (0.0-0.1); ABS Lymphocytes 0.6 10^3/uL (1.0-4.8); ABS Monocytes 0.3 10^3/uL (0.0-1.1); ABS Neutrophils 11.5 10^3/uL (1.5-7.6); Eosinophil % 0.1 %; Hematocrit 38.9 % (38-53); Hemoglobin 12.4 g/dL (13.2-16.3); Lymphocyte % 4.9 %; Mean Corpuscular Hemoglobin 26.3 pg (27-33); Mean Corpuscular Hgb Conc 31.8 g/dL (31-36); Mean Corpuscular Volume 82.7 fL (80-97); Mean Platelet Volume 7.1 fL (7.5-11.2); Platelet Count 330 10^3/uL (150-450); Red Cell Distribution Width 21.2 % (12-17); White Blood Count 12.5 10^3/uL (3.6-10.2)
[2023-02-04 06:41] LABS: Calcium 9.7 mg/dL (8.6-10.3); Creatinine, Serum 1.17 mg/dL (0.67-1.17); Potassium 4.6 mmol/L (3.5-5.0); eGFR CKD-EPI 68.8 (>60)
[2023-02-04] MEDS: methylPREDNISolone SOD SUCC 40 mg/ml 1 ml VIAL IV SCH ×2 (07:23→16:19)
[2023-02-04] MEDS: Prasugrel 10 mg TAB (NF) PO SCH (07:23)
[2023-02-04] MEDS ORDERED: Regadenoson 0.4 MG/5 ML SYRINGE ONE (07:46)
[2023-02-04] MEDS ORDERED: Aminophylline 25 MG/ML VIAL ONE (07:46)
[2023-02-04] MEDS ORDERED: Ferric Gluconate IV 250 MG in NS 0.9% 250 ml 180 ML IVPB ONE (11:30)
[2023-02-04 15:17] VITALS: BP 138/68
== END 2023-02-04 16:57 | disposition home or self-care (01) ==
LOC: EDHOLD 18:40 → ED 18:40 → SUATTDRO 20:09 → MEDTELE 23:08
PROVIDERS: ADMIT Student in an Organized Health Care Education/Training Program; ATTEND Internal Medicine

== ENCOUNTER 2023-05-18 10:34 | Inpatient (IN) ==
[2023-05-18] MEDS ORDERED: Albuterol/Ipratropium NEB.SOL (2.5/0.5 MG) 3 ML NEB.SOLN ONE (10:37)
[2023-05-18] MEDS: Albuterol/Ipratropium NEB.SOL (2.5/0.5 MG) 3 ML NEB.SOLN INH ONE (10:45)
[2023-05-18] MEDS: cefTRIAXone 1 gm/50 mL D5W 1 GM/50 ML BAG IV ONE (11:04)
[2023-05-18 11:06] LABS: ABS Eosinophils 0.6 10^3/uL (0.0-0.5); ABS Lymphocytes 1.4 10^3/uL (1.0-4.8); ABS Monocytes 0.7 10^3/uL (0.0-1.1); ABS Neutrophils 3.6 10^3/uL (1.5-7.6); ABS Nucleated RBC 0.01 10^3/ul; Eosinophil % 8.9 %; Hematocrit 37.8 % (38-53); Hemoglobin 12.3 g/dL (13.2-16.3); Lymphocyte % 22.4 %; Mean Corpuscular Hemoglobin 28.4 pg (27-33); Mean Corpuscular Hgb Conc 32.6 g/dL (31-36); Mean Platelet Volume 7.1 fL (7.5-11.2); Nucleated Red Blood Cells % 0.1 %/100WBC (0.0-0.8); Platelet Count 339 10^3/uL (150-450); Red Blood Count 4.34 10^6/uL (4.06-5.63); Red Cell Distribution Width 15.6 % (12-17); White Blood Count 6.2 10^3/uL (3.6-10.2)
[2023-05-18 11:28] LABS: Albumin/Globulin Ratio 1.5 (1-3); Calcium 9.2 mg/dL (8.6-10.3); Creatinine, Serum 1.25 mg/dL (0.67-1.17); Globulin 2.6 g/dL (2-4); Potassium 4.4 mmol/L (3.5-5.0); Total Bilirubin 0.3 mg/dL (0.2-1.0); Total Protein 6.6 g/dL (6.4-8.9); eGFR CKD-EPI 63.1 (>60)
[2023-05-18] MEDS: Azithromycin 500 mg/250 ml NS 500 MG/250 ML BAG IVPB ONE (11:37)
[2023-05-18] MEDS: Morphine 4 MG/ML VIAL (1 ml) IV ONE (12:30)
[2023-05-18 12:32] LABS: High Sensitivity Troponin 1 Hr 12 pg/mL (<20)
[2023-05-18] MEDS: Magnesium Sulfate 2 gm BAG 2 GM/50 ML BAG IVPB ONE (12:57)
[2023-05-18 14:35] LABS: C Reactive Protein 8.76 mg/L (<8.01)
[2023-05-18] MEDS: Albuterol/Ipratropium NEB.SOL (2.5/0.5 MG) 3 ML NEB.SOLN INH PRN (15:51)
[2023-05-18] MEDS: Iohexol 350 (CONTRAST) 500 ML MDV IV ONE (17:08)
[2023-05-18] MEDS: Mometasone/Formoter 100/5 MDI INH SCH (19:03)
[2023-05-18] MEDS: Albuterol HFA INHALER 8 gm MDI INH PRN (19:19)
[2023-05-18] MEDS: Labetalol IV 5 MG/ML 20 ml VIAL IV PUSH ONE (21:46)
[2023-05-18] MEDS: Enoxaparin 40 MG/0.4 ML SYR SUBCUT SCH (21:50)
[2023-05-18] MEDS: Morphine 2 MG/ML SYRINGE IV ONE (23:34)
[2023-05-19] MEDS ORDERED: cefTRIAXone 1 gm/50 mL D5W 1 GM/50 ML BAG IV SCH (11:00)
[2023-05-19] MEDS: Azithromycin 500 mg/250 ml NS 500 MG/250 ML BAG IVPB SCH (11:33)
[2023-05-19] MEDS: Albuterol/Ipratropium NEB.SOL (2.5/0.5 MG) 3 ML NEB.SOLN INH SCH (19:15)
[2023-05-20] MEDS: Furosemide 40 mg/4 ml IV VIAL IV ONE (11:58)
[2023-05-21 05:16] LABS: Calcium 8.9 mg/dL (8.6-10.3); Creatinine, Serum 1.2 mg/dL (0.67-1.17); Potassium 4.3 mmol/L (3.5-5.0); eGFR CKD-EPI 66.3 (>60)
[2023-05-21] MEDS ORDERED: Sulfur Hexaflouride MICROSPHR 25 MG VIAL ONE (10:37)
[2023-05-21] MEDS: Furosemide 40 mg/4 ml IV VIAL IV ONE (11:19)
[2023-05-21] MEDS: Albuterol/Ipratropium NEB.SOL (2.5/0.5 MG) 3 ML NEB.SOLN INH SCH ×2 (13:29→23:02)
[2023-05-21] MEDS ORDERED: Albuterol/Ipratropium NEB.SOL (2.5/0.5 MG) 3 ML NEB.SOLN INH SCH (21:00)
[2023-05-21] MEDS: methylPREDNISolone SOD SUCC 125 mg 2 ML VIAL IV ONE (21:04)
[2023-05-22] MEDS: Morphine 4 MG/ML VIAL (1 ml) IV ONE (00:47)
[2023-05-22] MEDS: methylPREDNISolone SOD SUCC 40 mg/ml 1 ml VIAL IV SCH (09:06)
[2023-05-22] MEDS: Albuterol/Ipratropium NEB.SOL (2.5/0.5 MG) 3 ML NEB.SOLN INH SCH ×2 (13:30→19:49)
[2023-05-22] MEDS ORDERED: Albuterol/Ipratropium NEB.SOL (2.5/0.5 MG) 3 ML NEB.SOLN INH SCH (19:00)
[2023-05-23 10:06] LABS: High Sensitivity Troponin 1 Hr 31 pg/mL (<20)
[2023-05-23] MEDS: Albuterol/Ipratropium NEB.SOL (2.5/0.5 MG) 3 ML NEB.SOLN INH PRN (16:26)
[2023-05-23] MEDS: Morphine 4 MG/ML VIAL (1 ml) IV ONE (22:52)
[2023-05-23] MEDS: Calcium Carb (TUMS) 500 mg CHEW TAB PO ONE (23:59)
[2023-05-24] MEDS: Morphine 4 MG/ML VIAL (1 ml) IV ONE (14:49)
[2023-05-24] MEDS: Influenza vaccine *QUAD* *2023-24* 0.5 ML SYRINGE IM ONE (14:59)
[2023-05-24] MEDS: Calcium Carb (TUMS) 500 mg CHEW TAB PO PRN (17:21)
[2023-05-25] MEDS: COVID VAC 23-24(12+)(Moderna) SYR 0.5 ML IM ONE (08:42)
[2023-05-25] MEDS: methylPREDNISolone SOD SUCC 40 mg/ml 1 ml VIAL IV ONE (17:59)
[2023-05-25] MEDS: Albuterol/Ipratropium NEB.SOL (2.5/0.5 MG) 3 ML NEB.SOLN INH SCH (18:42)
[2023-05-25] MEDS: Albuterol/Ipratropium NEB.SOL (2.5/0.5 MG) 3 ML NEB.SOLN INH PRN (18:55)
[2023-05-26] MEDS: Morphine 2 MG/ML SYRINGE IV ONE (21:50)
[2023-05-27 06:54] LABS: Hematocrit 43.4 % (38-53); Hemoglobin 13.7 g/dL (13.2-16.3); Mean Corpuscular Hemoglobin 28.2 pg (27-33); Mean Corpuscular Hgb Conc 31.5 g/dL (31-36); Mean Corpuscular Volume 89.5 fL (80-97); Mean Platelet Volume 7.1 fL (7.5-11.2); Platelet Count 335 10^3/uL (150-450); Red Blood Count 4.85 10^6/uL (4.06-5.63); Red Cell Distribution Width 16.2 % (12-17); White Blood Count 13.4 10^3/uL (3.6-10.2)
[2023-05-27 07:01] LABS: Calcium 9.1 mg/dL (8.6-10.3); Creatinine, Serum 1.33 mg/dL (0.67-1.17); Magnesium 2.5 mg/dL (1.9-2.7); Potassium 4.9 mmol/L (3.5-5.0); eGFR CKD-EPI 58.6 (>60)
[2023-05-27 07:56] LABS: ABS Lymphocytes 0.8 10^3/uL (1.0-4.8); ABS Monocytes 1.2 10^3/uL (0.0-1.1); ABS Neutrophils 11.4 10^3/uL (1.5-7.6); ABS Nucleated RBC 0.01 10^3/ul; Lymphocyte % 6.1 %; Nucleated Red Blood Cells % 0.1 %/100WBC (0.0-0.8)
[2023-05-28] MEDS ORDERED: Aminophylline 25 MG/ML VIAL ONE (07:23)
[2023-05-28] MEDS ORDERED: Regadenoson 0.4 MG/5 ML SYRINGE ONE (07:23)
[2023-05-28 10:48] VITALS: BP 133/72
== END 2023-05-28 13:40 | disposition home or self-care (01) | DRG 191 ==
LOC: EDHOLD 10:34 → ED 10:34 → MED 16:37 → SUATTDRO 05-21 20:18
PROVIDERS: ADMIT Hospitalist; ATTEND Hospitalist

== ENCOUNTER 2023-07-27 09:44 | Inpatient (IN) ==
[2023-07-27] MEDS ORDERED: Ondansetron 4 mg VIAL 2 MG/ML 2 ml VIAL ONE (09:56)
[2023-07-27] MEDS ORDERED: Midazolam 2 mg/2 ml VIAL 1 mg/ml 2 ml VIAL (2 mg) ONE ×2 (09:57→10:17)
[2023-07-27] MEDS: Midazolam 2 mg/2 ml VIAL 1 mg/ml 2 ml VIAL (2 mg) IV SLOW PU ONE (10:00)
[2023-07-27] MEDS: Ondansetron 4 mg VIAL 2 MG/ML 2 ml VIAL IV ONE (10:11)
[2023-07-27 11:07] LABS: High Sens Troponin Baseline 7 pg/mL (<20)
[2023-07-27 11:08] LABS: ALT 15 U/L (7-52); Albumin 3.5 g/dL (3.2-5.2); Albumin/Globulin Ratio 1.3 (1-3); Alkaline Phosphatase 86 U/L (35-149); Anion Gap 11 mmol/L (2-16); Blood Urea Nitrogen 11 mg/dL (6-24); CO2 Carbon Dioxide 26 mmol/L (22-32); Calcium 8.9 mg/dL (8.6-10.3); Chloride 102 mmol/L (101-111); Creatinine, Serum 1.04 mg/dL (0.67-1.17); Globulin 2.7 g/dL (2-4); Glucose 134 mg/dL (70-100); Sodium 139 mmol/L (135-145); Total Bilirubin 0.3 mg/dL (0.2-1.0); Total Protein 6.2 g/dL (6.4-8.9); eGFR CKD-EPI 78.7 (>60)
[2023-07-27 11:11] LABS: ABS Basophils 0.1 10^3/uL (0.0-0.1); ABS Eosinophils 0.4 10^3/uL (0.0-0.5); ABS Monocytes 0.7 10^3/uL (0.0-1.1); ABS Neutrophils 7.1 10^3/uL (1.5-7.6); Eosinophil % 3.8 %; Hemoglobin 7.5 g/dL (13.2-16.3); Lymphocyte % 10.7 %; Mean Corpuscular Hemoglobin 26.3 pg (27-33); Mean Corpuscular Hgb Conc 31.5 g/dL (31-36); Mean Corpuscular Volume 83.6 fL (80-97); Mean Platelet Volume 6.4 fL (7.5-11.2); Platelet Count 405 10^3/uL (150-450); Red Blood Count 2.87 10^6/uL (4.06-5.63); White Blood Count 9.2 10^3/uL (3.6-10.2)
[2023-07-27] MEDS: levETIRAcetam 1000MG IVPREMIX 1,000 MG/100 ML BAG IVPB ONE (11:58)
[2023-07-27 12:24] LABS: High Sensitivity Troponin 1 Hr 8 pg/mL (<20)
[2023-07-27 12:53] LABS: Potassium Redraw 4.5 mmol/L (3.5-5.0)
[2023-07-27] MEDS ORDERED: Ondansetron 4 mg VIAL 2 MG/ML 2 ml VIAL IV PRN (13:15)
[2023-07-27] MEDS ORDERED: Polyethylene Glycol 3350 17 GM PACKET PO PRN (13:15)
[2023-07-27 13:46] LABS: Magnesium 1.9 mg/dL (1.9-2.7)
[2023-07-27 13:59] LABS: TSH Ultra Thyroid Stim Horm 1.32 mcIU/mL (0.34-5.60)
[2023-07-27 14:06] LABS: Ferritin 39.9 ng/mL (24-336)
[2023-07-27 14:10] LABS: Folate 15.22 ng/mL (5.90-24.80)
[2023-07-27] MEDS ORDERED: Dextrose 50% Syringe 50 ml 25 GM/50 ML SYRINGE IV PUSH PRN (15:19)
[2023-07-27] MEDS: NS 0.9% 1000 ml BAG 1,000 ML IV SCH (15:48)
[2023-07-27] MEDS: LORazepam 2 MG/ML 1 mL Syringe IV ONE (18:14)
[2023-07-27] MEDS: Mometasone/Formoter 200/5 MDI INH SCH (20:03)
[2023-07-27] MEDS: Senna TAB 8.6 mg TAB PO SCH (21:57)
[2023-07-28] MEDS: Pantoprazole VIAL 40 MG VIAL IV SCH ×2 (09:03→20:55)
[2023-07-28 14:55] LABS: ABS Basophils 0.1 10^3/uL (0.0-0.1); ABS Eosinophils 0.3 10^3/uL (0.0-0.5); ABS Lymphocytes 1.4 10^3/uL (1.0-4.8); ABS Monocytes 0.8 10^3/uL (0.0-1.1); ABS Neutrophils 3.4 10^3/uL (1.5-7.6); ABS Nucleated RBC 0.02 10^3/ul; Eosinophil % 5.6 %; Hematocrit 24.5 % (38-53); Hemoglobin 7.8 g/dL (13.2-16.3); Mean Corpuscular Hemoglobin 26.1 pg (27-33); Mean Corpuscular Hgb Conc 31.6 g/dL (31-36); Mean Corpuscular Volume 82.4 fL (80-97); Mean Platelet Volume 6.3 fL (7.5-11.2); Nucleated Red Blood Cells % 0.4 %/100WBC (0.0-0.8); Platelet Count 406 10^3/uL (150-450); Red Blood Count 2.97 10^6/uL (4.06-5.63); Red Cell Distribution Width 20.2 % (12-17); White Blood Count 5.9 10^3/uL (3.6-10.2)
[2023-07-28 15:35] LABS: Albumin 3.6 g/dL (3.2-5.2); Albumin/Globulin Ratio 1.5 (1-3); Creatinine, Serum 1.11 mg/dL (0.67-1.17); Globulin 2.4 g/dL (2-4); Potassium 3.9 mmol/L (3.5-5.0); Total Bilirubin 0.5 mg/dL (0.2-1.0); eGFR CKD-EPI 72.8 (>60)
[2023-07-28] MEDS: diazePAM INJ CARPUJECT 5 MG/ML SYRINGE IV ONE (15:43)
[2023-07-28] MEDS: Albuterol HFA INHALER 8 gm MDI INH PRN (16:32)
[2023-07-28] MEDS: Albuterol/Ipratropium NEB.SOL (2.5/0.5 MG) 3 ML NEB.SOLN INH PRN (17:04)
[2023-07-29 07:08] LABS: ABS Basophils 0.1 10^3/uL (0.0-0.1); ABS Eosinophils 0.3 10^3/uL (0.0-0.5); ABS Lymphocytes 1.4 10^3/uL (1.0-4.8); ABS Monocytes 0.7 10^3/uL (0.0-1.1); ABS Neutrophils 4.2 10^3/uL (1.5-7.6); ABS Nucleated RBC 0.01 10^3/ul; Eosinophil % 5.2 %; Hematocrit 30.6 % (38-53); Hemoglobin 9.7 g/dL (13.2-16.3); Lymphocyte % 21.7 %; Mean Corpuscular Hemoglobin 26.8 pg (27-33); Mean Corpuscular Hgb Conc 31.8 g/dL (31-36); Mean Corpuscular Volume 84.2 fL (80-97); Mean Platelet Volume 6.5 fL (7.5-11.2); Nucleated Red Blood Cells % 0.2 %/100WBC (0.0-0.8); Platelet Count 431 10^3/uL (150-450); Red Blood Count 3.63 10^6/uL (4.06-5.63); Red Cell Distribution Width 20.3 % (12-17); White Blood Count 6.7 10^3/uL (3.6-10.2)
[2023-07-29 07:37] LABS: Calcium 9.4 mg/dL (8.6-10.3); Creatinine, Serum 1.11 mg/dL (0.67-1.17); Potassium 4.1 mmol/L (3.5-5.0); eGFR CKD-EPI 72.8 (>60)
[2023-07-29] MEDS: Ferric Gluconate IV 250 MG in NS 0.9% 250 ml 200 ML IVPB SCH (10:34)
[2023-07-29] MEDS: levETIRAcetam 500 MG IVPREMIX 500 MG/100 ML BAG IV SCH (10:34)
[2023-07-29] MEDS: Lidocaine PATCH 5% PATCH TRANSDERM ONE (21:49)
[2023-07-30 08:16] LABS: Hematocrit 28.6 % (38-53); Hemoglobin 9.2 g/dL (13.2-16.3); Mean Corpuscular Hemoglobin 27.2 pg (27-33); Mean Corpuscular Hgb Conc 32.3 g/dL (31-36); Mean Corpuscular Volume 84.1 fL (80-97); Mean Platelet Volume 6.2 fL (7.5-11.2); Platelet Count 415 10^3/uL (150-450); Red Cell Distribution Width 20.2 % (12-17); White Blood Count 6.9 10^3/uL (3.6-10.2)
[2023-07-30 08:55] LABS: Calcium 9.1 mg/dL (8.6-10.3); Creatinine, Serum 0.97 mg/dL (0.67-1.17); Potassium 4.6 mmol/L (3.5-5.0); eGFR CKD-EPI 85.6 (>60)
[2023-07-30 08:59] LABS: ABS Basophils 0.1 10^3/uL (0.0-0.1); ABS Eosinophils 0.4 10^3/uL (0.0-0.5); ABS Lymphocytes 1.2 10^3/uL (1.0-4.8); ABS Monocytes 0.7 10^3/uL (0.0-1.1); ABS Neutrophils 4.5 10^3/uL (1.5-7.6); ABS Nucleated RBC 0.02 10^3/ul; Anisocytosis 2+; Eosinophil % 5.9 %; Lymphocyte % 17.5 %; Nucleated Red Blood Cells % 0.2 %/100WBC (0.0-0.8); Polychromasia 1+
[2023-07-30 13:31] VITALS: BP 145/95
== END 2023-07-30 14:50 | DRG 812 ==
LOC: ED 09:44 → EDHOLD 13:13 → MED 16:11
PROVIDERS: ADMIT Hospitalist; ATTEND Hospitalist
PROC: O.GIEGD (2023-07-29 14:35)

== ENCOUNTER 2023-10-05 18:45 | Observation (INO) ==
[2023-10-05 21:07] LABS: ABS Basophils 0.1 10^3/uL (0.0-0.1); ABS Eosinophils 0.3 10^3/uL (0.0-0.5); ABS Lymphocytes 1.5 10^3/uL (1.0-4.8); ABS Monocytes 0.7 10^3/uL (0.0-1.1); ABS Neutrophils 5.1 10^3/uL (1.5-7.6); Eosinophil % 4.4 %; Hematocrit 34.6 % (38-53); Hemoglobin 11.1 g/dL (13.2-16.3); Lymphocyte % 19.7 %; Mean Corpuscular Hgb Conc 32.2 g/dL (31-36); Mean Corpuscular Volume 86.8 fL (80-97); Mean Platelet Volume 6.9 fL (7.5-11.2); Platelet Count 405 10^3/uL (150-450); Red Blood Count 3.98 10^6/uL (4.06-5.63); Red Cell Distribution Width 20.1 % (12-17); White Blood Count 7.8 10^3/uL (3.6-10.2)
[2023-10-05 21:13] LABS: INR 1.13 (0.83-1.13)
[2023-10-05 21:39] LABS: Albumin 4.1 g/dL (3.2-5.2); Albumin/Globulin Ratio 1.5 (1-3); Calcium 9.9 mg/dL (8.6-10.3); Creatinine, Serum 1.23 mg/dL (0.67-1.17); Globulin 2.8 g/dL (2-4); Magnesium 2.2 mg/dL (1.9-2.7); Total Bilirubin 0.4 mg/dL (0.2-1.0); Total Protein 6.9 g/dL (6.4-8.9); eGFR CKD-EPI 64.3 (>60)
[2023-10-05 21:55] LABS: TSH Ultra Thyroid Stim Horm 0.98 mcIU/mL (0.34-5.60)
[2023-10-05 22:35] LABS: High Sensitivity Troponin 1 Hr 10 pg/mL (<20)
[2023-10-06] MEDS ORDERED: Albuterol HFA INHALER 8 gm MDI INH PRN (00:41)
[2023-10-06] MEDS ORDERED: Enoxaparin 40 MG/0.4 ML SYR SUBCUT SCH (01:00)
[2023-10-06] MEDS ORDERED: Dextrose 50% Syringe 50 ml 25 GM/50 ML SYRINGE IV PUSH PRN (01:51)
[2023-10-06 02:33] VITALS: BP 133/62
[2023-10-06] MEDS: Furosemide 20 mg/2 ml IV VIAL IV ONE (03:03)
[2023-10-06] MEDS ORDERED: Mometasone/Formoter 200/5 MDI INH SCH (07:00)
[2023-10-06] MEDS ORDERED: Senna TAB 8.6 mg TAB PO SCH (09:00)
[2023-10-06] MEDS ORDERED: Aspirin EC 81 mg TAB.EC (enteric coated) PO SCH (09:00)
[2023-10-06] MEDS ORDERED: CMCS: Prasugrel 5 MG TAB (NF) PO SCH (09:00)
== END 2023-10-06 10:00 | disposition left against medical advice (07) ==
LOC: ED 18:45 → EDHOLD 18:45
PROVIDERS: ADMIT Student in an Organized Health Care Education/Training Program; ATTEND Student in an Organized Health Care Education/Training Program

== ENCOUNTER 2023-10-06 08:07 | Observation (INO) ==
[2023-10-06 09:44] LABS: ABS Basophils 0.1 10^3/uL (0.0-0.1); ABS Eosinophils 0.2 10^3/uL (0.0-0.5); ABS Lymphocytes 1.4 10^3/uL (1.0-4.8); ABS Monocytes 0.6 10^3/uL (0.0-1.1); ABS Neutrophils 5.6 10^3/uL (1.5-7.6); ABS Nucleated RBC 0.01 10^3/ul; Eosinophil % 2.8 %; Hematocrit 32.4 % (38-53); Hemoglobin 10.6 g/dL (13.2-16.3); Lymphocyte % 17.8 %; Mean Corpuscular Hgb Conc 32.6 g/dL (31-36); Mean Platelet Volume 7.3 fL (7.5-11.2); Nucleated Red Blood Cells % 0.1 %/100WBC (0.0-0.8); Platelet Count 365 10^3/uL (150-450); Red Blood Count 3.77 10^6/uL (4.06-5.63); Red Cell Distribution Width 19.5 % (12-17)
[2023-10-06 09:53] LABS: Activated Partial Thrombo Time 30.1 seconds (26.0-38.0); INR 1.11 (0.83-1.13)
[2023-10-06 11:09] LABS: Urine Appearance Clear; Urine Bilirubin Negative (Negative); Urine Blood Negative (Negative); Urine Color Yellow; Urine Glucose Negative (Negative); Urine Ketones Negative (Negative); Urine Nitrite Negative (Negative); Urine Protein 1+ (>=30 mg/dL) (Negative); Urine Specific Gravity 1.023 (1.002-1.030); Urine Urobilinogen Negative (Negative); Urine pH 7.5 (5.0-8.0)
[2023-10-06 11:30] LABS: Urine Bacteria Absent /HPF (Absent); Urine Red Blood Cell 1+(3-5/hpf) /HPF (0-Trace); Urine White Blood Cell Trace(0-5/hpf) /HPF (0-Trace)
[2023-10-06 12:13] LABS: Albumin/Globulin Ratio 1.5 (1-3); Calcium 9.6 mg/dL (8.6-10.3); Creatinine, Serum 1.21 mg/dL (0.67-1.17); Globulin 2.6 g/dL (2-4); Magnesium 2.2 mg/dL (1.9-2.7); Potassium 4.1 mmol/L (3.5-5.0); Total Bilirubin 0.3 mg/dL (0.2-1.0); Total Protein 6.6 g/dL (6.4-8.9); eGFR CKD-EPI 65.6 (>60)
[2023-10-06] MEDS: Aspirin EC 81 mg TAB.EC (enteric coated) PO SCH (14:15)
[2023-10-06] MEDS: Heparin 5000 UNITS/ML 1 mL VIAL SUBCUT SCH (14:20)
[2023-10-06] MEDS: CMC:FLUTICAS/UMECLI/VILANT 100-62.5-25 MDI (NF) INH SCH (17:09)
[2023-10-06] MEDS: CMC:Prasugrel 5 MG TAB (NF) PO SCH (17:27)
[2023-10-06] MEDS: Lactated Ringers 1000 ml BAG 1,000 ML IV SCH (18:20)
[2023-10-07] MEDS: Albuterol HFA INHALER 8 gm MDI INH PRN (00:46)
[2023-10-07] MEDS: Albuterol/Ipratropium NEB.SOL (2.5/0.5 MG) 3 ML NEB.SOLN INH ONE (01:32)
[2023-10-07 09:53] LABS: ABS Eosinophils 0.4 10^3/uL (0.0-0.5); ABS Monocytes 0.5 10^3/uL (0.0-1.1); ABS Neutrophils 3.8 10^3/uL (1.5-7.6); Eosinophil % 6.4 %; Hematocrit 31.9 % (38-53); Hemoglobin 10.4 g/dL (13.2-16.3); Lymphocyte % 18.1 %; Mean Corpuscular Hemoglobin 27.9 pg (27-33); Mean Corpuscular Hgb Conc 32.5 g/dL (31-36); Mean Corpuscular Volume 85.9 fL (80-97); Mean Platelet Volume 6.9 fL (7.5-11.2); Platelet Count 348 10^3/uL (150-450); Red Blood Count 3.72 10^6/uL (4.06-5.63); Red Cell Distribution Width 19.4 % (12-17); White Blood Count 5.8 10^3/uL (3.6-10.2)
[2023-10-07] MEDS: Sulfur Hexaflouride MICROSPHR 25 MG VIAL IV ONE (10:28)
[2023-10-07] MEDS ORDERED: Sulfur Hexaflouride MICROSPHR 25 MG VIAL ONE (10:36)
[2023-10-07 11:02] LABS: Calcium 9.2 mg/dL (8.6-10.3); Creatinine, Serum 1.21 mg/dL (0.67-1.17); Magnesium 2.1 mg/dL (1.9-2.7); eGFR CKD-EPI 65.6 (>60)
[2023-10-07] MEDS: Furosemide 40 mg/4 ml IV VIAL IV SLOW PU ONE (15:08)
[2023-10-07] MEDS: Albuterol 2.5mg/3 ml (0.083%) NEB.SOLN INH PRN (19:10)
[2023-10-09] MEDS ORDERED: Albuterol/Ipratropium NEB.SOL (2.5/0.5 MG) 3 ML NEB.SOLN INH PRN (02:16)
[2023-10-09 07:46] LABS: Creatinine, Serum 1.38 mg/dL (0.67-1.17); Potassium 4.2 mmol/L (3.5-5.0)
[2023-10-09 10:06] VITALS: BP 140/76
== END 2023-10-09 14:10 | disposition home health service (06) ==
LOC: EDHOLD 08:07 → ED 08:07 → SUATTDRO 11:17 → MEDTELE 15:18
PROVIDERS: ADMIT Internal Medicine; ATTEND Student in an Organized Health Care Education/Training Program